=== PATIENT | male | born 1955 | race Caucasian/White ===

== ENCOUNTER → 2017-05-18 | Outpatient (CLI) | payer OTHER ==
[2017-05-18 13:33] LABS: ALT/SGPT 30 U/L (12-78); BLOOD UREA NITROGEN 16 mg/dl (7-18); BUN/CREATININE RATIO 16.3 (10-20); CALCIUM 8.5 mg/dl (8.5-10.1); CARBON DIOXIDE 26 mmol/L (21-32); CHLORIDE 110 mmol/L (98-107); CREATININE 0.99 mg/dl (0.60-1.40); GLUCOSE 100 mg/dl (70-99); POTASSIUM 3.7 mmol/L (3.5-5.1); SODIUM 142 mmol/L (136-145)
[2017-05-18 13:36] LABS: CHOLESTEROL 233 mg/dl (0-200); CHOLESTEROL/HDL RATIO 6.9; HDL CHOLESTEROL 34 mg/dl; LDL CHOLESTEROL CALCULATED 150 mg/dl; TRIGLYCERIDES 244 mg/dl (0-150); VERY LOW DENSITY LIPOPROT CALC 49 mg/dl
== END | disposition home or self-care (01) ==
LOC: C.LABMFLN 10:24
PROVIDERS: ATTEND Family Medicine
DX: I10 Essential (primary) hypertension (principal); E78.00 Pure hypercholesterolemia, unspecified

== ENCOUNTER 2017-11-20 05:23 | Inpatient (IN) | payer OTHER ==
[2017-11-14 09:50] VITALS: BMI 35.0
--- NOTE | 2017-11-14 10:15 | PAT Medication Instructions ---
Service Date Nov 14, 2017. Current Home Medication List Multivitamin (Multivitamin), 1 TAB PO QAM [Lisinopril Hctz], 1 TAB PO QAM Medication Instructions For Your Scheduled Surgery - Hold the following medications the morning of surgery: Multivitamin (Multivitamin), 1 TAB PO QAM [Lisinopril Hctz], 1 TAB PO QAM If you have any questions please call us at [phone] or [phone] or [phone]
[2017-11-14 11:22] LABS: BASO ABS # 0.15 K/uL (0-0.2); EOS % 3.8 %; EOS ABS # 0.28 K/uL (0-0.5); HEMATOCRIT 43.2 % (42-52); HEMOGLOBIN 15.4 g/dL (14.0-18.0); IG# 0.01 K/uL (0.00-0.02); LYMPH % 28.4 %; LYMPH ABS # 2.09 K/uL (1.2-3.4); MEAN CELL VOLUME 90.2 fL (80-100); MEAN CORPUSCULAR HEMOGLOBIN 32.2 pg (25-34); MEAN CORPUSCULAR HGB CONC 35.6 g/dl (32-36); MEAN PLATELET VOLUME 9.7 fL (7.4-10.4); MONO % 8.4 %; MONO ABS # 0.62 K/uL (0.11-0.59); NEUT % 57.3 %; NEUT ABS # 4.22 K/uL (1.4-6.5); PLATELET COUNT 238 K/uL (130-400); RED CELL DISTRIBUTION WIDTH CV 12.9 % (11.5-14.5); RED CELL DISTRIBUTION WIDTH SD 42.4 fL (36.4-46.3); WHITE BLOOD COUNT 7.37 K/uL (4.8-10.8)
[2017-11-14 11:37] LABS: CALCIUM 9.4 mg/dl (8.5-10.1); CREATININE 1.12 mg/dl (0.60-1.40); POTASSIUM 4.1 mmol/L (3.5-5.1)
[2017-11-20] VITALS (10 sets, daily range): BP systolic 120–173; BP diastolic 63–95; PULSE 54–74; TEMP 36.7–37.6; O2SAT 95–99; Ht 172.7 cm; Wt 105.6 kg
[~2017-11-20] VITALS: Ht 172.7 cm; Wt 105.6 kg
[~2017-11-20 05:23] MED LIST: LISINOPRIL HCTZ PO; MULT-506 PO
[2017-11-20] MEDS ORDERED: LACTATED RINGER'S 1000ML 1,000 ML IV SCH ×2 (06:00→08:12)
[2017-11-20] MEDS ORDERED: CEFAZOLIN 2000MG IV PUSH 15 ML IV SCH (06:00)
[2017-11-20] MEDS ORDERED: EpHEDrine SULFATE INJ 50 MG/ML AMP IV PRN (06:15)
[2017-11-20] MEDS ORDERED: HYDROmorphone INJ 1 MG/ML SYR IV PRN (06:15)
[2017-11-20] MEDS ORDERED: ONDANSETRON INJ 2 MG/ML 2 ML VIAL IV PRN ×2 (06:15→08:15)
[2017-11-20] MEDS ORDERED: PROMETHAZINE HCL INJ 12.5 MG in SODIUM CHLORIDE 0.9% 50ML 50 ML IV PRN ×2 (06:15→10:15)
[2017-11-20] MEDS ORDERED: ATROPINE SULFATE 0.1 MG/ML 5ML SYR IV PRN (06:15)
[2017-11-20] MEDS ORDERED: FENTANYL CITRATE INJ 50 MCG/1 ML 2 ML VIAL ONE ×2 (06:31→07:26)
[2017-11-20] MEDS ORDERED: MIDAZOLAM HCL 1 MG/ML 2ML VIAL ONE (06:31)
[2017-11-20] MEDS ORDERED: CEFAZOLIN SOD 1 GM VIAL ONE (06:40)
[2017-11-20] MEDS ORDERED: BUPIVACAINE 0.5 % 5 MG/1 ML MPF 30ML VIAL ONE (06:40)
[2017-11-20] MEDS ORDERED: LIDOCAINE HCL 1% 20 ML VIAL ONE (06:40)
--- NOTE | 2017-11-20 06:49 | History & Physical Bridge Note ---
H&P Re-Evaluation Bridge Note: I have examined the patient, reviewed the History & Physical and in the interval since the performance of the History & Physical I have noted the following changes of clinical significance: No changes noted
[2017-11-20] MEDS ORDERED: LIDOCAINE HCL 2% 2 ML VIAL (20MG/ML) ONE (07:38)
[2017-11-20] MEDS ORDERED: GLYCOPYRROLATE INJ 0.2 MG/ML VIAL ONE (07:38)
[2017-11-20] MEDS ORDERED: PROPOFOL IV EMULSION 10 MG/ML 20 ML VIAL IV ONE (07:38)
[2017-11-20] MEDS ORDERED: ROCURONIUM BROMIDE 10 MG/ML 5 ML VIAL IV ONE (07:38)
[2017-11-20] MEDS ORDERED: ONDANSETRON INJ 2 MG/ML 2 ML VIAL ONE (07:38)
[2017-11-20] MEDS ORDERED: DEXAMETHASONE SOD INJ 4 MG/ML VIAL ONE (07:38)
[2017-11-20] MEDS ORDERED: EpHEDrine SULFATE 50MG/5ML SYR ONE (07:38)
[2017-11-20] MEDS ORDERED: NEOSTIGMINE METHYLSULFATE 5 MG/5 ML SYR ONE (07:38)
--- NOTE | 2017-11-20 08:11 | [facility] Operative Report ---
Operative Report Operative Date Nov 20, 2017. Pre-Operative Diagnosis incisional hernia Post-Operative Diagnosis same Procedure(s) Performed incisional hernia repair Surgeon Rex Networking Engineer Surgeon(s) Tim Vo Estimated Blood Loss 10cc Findings 2 defects- umbilical and supraumbilical- approx 3 am Drains None Anesthesia Type General Complication(s) none Disposition Recovery Room / PACU I attest to the content of the Intraoperative Record and any orders documented therein. Any exceptions are noted below.
[2017-11-20] MEDS ORDERED: HYDROCODONE/ACETAMIN 5/325MG TAB PO PRN (08:15)
[2017-11-20] MEDS ORDERED: MoRPHine SULFATE 4 MG/ML 1 ML CARP\\VIAL IV PRN (08:15)
[2017-11-20] MEDS ORDERED: MoRPHine SULFATE 2 MG/ML CARP IV PRN (08:15)
[2017-11-20] MEDS ORDERED: PROMETHAZINE HCL INJ 25 MG in SODIUM CHLORIDE 0.9% 50ML 50 ML IV PRN (08:15)
--- NOTE | 2017-11-20 08:31 | OPERATIVE REPORT ---
DATE OF OPERATION: 11/20/2017 NAME OF OPERATION: Laparoscopic incisional hernia repair. PREOPERATIVE DIAGNOSIS: Incisional hernia. POSTOPERATIVE DIAGNOSIS: Same. STAFF SURGEON: Dr. Cleve Goodman. HEEL NAIL RASPER: Derian Vo PA-C ANESTHESIA: General. FINDINGS: The patient had 2 defects, one at the umbilicus and 1 just above in the supraumbilical area, equaling greater than 3 cm in diameter with omentum incarcerated within the sac. DESCRIPTION OF PROCEDURE: The patient was brought into the operating room and placed on the operating table in the supine position. Pneumatic stockings and orogastric tube were placed. 0.5% plain Marcaine was used to anesthetize all incisions. Incision was made in the left upper quadrant, carrying dissection down, identifying the peritoneum, placing a Veress needle and producing pneumoperitoneum. An 11-mm port was placed at this level and then under visualization on the left side, two 5-mm ports were placed. The omentum was then taken down both bluntly and sharply, reducing the 2 hernias. At this point, the fascia was exposed by mobilizing adipose tissue inferiorly and superiorly away from the fascia. A 12.5-cm piece of Surgimesh was obtained to get a 4-cm overlap. It was placed into the abdomen. The polypropylene was brought up against the fascia with the silicone toward the bowel using a small puncture and over the defect and using a suture passer. At this point, the mesh was secured to the abdominal wall using absorbable tacks in 2 layers, 1 outer and 1 inner row. At this point, the pneumoperitoneum was reduced. All ports were removed. The fascia in the left upper quadrant closed using interrupted 0 Vicryl suture. Subcutaneous tissue reapproximated using 0 Vicryl suture and then the skin reapproximated in the left upper quadrant using subcuticular 4-0 Monocryl with Steri-Strips. The other sites all closed using 5-0 Prolene suture. My business support assistant helped with entering the abdominal cavity, exposing the hernia sac, dissecting the tissue free and then closure of the abdomen as well as placement of the mesh. I attest to the content of the Intraoperative Record and any orders documented therein. Any exception s are noted below.
[2017-11-20] MEDS: FENTANYL CITRATE INJ 50 MCG/1 ML 2 ML VIAL IV PRN ×3 (08:37→08:48)
[2017-11-20] MEDS ORDERED: HYDR-5688 PO (08:39)
[2017-11-20] MEDS ORDERED: CEPH500C2 PO (08:39)
--- NOTE | 2017-11-20 08:42 | Discharge Instructions ---
Discharge Instructions Date of Service Nov 20, 2017. Admission Reason for Admission: Incisional Hernia Discharge Discharge Diagnosis / Problem: incisional hernia Discharge Goals Goal(s): Decrease discomfort, Improve function, Improve disease control Activity Recommendations Activity Limitations: as noted below Lifting Limitations: no more than 25 pounds Exercise/Sports Limitations: until after follow-up appointment May Resume Sexual Activity: when tolerated Shower/Bathe: tomorrow Driving or Machine Use: resume 3 days after discharge . Instructions / Follow-Up Instructions / Follow-Up SPECIAL CARE INSTRUCTIONS: * Cover incisions and change daily for comfort/drainage. * Leave steri strips in place Avoid constipation - may use Senokot S and Milk of magnesia twice daily as directed on the package * May use ibuprofen for pain as tolerated. * Expect some swelling and bruising. Call your doctor if: * Temperature above 101 degrees * Pain not relieved by pain medicine ordered * There is increased drainage or redness from any incision * You have any unanswered questions or concerns [phone]. FOLLOW UP VISIT: If not already scheduled, please call the office for a follow-up visit. for next week- wound check and some suture removal OFFICE PHONE NUMBER: Dr. Godoman Office Current Hospital Diet Patient's current hospital diet: Regular Diet Discharge Diet Recommended Diet: Regular Diet Procedures Procedures Performed: incisional hernia repair Pending Studies Studies pending at discharge: no Medical Emergencies . Who to Call and When: Medical Emergencies: If at any time you feel your situation is an emergency, please call 911 immediately. . Non-Emergent Contact Non-Emergency issues call your: Primary Care Provider, Surgeon . "Provider Documentation" section prepared by Cleve Goodman. .
--- NOTE | 2017-11-20 09:04 | Anesthesiology Progress Note ---
Anesthesia Post Op Note Date & Time Nov 20, 2017 at 09:03 Vital Signs Pain Intensity: 2 Vital Signs Past 12 Hours Date Time Temp Pulse Resp B/P (MAP) Pulse Ox O2 Delivery O2 Flow Rate FiO2 11/20/17 08:55 68 16 132/71 92 Nasal Cannula 3 11/20/17 08:45 66 20 132/72 98 Oxymask 10 11/20/17 08:35 69 20 150/81 99 Oxymask 10 11/20/17 08:29 36.5 83 10 161/84 94 Oxymask 10 11/20/17 06:02 37.3 66 18 173/95 (121) 96 Room Air Notes Mental Status: alert / awake / arousable, participated in evaluation Pt Amnestic to Procedure: Yes Nausea / Vomiting: adequately controlled Pain: adequately controlled Airway Patency, RR, SpO2: stable & adequate BP & HR: stable & adequate Hydration State: stable & adequate Anesthetic Complications: no major complications apparent Awake, doing well, no complaints. VSS.
--- NOTE | 2017-11-20 11:48 | Medical Consult ---
Consultation Date of Consultation: Nov 20, 2017. Attending Physician: Cleve Goodman M.D. History of Present Illness 62 years old man with past medical history of hypertension and dyslipidemia presented to the hospital for an elective repair of her ventral hernia. Procedure went uneventful and we were consulted for medical co management. Patient has no complaints at this time. Past Medical/Surgical History Hypertension Dyslipidemia Obesity Ventral hernia Social History Smoking Status: Never Smoker Allergies Coded Allergies: Statins (Verified Adverse Reaction, Mild, MUSCLE ACHES, 11/20/17) Current Inpatient Medications Current Inpatient Medications Medications (Trade) Dose Ordered Sig/Shae Route Start Time Stop Time Status Last Admin Dose Admin Lactated Ringer's 1,000 ml @ 15 mls/hr Q24H IV 11/20/17 06:00 11/21/17 05:59 11/20/17 06:30 15 MLS/HR Cefazolin Sodium 15 ml @ 3.75 mls/ min PREOP IV 11/20/17 06:00 11/20/17 18:00 11/20/17 07:12 3.75 MLS/MIN Miscellaneous Information (Order Awaiting Action) 1 ea QS N/A 11/20/17 10:15 12/20/17 10:14 Lactated Ringer's 1,000 ml @ 50 mls/hr Q20H IV 11/20/17 08:12 12/20/17 08:11 Cefazolin Sodium 1000 mg/Syringe 7.5 ml @ 2.5 mls/min Q8H IV 11/20/17 14:00 11/30/17 13:59 Heparin Sodium (Porcine) (Heparin Sq 5000 Unit/0.5ml) 5,000 unit Q12H SQ 11/21/17 08:00 12/21/17 07:59 UNV Acetaminophen/ Hydrocodone Bitart ([place] 5/325 Tab) 1 tab Q4 PRN PO 11/20/17 08:15 12/04/17 08:14 Acetaminophen/ Hydrocodone Bitart ([place] 5/325 Tab) 2 tab Q4 PRN PO 11/20/17 08:15 12/04/17 08:14 Morphine Sulfate (MoRPHine SULFATE INJ) 2 mg Q4H PRN IV 11/20/17 08:15 12/04/17 08:14 Morphine Sulfate (MoRPHine SULFATE INJ) 4 mg Q4H PRN IV 11/20/17 08:15 12/04/17 08:14 Promethazine HCl 25 mg/Sodium Chloride 51 ml @ 204 mls/hr Q6H PRN IV 11/20/17 08:15 12/20/17 08:14 Senna/Docusate Sodium (Senokot S Tab) 1 tab BID PO 11/20/17 11:00 12/20/17 10:59 Magnesium Hydroxide (Milk Of Magnesia Susp) 30 ml BID PO 11/20/17 11:00 12/20/17 10:59 Ondansetron HCl (Zofran Inj) 4 mg Q6H PRN IV 11/20/17 08:15 12/20/17 08:14 Promethazine HCl 12.5 mg/Sodium Chloride 50.5 ml @ 204 mls/hr Q6H PRN IV 11/20/17 10:15 12/20/17 10:14 Review of Systems Constitutional: No fever, No chills, No sweats, No weight loss, No weakness, No fatigue, No problem reported Eyes: No worsening of vision, No eye pain, No redness, No discharge, No diplopia, No problem reported ENT: No hearing loss, No unusual epistaxis, No nasal symptoms, No sore throat, No tinnitus, No dental problems, No trouble swallowing, No problem reported Respiratory: No cough, No sputum, No wheezing, No shortness of breath, No dyspnea on exertion, No dyspnea at rest, No hemoptysis, No problem reported Cardiovascular: No chest pain, No orthopnea, No PND, No edema, No claudication , No palpitations, No problem reported Abdomen: No pain, No nausea, No vomiting, No diarrhea, No constipation, No GI bleeding, No problem reported Musculoskeletal: No joint pain, No muscle pain, No swelling, No calf pain, No problem reported Genitourinary - Male: No hematuria, No dysuria, No urinary frequency, No urinary urgency, No urinary hesitancy, No urinary retention, No urinary incontinence, No penile discharge, No lesions, No impotence, No problem reported Neurologic: No memory loss, No paralysis, No weakness, No numbness/tingling, No vertigo, No balance problems, No problem reported Psychiatric: No depression symptoms, No anhedonism, No anxiety, No insomnia, No substance abuse, No problem reported Endocrine: No fatigue, No excessive thirst, No excessive urination, No problem reported Hematologic / Lymphatic: No abnormal bleeding/bruising, No clotting problems, No swollen lymph nodes, No night sweats, No problem reported Integumentary: No rash, No itch, No new/changing skin lesions, No color change , No bleeding, No problem reported Allergic / Immunologic: No environmental allergies, No seasonal allergies, No pet sensitivities, No food allergies, No hives, No frequent infections, No poor healing, No prolonged convalescence, No problem reported Physical Exam Date Time Temp Pulse Resp B/P (MAP) Pulse Ox O2 Delivery O2 Flow Rate FiO2 11/20/17 10:30 74 18 120/64 (82) 99 11/20/17 10:10 54 18 138/84 (102) 96 11/20/17 09:30 Nasal Cannula 3.0 11/20/17 09:30 36.7 59 16 122/72 (89) 95 Nasal Cannula 3.0 11/20/17 09:30 95 Nasal Cannula 3.0 11/20/17 09:15 56 22 126/79 93 Nasal Cannula 3 11/20/17 09:05 36.2 56 19 143/67 93 Nasal Cannula 3 11/20/17 08:55 68 16 132/71 92 Nasal Cannula 3 11/20/17 08:45 66 20 132/72 98 Oxymask 10 11/20/17 08:35 69 20 150/81 99 Oxymask 10 11/20/17 08:29 36.5 83 10 161/84 94 Oxymask 10 11/20/17 06:02 37.3 66 18 173/95 (121) 96 Room Air General Appearance: WD/WN, no apparent distress Head: normocephalic, atraumatic Eyes: normal inspection, EOMI ENT: normal ENT inspection, hearing grossly normal, pharynx normal Neck: supple Respiratory/Chest: chest non-tender, lungs clear, normal breath sounds, no respiratory distress, no accessory muscle use Cardiovascular: regular rate, rhythm, no edema, no gallop, no JVD, no murmur, normal peripheral pulses Abdomen/GI: normal bowel sounds, soft, + tenderness, + distended Back: normal inspection Extremities/Musculoskelatal: normal inspection, no calf tenderness, normal capillary refill, no pedal edema, normal range of motion Neurologic/Psych: qualitative researcher II-XII nml as tested, no motor/sensory deficits, alert, normal mood/affect, normal reflexes, oriented x 3 Skin: normal color, warm/dry, no rash Laboratory Results Recent labs showed white blood cell count of 7.3 hemoglobin of 15.4 platelet count of 238, BUN 17 creatinine 1.1 sodium is 139 potassium 4.1 Assessment & Plan 62 years old man with past medical history of hypertension and dyslipidemia presented to the hospital for an elective repair of her ventral hernia. Procedure went uneventful and we were consulted for medical co management. Patient has no complaints at this time. Assessment Hypertension Dyslipidemia Obesity Sinus bradycardia Ventral hernia status post repair Assessment: severe osteoarthritis that failed outpatient conservative measures. Patient presented to the hospital for an elective procedure Plan Status post laparoscopic ventral hernia repair, went uneventful full 3/12 postoperative day #0 Patient tolerated procedure well with minimal blood loss Appears to be stable Continue outpatient medications Follow-up labs Ensure adequate oral/parenteral intake Pain management DVT prophylaxis as per the choice of primary surgical team
[2017-11-20] MEDS: MAGNESIUM HYDROXIDE SUSP 30 ML UDC PO SCH ×2 (11:59→21:14)
[2017-11-20] MEDS: DOCUSATE SODIUM/SENNA 50/8.6MG TAB PO SCH ×2 (11:59→21:14)
[2017-11-20] MEDS: HYDROCODONE/ACETAMIN 5/325MG TAB PO PRN ×2 (12:00→16:24)
[2017-11-20] MEDS: CEFAZOLIN IV 1,000 MG in SYRINGE 0 ML IV SCH ×2 (13:58→21:14)
[2017-11-20] MEDS ORDERED: IV FLUIDS COMPLETED PRN (16:30)
[2017-11-21 03:24] VITALS: BP 145/75; PULSE 64; TEMP 36.7; O2SAT 95
[2017-11-21] MEDS: CEFAZOLIN IV 1,000 MG in SYRINGE 0 ML IV SCH ×3 (05:17→21:44)
[2017-11-21 05:47] LABS: BASO % 0.4 %; BASO ABS # 0.04 K/uL (0-0.2); EOS % 0.4 %; EOS ABS # 0.04 K/uL (0-0.5); HEMATOCRIT 37.4 % (42-52); HEMOGLOBIN 12.8 g/dL (14.0-18.0); IG# 0.03 K/uL (0.00-0.02); LYMPH % 15.6 %; LYMPH ABS # 1.65 K/uL (1.2-3.4); MEAN CELL VOLUME 90.6 fL (80-100); MEAN CORPUSCULAR HGB CONC 34.2 g/dl (32-36); MEAN PLATELET VOLUME 9.9 fL (7.4-10.4); MONO % 8.1 %; MONO ABS # 0.86 K/uL (0.11-0.59); NEUT % 75.2 %; NEUT ABS # 7.96 K/uL (1.4-6.5); PLATELET COUNT 208 K/uL (130-400); RED CELL DISTRIBUTION WIDTH CV 12.9 % (11.5-14.5); RED CELL DISTRIBUTION WIDTH SD 42.8 fL (36.4-46.3); WHITE BLOOD COUNT 10.58 K/uL (4.8-10.8)
[2017-11-21 05:58] LABS: INR 1.1 (0.9-1.1); PTT PATIENT 24.3 SECONDS (21.0-31.0)
[2017-11-21] MEDS ORDERED: IBUPROFEN 600 MG TAB PO PRN (06:00)
--- NOTE | 2017-11-21 06:07 | Surgery Progress Note ---
Surgery Progress Note Date of Service Nov 21, 2017. Subjective some mild pain- doesn't want pain med Objective Vital Signs: Date Time Temp Pulse Resp B/P (MAP) Pulse Ox O2 Delivery O2 Flow Rate FiO2 11/21/17 03:24 36.7 64 17 145/75 (98) 95 CPAP 11/21/17 00:15 Room Air 11/20/17 22:55 36.8 72 17 120/63 (82) 96 CPAP 11/20/17 19:01 37.6 72 18 125/75 (92) 96 Room Air 11/20/17 15:40 Room Air 11/20/17 14:52 37.1 65 20 143/82 (102) 96 Room Air 11/20/17 13:08 55 154/85 (108) 11/20/17 12:57 69 16 165/95 (118) 96 Nasal Cannula 3.0 11/20/17 11:36 54 18 120/70 (87) 99 11/20/17 10:30 74 18 120/64 (82) 99 11/20/17 10:10 54 18 138/84 (102) 96 11/20/17 09:30 Nasal Cannula 3.0 11/20/17 09:30 36.7 59 16 122/72 (89) 95 Nasal Cannula 3.0 11/20/17 09:30 95 Nasal Cannula 3.0 11/20/17 09:15 56 22 126/79 93 Nasal Cannula 3 11/20/17 09:05 36.2 56 19 143/67 93 Nasal Cannula 3 11/20/17 08:55 68 16 132/71 92 Nasal Cannula 3 11/20/17 08:45 66 20 132/72 98 Oxymask 10 11/20/17 08:35 69 20 150/81 99 Oxymask 10 11/20/17 08:29 36.5 83 10 161/84 94 Oxymask 10 General Appearance: no apparent distress Respiratory/Chest: no respiratory distress Abdomen: normal bowel sounds, + distended Incision(s): dry, intact Laboratory Results: Results Past 24 Hours Test 11/21/17 05:19 Range/Units White Blood Count 10.58 4.8-10.8 K/uL Red Blood Count 4.13 4.7-6.1 M/uL Hemoglobin 12.8 14.0-18.0 g/dL Hematocrit 37.4 42-52 % Mean Corpuscular Volume 90.6 80-100 fL Mean Corpuscular Hemoglobin 31.0 25-34 pg Mean Corpuscular Hemoglobin Concent 34.2 32-36 g/dl Platelet Count 208 130-400 K/uL Mean Platelet Volume 9.9 7.4-10.4 fL Neutrophils (%) (Auto) 75.2 % Lymphocytes (%) (Auto) 15.6 % Monocytes (%) (Auto) 8.1 % Eosinophils (%) (Auto) 0.4 % Basophils (%) (Auto) 0.4 % Neutrophils # (Auto) 7.96 1.4-6.5 K/uL Lymphocytes # (Auto) 1.65 1.2-3.4 K/uL Monocytes # (Auto) 0.86 0.11-0.59 K/uL Eosinophils # (Auto) 0.04 0-0.5 K/uL Basophils # (Auto) 0.04 0-0.2 K/uL RDW Standard Deviation 42.8 36.4-46.3 fL RDW Coefficient of Variation 12.9 11.5-14.5 % Immature Granulocyte % (Auto) 0.3 % Immature Granulocyte # (Auto) 0.03 0.00-0.02 K/uL Prothrombin Time 11.2 9.0-12.0 SECONDS Prothromb Time International Ratio 1.1 0.9-1.1 Activated Partial Thromboplast Time 24.3 21.0-31.0 SECONDS Partial Thromboplastin Ratio 0.9 Assessment & Plan 11/21/17- s/p laparoscopic repair of incisional hernia also had small umb hernia. Cont IV atbx, monitor GI function- ambulate. Plan d/c tomorrow
[2017-11-21 06:16] LABS: ALBUMIN 3.1 gm/dl (3.4-5.0); CALCIUM 8.2 mg/dl (8.5-10.1); CREATININE 1.2 mg/dl (0.60-1.40); POTASSIUM 3.8 mmol/L (3.5-5.1)
[2017-11-21 07:10] VITALS: BP 117/52; PULSE 64; TEMP 36.8; O2SAT 96
--- NOTE | 2017-11-21 08:10 | Anesthesiology Progress Note ---
Anesthesia Post Op Note Date & Time Nov 21, 2017 at 08:09 Vital Signs Pain Intensity: 3.0 Vital Signs Past 12 Hours Date Time Temp Pulse Resp B/P (MAP) Pulse Ox O2 Delivery O2 Flow Rate FiO2 11/21/17 07:10 36.8 64 18 117/52 (73) 96 Room Air 11/21/17 03:24 36.7 64 17 145/75 (98) 95 CPAP 11/21/17 00:15 CPAP 11/20/17 22:55 36.8 72 17 120/63 (82) 96 CPAP Notes Mental Status: alert / awake / arousable Pt Amnestic to Procedure: Yes Nausea / Vomiting: adequately controlled Pain: adequately controlled BP & HR: stable & adequate Hydration State: stable & adequate Anesthetic Complications: no major complications apparent
[2017-11-21] MEDS: DOCUSATE SODIUM/SENNA 50/8.6MG TAB PO SCH ×2 (09:05→21:40)
[2017-11-21] MEDS: MAGNESIUM HYDROXIDE SUSP 30 ML UDC PO SCH ×2 (09:09→21:44)
[2017-11-21] MEDS: HEPARIN SOD 5000 UNIT/0.5 ML CARP SQ SCH ×2 (09:09→19:54)
[2017-11-21 12:25] VITALS: BP 157/83; PULSE 61; TEMP 36.7; O2SAT 95
[2017-11-21] MEDS: HYDROCODONE/ACETAMIN 5/325MG TAB PO PRN (12:31)
[2017-11-21 15:26] VITALS: BP 164/76; PULSE 66; TEMP 37.1; O2SAT 93
[2017-11-21] MEDS ORDERED: BISACODYL 10 MG SUPP PR STA (16:08)
[2017-11-21] MEDS ORDERED: BISACODYL 10 MG SUPP ONE ×3 (19:49→21:41)
--- NOTE | 2017-11-21 22:03 | Progress Note ---
Subjective Date of Service: Nov 21, 2017. Subjective Pt evaluation today including: conversation w/ patient, physical exam Patient reports no new complaints today. Review of Systems Constitutional: No fever, No chills Eyes: No worsening of vision ENT: No hearing loss Respiratory: No cough Cardiac: No chest pain Abdomen: + pain Musculoskeletal: No joint pain Neurologic: No memory loss Psychiatric: No depression symptoms Heme: No abnormal bleeding/bruising Endo: No fatigue Skin: No rash All Other Systems: Reviewed and Negative Medications Current Inpatient Medications Medications (Trade) Dose Ordered Sig/Shae Route Start Time Stop Time Status Last Admin Dose Admin Miscellaneous Information (Order Awaiting Action) 1 ea QS N/A 11/20/17 10:15 12/20/17 10:14 Cefazolin Sodium 1000 mg/Syringe 7.5 ml @ 2.5 mls/min Q8H IV 11/20/17 14:00 11/30/17 13:59 11/21/17 21:44 2.5 MLS/MIN Heparin Sodium (Porcine) (Heparin Sq 5000 Unit/0.5ml) 5,000 unit Q12H SQ 11/21/17 08:00 12/21/17 07:59 11/21/17 19:54 5,000 UNIT Acetaminophen/ Hydrocodone Bitart ([place] 5/325 Tab) 1 tab Q4 PRN PO 11/20/17 08:15 12/04/17 08:14 Acetaminophen/ Hydrocodone Bitart ([place] 5/325 Tab) 2 tab Q4 PRN PO 11/20/17 08:15 12/04/17 08:14 11/21/17 12:31 2 TAB Morphine Sulfate (MoRPHine SULFATE INJ) 2 mg Q4H PRN IV 11/20/17 08:15 12/04/17 08:14 Morphine Sulfate (MoRPHine SULFATE INJ) 4 mg Q4H PRN IV 11/20/17 08:15 12/04/17 08:14 Promethazine HCl 25 mg/Sodium Chloride 51 ml @ 204 mls/hr Q6H PRN IV 11/20/17 08:15 12/20/17 08:14 Senna/Docusate Sodium (Senokot S Tab) 1 tab BID PO 11/20/17 11:00 12/20/17 10:59 11/21/17 21:40 1 TAB Magnesium Hydroxide (Milk Of Magnesia Susp) 30 ml BID PO 11/20/17 11:00 12/20/17 10:59 11/21/17 21:44 30 ML Ondansetron HCl (Zofran Inj) 4 mg Q6H PRN IV 11/20/17 08:15 12/20/17 08:14 Promethazine HCl 12.5 mg/Sodium Chloride 50.5 ml @ 204 mls/hr Q6H PRN IV 11/20/17 10:15 12/20/17 10:14 Miscellaneous (Iv Fluids Completed) 1 ea PRN PRN N/A 11/20/17 16:30 11/20/18 16:29 Ibuprofen (Motrin Tab) 600 mg Q6 PRN PO 11/21/17 06:00 12/21/17 05:59 Objective Vital Signs Date Time Temp Pulse Resp B/P (MAP) Pulse Ox O2 Delivery O2 Flow Rate FiO2 11/21/17 15:26 37.1 66 16 164/76 (105) 93 Room Air 11/21/17 12:25 36.7 61 16 157/83 (107) 95 Room Air 11/21/17 07:40 Room Air 11/21/17 07:10 36.8 64 18 117/52 (73) 96 Room Air 11/21/17 03:24 36.7 64 17 145/75 (98) 95 CPAP 11/21/17 00:15 CPAP 11/20/17 22:55 36.8 72 17 120/63 (82) 96 CPAP Physical Exam General Appearance: WD/WN, no apparent distress Eyes: normal inspection ENT: normal ENT inspection Neck: supple, no adenopathy Respiratory/Chest: chest non-tender, lungs clear, normal breath sounds, no accessory muscle use Cardiovascular: regular rate, rhythm, no edema Abdomen: normal bowel sounds, soft, no pulsatile mass, + tenderness (mild) Extremities: normal range of motion Neurologic/Psychiatric: alert, oriented x 3 Skin: normal color Lymphatic: no adenopathy Laboratory Results Last 24 Hours Test 11/21/17 05:19 White Blood Count 10.58 K/uL Red Blood Count 4.13 M/uL Hemoglobin 12.8 g/dL Hematocrit 37.4 % Mean Corpuscular Volume 90.6 fL Mean Corpuscular Hemoglobin 31.0 pg Mean Corpuscular Hemoglobin Concent 34.2 g/dl Platelet Count 208 K/uL Mean Platelet Volume 9.9 fL Neutrophils (%) (Auto) 75.2 % Lymphocytes (%) (Auto) 15.6 % Monocytes (%) (Auto) 8.1 % Eosinophils (%) (Auto) 0.4 % Basophils (%) (Auto) 0.4 % Neutrophils # (Auto) 7.96 K/uL Lymphocytes # (Auto) 1.65 K/uL Monocytes # (Auto) 0.86 K/uL Eosinophils # (Auto) 0.04 K/uL Basophils # (Auto) 0.04 K/uL RDW Standard Deviation 42.8 fL RDW Coefficient of Variation 12.9 % Immature Granulocyte % (Auto) 0.3 % Immature Granulocyte # (Auto) 0.03 K/uL Prothrombin Time 11.2 SECONDS Prothromb Time International Ratio 1.1 Activated Partial Thromboplast Time 24.3 SECONDS Partial Thromboplastin Ratio 0.9 Sodium Level 139 mmol/L Potassium Level 3.8 mmol/L Chloride Level 106 mmol/L Carbon Dioxide Level 26 mmol/L Anion Gap 7.0 mmol/L Blood Urea Nitrogen 21 mg/dl Creatinine 1.20 mg/dl Est Creatinine Clear Calc Drug Dose 77.1 ml/min Estimated GFR () 75.7 Estimated GFR (Non- 65.3 BUN/Creatinine Ratio 17.9 Random Glucose 131 mg/dl Calcium Level 8.2 mg/dl Magnesium Level 2.7 mg/dl Total Bilirubin 0.4 mg/dl Aspartate Amino Transf (AST/SGOT) 35 U/L Alanine Aminotransferase (ALT/SGPT) 63 U/L Alkaline Phosphatase 82 U/L Total Protein 6.0 gm/dl Albumin 3.1 gm/dl Globulin 2.9 gm/dl Albumin/Globulin Ratio 1.1 Hepatitis C Antibody Screen NEG Assessment and Plan 62 years old man with past medical history of hypertension and dyslipidemia presented to the hospital for an elective repair of her ventral hernia. Procedure went uneventful and we were consulted for medical co management. Patient has no complaints at this time. Assessment Hypertension Continue current meds BP appears to be at goal Dyslipidemia Cont home meds. stable Obesity Recommend home diet and exercise Sinus bradycardia stable Ventral hernia status post repair Status post laparoscopic ventral hernia repair, went uneventful full 3/12 postoperative day #1 Patient tolerated procedure well\ Continues to be stable Ensure adequate oral/parenteral intake Pain management DVT prophylaxis as per the choice of primary surgical team Will sign off case today. Please call us if any questions or concerns
[2017-11-21 22:54] VITALS: BP 148/69; PULSE 78; TEMP 37.9; O2SAT 93
[2017-11-22 05:30] VITALS: TEMP 37.3
[2017-11-22] MEDS ORDERED: SOD PHOSPHATE/SOD BIPHOSPHATE ENEMA 132 ML BTL PR STA (06:16)
--- NOTE | 2017-11-22 06:29 | Surgery Progress Note ---
Surgery Progress Note Date of Service Nov 22, 2017. Subjective crampy/gas pains- associated with vigorous bowel sounds no signif bowel movement yet, some dry heaves, no emesis Objective Vital Signs: Date Time Temp Pulse Resp B/P (MAP) Pulse Ox O2 Delivery O2 Flow Rate FiO2 11/22/17 05:30 37.3 11/22/17 01:57 CPAP 11/21/17 22:54 37.9 78 18 148/69 (95) 93 Room Air 11/21/17 15:26 37.1 66 16 164/76 (105) 93 Room Air 11/21/17 15:25 Room Air 11/21/17 12:25 36.7 61 16 157/83 (107) 95 Room Air 11/21/17 07:40 Room Air 11/21/17 07:10 36.8 64 18 117/52 (73) 96 Room Air General Appearance: + mild distress Respiratory/Chest: no respiratory distress Abdomen: + distended, + pertinent finding (has active bowel sounds, hyperactive at times) Incision(s): dry, intact Laboratory Results: Results Past 24 Hours Test 11/22/17 06:06 Range/Units Assessment & Plan 11/22/17- seems to have good bowel sounds- had some hard stool out- will check film, try enema and Reglan. also try some Miralax. May need NG if vomits but does not seem to have diffuse ileus,.. check labs addendum- low K+ and likely colonic ileus- see how he does with above plan- hold NG unless worsens. replace K+ 11/21/17- s/p laparoscopic repair of incisional hernia also had small umb hernia. Cont IV atbx, monitor GI function- ambulate. Plan d/c tomorrow 11/21/17- s/p laparoscopic repair of incisional hernia also had small umb hernia. Cont IV atbx, monitor GI function- ambulate. Plan d/c tomorrow
[2017-11-22] MEDS: CEFAZOLIN IV 1,000 MG in SYRINGE 0 ML IV SCH ×3 (06:31→21:19)
[2017-11-22 07:32] VITALS: BP 160/90; PULSE 72; TEMP 37.4; O2SAT 95
--- NOTE | 2017-11-22 07:38 | DIAGNOSTIC IMAGING REPORT ---
CHEST AND ABDOMEN 2 VIEWS HISTORY: Ileus. Generalized abdominal pain. COMPARISON: FINDINGS: Low lung volumes. The heart is enlarged. Interstitial and vascular thickening may represent mild congestive change. No focal lung consolidations to suggest pneumonia. Prior cholecystectomy. Old, healed right clavicle fracture. No renal or ureteral calculi. Multiple mildly dilated gas-filled loops of large small bowel seen throughout the abdomen. Findings favor an ileus. These contain small fluid levels. IMPRESSION: 1. Multiple mildly dilated gas filled loops of large and small bowel seen within the abdomen. This favors an ileus. No definite evidence for obstruction. 2. Cardiomegaly with mild congestive change. Electronically signed by: Truman Benitez M.D. 11/22/2017 7:37 AM Dictated Date/Time: 11/22/2017 7:35 AM
[2017-11-22 07:52] VITALS: O2SAT 95
[2017-11-22 07:56] LABS: CREATININE 1.01 mg/dl (0.60-1.40); PHOSPHORUS 2.1 mg/dl (2.5-4.9); POTASSIUM 3.1 mmol/L (3.5-5.1)
[2017-11-22] MEDS: METOCLOPRAMIDE HCL INJ 5 MG/ML 2 ML VIAL IV. SCH ×3 (08:40→19:38)
[2017-11-22] MEDS: HEPARIN SOD 5000 UNIT/0.5 ML CARP SQ SCH ×2 (08:47→19:41)
[2017-11-22] MEDS: DOCUSATE SODIUM/SENNA 50/8.6MG TAB PO SCH ×2 (08:48→21:18)
[2017-11-22] MEDS: MAGNESIUM HYDROXIDE SUSP 30 ML UDC PO SCH (08:49)
[2017-11-22] MEDS: POLYETHYLENE (MIRALAX) 17 GM PACK PO SCH ×2 (09:19→12:35)
[2017-11-22] MEDS: POTASSIUM CHLR 10MEQ / WTR IV SCH ×4 (09:19→12:35)
[2017-11-22 15:33] VITALS: BP 134/74; PULSE 71; TEMP 37.5; O2SAT 92
[2017-11-22 15:45] VITALS: O2SAT 92
[2017-11-22 22:52] VITALS: BP 151/70; PULSE 71; TEMP 36.8; O2SAT 94
[2017-11-23 05:33] LABS: CALCIUM 8.1 mg/dl (8.5-10.1); CREATININE 1.06 mg/dl (0.60-1.40); PHOSPHORUS 2.4 mg/dl (2.5-4.9); POTASSIUM 3.9 mmol/L (3.5-5.1)
[2017-11-23] MEDS: CEFAZOLIN IV 1,000 MG in SYRINGE 0 ML IV SCH (05:40)
[2017-11-23 07:37] VITALS: BP 139/95; PULSE 69; TEMP 37.3; O2SAT 99
[2017-11-23] MEDS: HEPARIN SOD 5000 UNIT/0.5 ML CARP SQ SCH (08:00)
--- NOTE | 2017-11-23 08:45 | DISCHARGE SUMMARY ---
DATE OF DISCHARGE: 11/23/2017 PRINCIPAL DIAGNOSES: Incisional hernia. Colonic ileus. PROCEDURES: The patient underwent laparoscopic incisional hernia repair. HISTORY OF PRESENT ILLNESS: The patient is a 62-year-old male who has a history of incisional hernia, who was brought in for elective laparoscopic repair. HOSPITAL COURSE: The patient was brought into the hospital on 11/20/2017 where he was taken to the operating room where he underwent laparoscopic incisional hernia repair. He did well from the operation. He did have some evidence of colonic ileus postoperatively causing distention and pain, but this did resolve with good bowel function. He was felt stable for discharge home on 11/23/2017 to be followed in the surgical clinic within 1 week.
[2017-11-23] MEDS: DOCUSATE SODIUM/SENNA 50/8.6MG TAB PO SCH (08:59)
[2017-11-23 09:28] VITALS: BP 139/95; PULSE 69; TEMP 37.3; O2SAT 99
== END 2017-11-23 11:30 | disposition home or self-care (01) | DRG 355 ==
LOC: C.ACU 05:23 → C.MSN 08:16 → ENRESERV 08:52 → OBSVTOIN 11-21 06:08
PROVIDERS: ADMIT Surgery; ATTEND Surgery
PROC: 0WUF4JZ Supplement Abdominal Wall with Synthetic Substitute, Percutaneous Endoscopic Approach (ICD-10-PCS; principal; 2017-11-20 07:00)
DX: K43.0 Incisional hernia with obstruction, without gangrene (principal); K42.9 Umbilical hernia without obstruction or gangrene; I10 Essential (primary) hypertension; E78.00 Pure hypercholesterolemia, unspecified; E78.5 Hyperlipidemia, unspecified; E66.9 Obesity, unspecified; Z79.899 Other long term (current) drug therapy; Z68.35 Body mass index [BMI] 35.0-35.9, adult; Z88.8 Allergy status to other drugs, medicaments and biological substances; Z80.3 Family history of malignant neoplasm of breast; Z83.3 Family history of diabetes mellitus

== ENCOUNTER 2020-01-18 15:04 | Inpatient (IN) ==
[2020-01-18] MEDS ORDERED: dilTIAZem HCl 5 MG/ML 5 ML VIAL IV STA (16:11)
[2020-01-18] MEDS ORDERED: STAT IV Infusion **Titration per Protocol STA (16:11)
--- NOTE | 2020-01-18 16:13 | XRay Report ---
XR chest 1V portable CLINICAL HISTORY: 65 years-old Male presenting with Dyspnea, fever. TECHNIQUE: Portable semiupright AP view of the chest was obtained. COMPARISON: 11/22/2017. FINDINGS: Cardiomediastinal silhouette normal. Mildly low lung volumes. No focal opacity. No large effusion or pneumothorax. Degenerative changes of the thoracic spine. Posttraumatic deformity of the right clavic le. Upper abdomen normal. IMPRESSION: 1. No acute cardiopulmonary disease. ACT 112: Negative or not required by law. Electronically signed by: Dean Valente M.D. 01/18/2020 4:12 PM
--- NOTE | 2020-01-18 16:14 | Emergency Department Note ---
History of Present Illness General Chief Complaint: Shortness of Breath/Dyspnea Stated Complaint: PINCHED NERVE - LUNGS HURT - SOB Time Seen by Provider: 01/18/20 15:31 Source: patient Mode of arrival: ambulatory Limitations: no limitations History of Present Illness Provider Complaint: shortness of breath Onset (ago): hour(s) (7) Severity: moderate Consistency/Duration: + intermittent Maximum Pain Intensity: 8 Current Pain Intensity: 5 Relieved By: + nothing Exacerbated By: + deep breaths Context: + recent illness (Flu 6-8 wks ago) Associated symptoms: + denies other symptoms Treatment prior to arrival: none HPI Narrative: This is a 65-year-old male who presents to the ED with a chief complaint of right-sided mid chest pain. The patient states that it hurts when he takes a deep breath. The symptoms started this morning. He denies any specific shortness of breath although did feel a little winded this morning. He also states that he recently has been having some joint pain. He states that his pains have been going on for about a month. He states that it was initially in his right hip and then the left hip and left knee and now just minimally in the left hip. He is unsure if this is related. He states that he had an x-ray a couple of weeks ago and is due for an EMG on Monday. The patient's breathing issues started this morning. He denies recent illness other than 6 to 8 weeks ago having the flu. He was diagnosed with influenza A. He has not had any respiratory illness symptoms in the past week. He does have a fever here of 38.3. Respiratory rate was documented at 52 with a heart rate of 92. He does seem somewhat tachypneic on exam. He is otherwise in no distress. Documented heart rate was 92 with a twelve-lead EKG shows that he is in A. fib with RVR with a heart rate of 143. Related Data Home oxygen amount: none Home Medications Home Medications Medication Instructions Recorded Confirmed Type multivitamin 1 tab PO DAILY 06/09/19 01/18/20 History hydrochlorothiazide 25 mg tablet 25 mg PO DAILY #90 tab 09/30/19 01/18/20 Rx losartan 100 mg tablet 100 mg PO DAILY #90 tab 09/30/19 01/18/20 Rx gabapentin 300 mg capsule 300 mg PO BID #60 cap 12/23/19 01/18/20 Rx hydrocodone 5 mg-acetaminophen 325 See Rx Instructions PO Q8H PRN #60 12/30/19 01/18/20 Rx mg tablet tab Allergies Allergy/AdvReac Type Severity Reaction Status Date / Time Eghxqtb-Mox-Axo Reductase AdvReac Mild MUSCLE Verified 01/18/20 16:58 Inhibitor ACHES Past Med/Surg History Medical History Benign essential hypertension BPH (benign prostatic hyperplasia) Obstructive sleep apnea Umbilical hernia Surgical History History of cholecystectomy History of incisional hernia repair (Inactive) Family History Mother Breast cancer Hypertension Father COPD (chronic obstructive pulmonary disease) Grandmother (Maternal) Cancer Grandfather Stroke Denies family history of Rheumatoid arthritis Sudden SIDS (sudden infant syndrome) Ovarian cancer Prostate cancer Diabetes Deep vein thrombosis Osteoporosis Coronary heart disease Dyslipidemia Cerebral aneurysm Alzheimer disease Bipolar disorder Clotting disorder Crohn's disease Dementia Depression Heart disease Kidney disease Myocardial infarction Osteoarthritis Schizophrenia Congenital kidney disease Gestational diabetes Lung cancer Colorectal cancer Pulmonary embolism Lung disease Ulcerative colitis Colonic polyp Asthma Cystic kidney disease Social History Preferred Language: Macedonian Communication Ability: Effective Visual Impairment: No Limitations Hearing Ability: Normal Medical Insurance Coding Specialist Required: No Beliefs That Will Affect Care: None marital status: Single Current Living Situation: Alone current occupational status: employed current occupation: [employer] Feels Safe at Home: Yes Smoking Status: Never smoker Second Hand Exposure: No ; Hx Alcohol Use: Yes Alcohol Intake Frequency: Holidays/Special Occasions Childhood Exposure to Second-Hand Smoke: Yes caffeine: Yes Dental Care, Regularly: Yes Physical Activity Frequency: Does not Exercise Seatbelt Use: sometimes Sunscreen Use: No Review of Systems A total of 10 systems reviewed and were otherwise negative Physical Exam Vital Signs: Vital Signs - 24 hr 01/18/20 15:18 01/18/20 16:13 01/18/20 16:15 Temperature 38.3 C H Temperature Source Oral Pulse Rate 92 H 139 H Pulse Rate [Apical ] 152 H Pulse Rate from Sp O2 Sensor 143 H Respiratory Rate 52 H 38 H 34 H Respiratory Effort / Characteristics Non-Labored Respiratory Depth Normal Blood Pressure 115/68 130/79 Blood Pressure [Ri ght Arm] 125/92 Blood Pressure Courtney n 83 88 Blood Pressure Courtney n [Right Arm] 103 Pulse Oximetry 94 94 93 Oxygen Delivery Me thod Room Air Room Air Sepsis Recent Feve r Within 48 Hours No Sepsis Action Take n by Nursing No Action Required 01/18/20 16:16 01/18/20 16:30 01/18/20 16:46 Temperature Temperature Source Pulse Rate 135 H 119 H Pulse Rate [Apical ] Pulse Rate from Sp O2 Sensor Respiratory Rate 42 H 42 H Respiratory Effort / Characteristics Respiratory Depth Blood Pressure 142/87 H 118/82 Blood Pressure [Ri ght Arm] Blood Pressure Courtney n 93 102 Blood Pressure Courtney n [Right Arm] Pulse Oximetry 93 94 94 Oxygen Delivery Me thod Room Air Sepsis Recent Feve r Within 48 Hours Sepsis Action Take n by Nursing 01/18/20 16:57 01/18/20 17:01 01/18/20 17:21 Temperature Temperature Source Pulse Rate 123 H 131 H Pulse Rate [Apical ] 124 H Pulse Rate from Sp O2 Sensor Respiratory Rate 29 H 34 H Respiratory Effort / Characteristics Labored Respiratory Depth Blood Pressure 129/69 143/81 H Blood Pressure [Ri ght Arm] 129/69 Blood Pressure Courtney n 96 99 Blood Pressure Courtney n [Right Arm] 89 Pulse Oximetry 94 94 Oxygen Delivery Me thod Room Air Room Air Sepsis Recent Feve r Within 48 Hours Sepsis Action Take n by Nursing 01/18/20 17:23 01/18/20 17:30 01/18/20 17:45 Temperature 38.8 C H Temperature Source Oral Pulse Rate 117 H Pulse Rate [Apical ] 127 H Pulse Rate from Sp O2 Sensor Respiratory Rate 40 H 28 H Respiratory Effort / Characteristics Respiratory Depth Blood Pressure 122/84 Blood Pressure [Ri ght Arm] 128/85 Blood Pressure Courtney n 98 Blood Pressure Courtney n [Right Arm] 99 Pulse Oximetry 95 93 Oxygen Delivery Me thod Room Air Sepsis Recent Feve r Within 48 Hours Sepsis Action Take n by Nursing Physical Exam: CONSTITUTIONAL/VITAL SIGNS: Reviewed / noted above. GENERAL: Non-toxic in appearance. INTEGUMENTARY: Warm, dry, and [place]. HEAD: Normocephalic. EYES: without scleral icterus or trauma. ENT/OROPHARYNX: clear and moist. LYMPHADENOPATHY/NECK: Is supple without lymphadenopathy or meningismus. RESPIRATORY: Lungs clear and equal. Tachypneic. CARDIOVASCULAR: Regular rate and rhythm. Tachycardic. GI/ABDOMEN: Soft and nontender. No organomegaly or pulsatile mass. No rebound or guarding. Normal bowel sounds. EXTREMITIES: Warm and well perfused. Right lower extremity edema. BACK: No CVA tenderness. NEUROLOGICAL: Intact without focal deficits. PSYCHIATRIC: normal affect. MUSCULOSKELETAL: Normally developed with good muscle tone. TRIAGE NURSING DOCUMENTATION REVIEWED. Course Administered Medications Diltiazem HCl 125 mg/ Dextrose 125 mls @ 5 mls/hr IV .Q24H ROLDAN; Protocol Stop: 02/17/20 16:14 Last Titration: 01/18/20 17:45 Dose: 7.5 mg/hr, 7.5 mls/hr Documented by: [id number] Cosigned by: [id number] Admin: 01/18/20 17:20 Dose: 5 mg/hr, 5 mls/hr Documented by: [id number] Cosigned by: [id number] Ioversol (Optiray 320 125ml) 120 ml IV ONCE PRN PRN Reason: Interaction Checking Stop: 01/22/20 17:18 Last Admin: 01/18/20 17:19 Dose: 120 ml Documented by: [id number] Discontinued Medications Acetaminophen (Tylenol) 500 mg PO NOW STA Stop: 01/18/20 17:39 Last Admin: 01/18/20 18:09 Dose: 500 mg Documented by: [id number] Diltiazem HCl (Cardizem) 20 mg IV NOW STA Stop: 01/18/20 16:12 Last Admin: 01/18/20 16:35 Dose: 20 mg Documented by: [id number] Cosigned by: [id number] Sodium Chloride (Nss 1000ml) 500 mls @ 999 mls/hr IV .Q31M ONE Stop: 01/18/20 18:08 Last Admin: 01/18/20 17:50 Dose: 999 mls/hr Documented by: [id number] Miscellaneous () 1 ea N/A NOW STA Stop: 01/18/20 16:12 Last Admin: 01/18/20 17:52 Dose: 1 ea Documented by: [id number] Medical Decision Making Differential Diagnosis The differential that was considered includes acute myocardial infarction, acute coronary syndrome, myocarditis, pericarditis, pericardial effusions /tamponade, esophageal perforation, thoracic aortic dissection, pulmonary embolism, pneumonia, pneumothorax, pancreatitis, shingles, acute cholecystitis, perforated abdominal viscus. Medical Records Attestation: I reviewed the patient's medical records. Home Medications Current Medication List: was personally reviewed by me Laboratory Data Attestation: I reviewed the patient's lab results. Result diagrams: 01/18/20 16:10 01/18/20 16:10 Lab Results 01/18/20 01/18/20 01/18/20 Range/Units 16:10 16:10 16:10 WBC 12.11 H (4.8-10.8) K/uL RBC 4.55 L (4.7-6.1) M/uL Hgb 14.8 (14.0-18.0) g/dL Hct 41.9 L (42-52) % MCV 92.1 (80-100) fL MCH 32.5 (25-34) pg MCHC 35.3 (32-36) g/dL RDW Std Deviation 44.3 (36.4-46.3) fL RDW Coeff of Maksim 13.1 (11.5-14.5) % Plt Count 268 (130-400) K/uL MPV 9.9 (7.4-10.4) fL Immature Gran % (Auto) 0.4 % Neut % (Auto) 78.9 % Lymph % (Auto) 9.4 % [place] % (Auto) 10.3 % Eos % (Auto) 0.4 % Baso % (Auto) 0.6 % Immature Gran # (Auto) 0.05 H (0.00-0.02) K/uL Neut # (Auto) 9.55 H (1.4-6.5) K/uL Lymph # (Auto) 1.14 L (1.2-3.4) K/uL [place] # (Auto) 1.25 H (0.11-0.59) K/uL Eos # (Auto) 0.05 (0-0.5) K/uL Baso # (Auto) 0.07 (0-0.2) K/uL PT 12.1 H (9.0-12.0) Seconds INR 1.2 H (0.9-1.1) APTT 25.9 (21.0-31.0) Seconds PTT Ratio 0.9 D-Dimer 61375 H* (0-500) ug/L FEU Sodium 138 (136-145) mmol/L Potassium 3.8 (3.5-5.1) mmol/L Chloride 104 (98-107) mmol/L Carbon Dioxide 27 (21-32) mmol/L Anion Gap 7.0 (3-11) BUN 18 (7-18) mg/dl Creatinine 1.27 (0.6-1.4) mg/dl Est Cr Clr Drug Dosing Not Reportable Est GFR ( Amer) 69.2 Est GFR (Non-Af Amer) 59.7 BUN/Creatinine Ratio 13.8 (10-20) Glucose 133 H (70-99) mg/dl Calcium 9.1 (8.5-10.1) mg/dl Total Bilirubin 1.3 H (0.2-1) mg/dl AST 29 (15-37) U/L ALT 58 (12-78) U/L Alkaline Phosphatase 123 H (45-117) U/L Troponin I < 0.015 (0-0.045) ng/ml NT-Pro-B Natriuret Pep 1160 H (0-900) pg/ml Total Protein 8.0 (6.4-8.2) gm/dl Albumin 3.5 (3.4-5.0) gm/dl Globulin 4.5 H (2.5-4.0) gm/dl Albumin/Globulin Ratio 0.8 L (0.9-2) Imaging Data Attestation: I personally reviewed and interpreted this imaging study as follows: My Impression: Possible small right pleural effusion. No acute disease. Radiologist's Impression: Chest x-ray: IMPRESSION: 1. No acute cardiopulmonary disease. IMPRESSION: 1. Segmental and subsegmental acute pulmonary emboli throughout the right lung with minimal involvement of the left upper lobe. 2. Groundglass infiltrate in the basal segments of the right lower lobe concerning for hemorrhage or developing infarct. 3. Trace right pleural effusion is likely reactive. 4. Cardiomegaly. 5. Prominent mediastinal lymph nodes. While these may be reactive, consider follow-up scan in 3-6 months to ensure resolution. If there is known underlying malignancy or lymphoproliferative disease, these are more concerning. ECG Data Attestation: I personally reviewed and interpreted this ECG as follows: (Per my interpretation reveals atrial fib with a rate of 143. No ST elevations. No PVCs.) Blood Pressure Blood Pressure Findings: Normal blood pressure MDM Narrative This is a 65-year-old male who presents to the ED with a chief complaint of right-sided mid chest pain. The patient states that it hurts when he takes a deep breath. The symptoms started this morning. He denies any specific shortness of breath although did feel a little winded this morning. He also states that he recently has been having some joint pain. He states that his pains have been going on for about a month. He states that it was initially in his right hip and then the left hip and left knee and now just minimally in the left hip. He is unsure if this is related. He states that he had an x-ray a couple of weeks ago and is due for an EMG on Monday. The patient's breathing issues started this morning. He denies recent illness other than 6 to 8 weeks ago having the flu. He was diagnosed with influenza A. He has not had any respiratory illness symptoms in the past week. He does have a fever here of 38.3. Respiratory rate was documented at 52 with a heart rate of 92. He does seem somewhat tachypneic on exam. He is otherwise in no distress. Documented heart rate was 92 with a twelve-lead EKG shows that he is in A. fib with RVR with a heart rate of 143. Chest x-ray did not show acute disease. A CT scan of the chest reveals multiple right-sided PEs as well as infarct and hemorrhage. Minimal left upper lung PEs. The patient's vital signs today revealed a tachycardia and a fever. He was found to be in A. fib with RVR. He was also tachypneic. His lungs are clear. He was given IV Cardizem bolus with IV Cardizem drip. That did slow his heart rate down some. The patient was given IV fluids and some p.o. Tylenol for his fever. I did speak with Dr. Hermosillo with regards to the results of the CT scan and in particular the right lower lobe hemorrhage/developing infarct. He states that anticoagulation is still recommended. The patient was given subcu Lovenox. He will be seen by the hospitalist for further inpatient evaluation and care. Impression & Plan Bilateral pulmonary embolism, Fever, Embolism, pulmonary with infarction, Atrial fibrillation with RVR Critical Care Time Critical Care Time: Yes Total Critical Care Time: 40 I have personally spent 40 minutes of critical care time in the direct management of this patient. This includes bedside care, interpretation of diag nostic studies, and testing, discussion with consultants, patient, and family members, and other required patient management activities. This 40 minutes is in excess of all separately billable procedures. Discharge Plan Visit Data Chief Complaint: Shortness of Breath/Dyspnea Stated Complaint: PINCHED NERVE - LUNGS HURT - SOB ED Provider: Julius Barrios Discharge Problem: Bilateral pulmonary embolism, Fever, Embolism, pulmonary with infarction, Atrial fibrillation with RVR Patient Disposition: Being Evaluated by Hospitalist Forms Stand Alone Forms: My [facility] Prescriptions Prescriptions: No Action losartan 100 mg tablet 100 mg PO DAILY Qty: 90 RF: 3 hydrochlorothiazide 25 mg tablet 25 mg PO DAILY Qty: 90 RF: 3 multivitamin [Daily Multi-Vitamin] tablet 1 tab PO DAILY RF: 0 hydrocodone-acetaminophen 5-325 mg tablet See Rx Instructions PO Q8H PRN (Reason: pain) Qty: 60 RF: 0 gabapentin [Neurontin] 300 mg capsule 300 mg PO BID Qty: 60 RF: 2 Referrals Referrals: Walter Herr MD [Primary Care Provider] -
[2020-01-18 16:31] LABS: Basophils # (auto) 0.07 K/uL (0-0.2); Basophils % (auto) 0.6 %; Eosinophils # (auto) 0.05 K/uL (0-0.5); Eosinophils % (auto) 0.4 %; Hematocrit (blood only) 41.9 % (42-52); Hemoglobin 14.8 g/dL (14.0-18.0); Immature Granulocytes # (auto) 0.05 K/uL (0.00-0.02); Immature Granulocytes % (auto) 0.4 %; Lymphocytes # (auto) 1.14 K/uL (1.2-3.4); Lymphocytes % (auto) 9.4 %; Mean Corpuscular Hemoglobin 32.5 pg (25-34); Mean Corpuscular Hgb Conc 35.3 g/dL (32-36); Mean Corpuscular Volume 92.1 fL (80-100); Mean Platelet Volume 9.9 fL (7.4-10.4); Monocytes # (auto) 1.25 K/uL (0.11-0.59); Monocytes % (auto) 10.3 %; Neutrophils # (auto) 9.55 K/uL (1.4-6.5); Neutrophils % (auto) 78.9 %; Platelet Count 268 K/uL (130-400); RDW Coefficient of Variation 13.1 % (11.5-14.5); RDW Standard Deviation 44.3 fL (36.4-46.3); Red Blood Count 4.55 M/uL (4.7-6.1); White Blood Count 12.11 K/uL (4.8-10.8)
[2020-01-18 16:49] LABS: Alanine Aminotransferase 58 U/L (12-78); Albumin Level 3.5 gm/dl (3.4-5.0); Aspartate Aminotransferase 29 U/L (15-37); BUN Creatinine Ratio 13.8 (10-20); Blood Urea Nitrogen 18 mg/dl (7-18); Calcium 9.1 mg/dl (8.5-10.1); Carbon Dioxide 27 mmol/L (21-32); Chloride 104 mmol/L (98-107); Est GFR (African American) 69.2; Est GFR (Non-African American) 59.7; Glucose 133 mg/dl (70-99); INR 1.2 (0.9-1.1); Partial Thromboplastin Ratio 0.9; Partial Thromboplastin Time 25.9 Seconds (21.0-31.0); Potassium 3.8 mmol/L (3.5-5.1); Prothrombin Time 12.1 Seconds (9.0-12.0); Sodium 138 mmol/L (136-145)
[2020-01-18 16:50] LABS: D Dimer 14880 ug/L FEU (0-500)
[2020-01-18 16:54] LABS: Albumin Globulin Ratio 0.8 (0.9-2); Alkaline Phosphatase 123 U/L (45-117); Bilirubin,Total 1.3 mg/dl (0.2-1); Globulin 4.5 gm/dl (2.5-4.0); NT Pro B Type Natriuretic Pept 1160 pg/ml (0-900); Troponin I < 0.015 ng/ml (0-0.045)
[2020-01-18] MEDS ORDERED: OPTIRAY 320 125ml IV PRN (17:19)
[2020-01-18] MEDS: dilTIAZem HCL 125 MG in DEXTROSE 5% 100 ML IV SCH (17:20)
--- NOTE | 2020-01-18 17:28 | CT Scan Report ---
CT angio chest PE protocol CLINICAL HISTORY: 65 years-old Male presenting with atypical chest pain, shortness of breath, fever, atrial fibrillation, elevated d-dimer. TECHNIQUE: Multidetector CT angiography of the chest was performed after administration of intravenou s contrast. 3-D volumetric and/or maximum intensity projection (MIP) images were subsequently reconst ructed for review. IV contrast: 120 mL of Optiray 320. One or more dose lowering techniques were used consistent with the principles of ALARA (as low as reasonably achievable), including automatic expos ure control, mA or kV adjustment to individual patient size, and/or use of iterative reconstruction. COMPARISON: Chest x-ray performed earlier today. CT DOSE (mGy.cm): The estimated cumulative dose is 459.27 mGycm. FINDINGS: Chocolate Temperer topogram: Cholecystectomy clips. Pulmonary vasculature: The study is suboptimal for the assessment of the pulmonary vascular tree secondary to respiratory mo tion artifact. Segmental and subsegmental acute pulmonary emboli in the right lung throughout all 3 l obes. Trace subsegmental emboli are also evident in the left upper lobe. Main pulmonary artery is not enlarged. No flattening of the interventricular septum. No intracardiac filling defect. No reflux of contrast into the hepatic veins. Remaining chest: Soft tissues: Normal thyroid and thoracic inlet. Prominent right paratracheal and subcarinal lymph no radha. Index node in the right paratracheal region measures 11 mm in short axis. Atherosclerosis of the aorta. Multichamber enlargement of the heart. Coronary artery calcification. Trace right pleural eff usion. Esophagus mildly distended with gas. Lungs and airways: No pneumothorax. Mild diffuse bronchial wall thickening. Pulmonary arteries are no t significantly enlarged relative to adjacent bronchi. No interlobular septal thickening. Respiratory motion artifact degrades evaluation of lung parenchyma. Peripheral groundglass opacity at the medial basal and posterior basal right lower lobe. This is in the greatest distribution of emboli. Musculoskeletal: Degenerative changes of the spine. IMPRESSION: 1. Segmental and subsegmental acute pulmonary emboli throughout the right lung with minimal involvem ent of the left upper lobe. 2. Groundglass infiltrate in the basal segments of the right lower lobe concerning for hemorrhage or developing infarct. 3. Trace right pleural effusion is likely reactive. 4. Cardiomegaly. 5. Prominent mediastinal lymph nodes. While these may be reactive, consider follow-up scan in 3-6 mo nths to ensure resolution. If there is known underlying malignancy or lymphoproliferative disease, th león are more concerning. The report will be called/faxed according to standard departmental protocol for a critical finding. ACT 112: Negative or not required by law. Electronically signed by: Dean Valente M.D. 01/18/2020 5:27 PM
[2020-01-18] MEDS ORDERED: ACETAMINOPHEN 500 MG TAB PO STA (17:38)
[2020-01-18] MEDS ORDERED: SODIUM CHLORIDE 0.9% 1000ML 500 ML IV ONE (17:38)
[2020-01-18] MEDS ORDERED: ENOXAPARIN 1 MG/KG SQ SCH (18:00)
--- NOTE | 2020-01-18 18:06 | History & Physical Report ---
Date of Service January 18, 2020 Assessment & Plan (1) Atrial fibrillation with RVR: - Admit to tele - Trend cardiac biomarkers, initial set was negative - EKG reviewed as above - Check 2 D echo - Started on cardizem gtt, continue for now, rate still in the 120-130 while at bedside. - PT/OT consulted (2) Acute pulmonary embolism: - CTPE showing 1. Segmental and subsegmental acute pulmonary emboli throughout the right lung with minimal involvement of the left upper lobe. 2. Groundglass infiltrate in the basal segments of the right lower lobe concerning for hemorrhage or developing infarct. 3. Trace right pleural effusion is likely reactive. 4. Cardiomegaly. 5. Prominent mediastinal lymph nodes. While these may be reactive, consider follow-up scan in 3-6 months to ensure resolution. If there is known underlying malignancy or lymphoproliferative disease, these are more concerning. - Started on lovenox 1mg/kg Q12H, continue, likely can transition over to a NOAC pending insurance coverage. - Checking US Ty LE (3) Benign essential hypertension: - Hold HCTZ and losartan for now while on cardizem gtt as above. (4) BPH (benign prostatic hyperplasia): - Stable (5) Fever: -T-max equals 38.8, with acute shortness of breath and visiting multiple members of the community, will test in-house for COVID-19 - Has been taking oxycodone-acetaminophen for lower extremity and back pain so likely has had tylenol in the past few days. - (6) Low back pain radiating down leg: - Has outpatient follow-up to have EMG conducted on Monday in the [facility] - We will continue gabapentin 300 mg BID, as well as hydrocodone for pain-IV Dilaudid q4H as needed pain (7) Hypercholesterolemia: - Checking fasting lipids with am labs (8) DVT prophylaxis: - jennifer on the left leg only CODE: Full code Dispo: From home, likely to remain in the hospital x 1-2 days History of Present Illness Primary Care Provider: Walter Herr MD This is a 65 yo M with PMHx of Benign essential hypertension, BPH, Obstructive sleep apnea, umbilical hernia who presents with acute shortness of breath which started this morning. He states that he had not been himself for a few days, but that today was significantly worse. He has been out getting his groceries, going to stores and was over to visit a friend last week where he wear a mask. He reports his largest pain is in his lower back and radiates down the left leg. He reports being very sedentary over the last few weeks, and has been using a walker and a crutch to help him get around his house. His right lower extremity is more swollen than the left. He has difficulty with deep inspirations, and developed a fever today. He denies any fever sweats or chills prior to today. He admits to loss of appetite over the last few days, and vomited once this morning. Patient denies any diarrhea, constipation. Patient was found to be in A. fib with RVR with HR in the 130s upon presentation, started on lovenox, and found with multiple PEs on CT PE conducted in the ER, T-max = 38.8, with O2 sats of 93% on room air. He denies any known exposure to COVID-19 positive people, recent travel, has been wearing a mask and practicing appropriate social distancing. He typically lives at home alone, but does have a sister who visits him frequently. He has been out getting his groceries, going to stores and was over to visit a friend last night where he wore a mask but his friends did not. Allergies Allergy/AdvReac Type Severity Reaction Status Date / Time Nyuhchy-Vsa-Edx Reductase AdvReac Mild MUSCLE Verified 01/18/20 16:58 Inhibitor ACHES Home Medications Home Medications Medication Instructions Recorded Confirmed Type multivitamin 1 tab PO DAILY 06/09/19 01/18/20 History hydrochlorothiazide 25 mg tablet 25 mg PO DAILY #90 tab 09/30/19 01/18/20 Rx losartan 100 mg tablet 100 mg PO DAILY #90 tab 09/30/19 01/18/20 Rx gabapentin 300 mg capsule 300 mg PO BID #60 cap 12/23/19 01/18/20 Rx hydrocodone 5 mg-acetaminophen 325 See Rx Instructions PO Q8H PRN #60 12/30/19 01/18/20 Rx mg tablet tab Past Med/Surg History Medical History Benign essential hypertension BPH (benign prostatic hyperplasia) Obstructive sleep apnea Umbilical hernia Surgical History History of cholecystectomy History of incisional hernia repair (Inactive) Family History Mother Breast cancer Hypertension Father COPD (chronic obstructive pulmonary disease) Grandmother (Maternal) Cancer Grandfather Stroke Denies family history of Rheumatoid arthritis Sudden SIDS (sudden infant syndrome) Ovarian cancer Prostate cancer Diabetes Deep vein thrombosis Osteoporosis Coronary heart disease Dyslipidemia Cerebral aneurysm Alzheimer disease Bipolar disorder Clotting disorder Crohn's disease Dementia Depression Heart disease Kidney disease Myocardial infarction Osteoarthritis Schizophrenia Congenital kidney disease Gestational diabetes Lung cancer Colorectal cancer Pulmonary embolism Lung disease Ulcerative colitis Colonic polyp Asthma Cystic kidney disease Social History Preferred Language: Libyan Communication Ability: Effective Visual Impairment: No Limitations 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: No Beliefs That Will Affect Care: None marital status: Single Current Living Situation: Alone current occupational status: employed current occupation: [employer] Other Information That Helps Us Care for You: No Feels Safe at Home: Yes Safety Concerns: Feels Safe At This Time Smoking Status: Never smoker Do You Dip or Chew Tobacco: No ; Second Hand Exposure: No ; Tobacco Cessation Education Requested by Patient: No Hx Alcohol Use: Yes Alcohol type: beer Alcohol Intake Frequency: Holidays/Special Occasions Hx Substance Use: No Childhood Exposure to Second-Hand Smoke: Yes caffeine: Yes Dental Care, Regularly: Yes Physical Activity Frequency: Does not Exercise Seatbelt Use: sometimes Sunscreen Use: No Review of Systems Review of Systems: Constitutional: No fever, sweats or chills Eyes: No diplopia, no worsening or blurred vision ENT: normal hearing, no trouble swallowing Respiratory: As per HPI. No cough, sputum, + FLORES Cardiovascular: No chest pain, tightness or palpitations Abdomen: No pain, + episode of nausea and vomiting today, no diarrhea or constipation Musculoskeletal: No joint pain, calf pain, swelling Neurologic: No weakness, numbness/tingling, or balance problems Psychiatric: No anxiety or depression Skin: No rash or itch Physical Exam Physical Exam: General: awake, alert, no apparent distress Head: Normocephalic, atraumatic ENT: PERRL, EOMI, no pharyngeal exudate, mucous membranes moist Chest: Clear to auscultation, on room air, no adventitious breath sounds Cardiac: Regular rate and rhythm, no murmur, no JVD, normal peripheral pulses, good capillary refill Abdominal: NABS x 4 quadrants, soft, nontender to palpation, no rebound, guarding or tenderness Extremities: Normal inspection, no peripheral edema or erythema, calfs nontender to palpation Psych: Normal mood and affect Neuro: AAO x 3, strength intact bilaterally and related 5/5, no motor deficits, speech is clear, no peripheral sensory deficits Results & Data Results & Data ([facility]) Vital Signs (Past 12 Hours) Vital Signs Temp Pulse Pulse Resp BP BP Pulse Ox 01/18/20 17:45 127 H 28 H 128/85 93 01/18/20 17:30 117 H 40 H 122/84 95 01/18/20 17:23 38.8 C H 01/18/20 17:21 131 H 34 H 143/81 H 94 01/18/20 17:01 123 H 124 H 29 H 129/69 129/69 94 01/18/20 16:46 119 H 42 H 118/82 94 01/18/20 16:30 135 H 42 H 142/87 H 94 01/18/20 16:16 93 01/18/20 16:15 152 H 34 H 125/92 93 01/18/20 16:13 139 H 38 H 130/79 94 01/18/20 15:18 38.3 C H 92 H 52 H 115/[address] angio chest PE protocol CLINICAL HISTORY: 65 years-old Male presenting with atypical chest pain, shortness of breath, fever, atrial fibrillation, elevated d-dimer. TECHNIQUE: Multidetector CT angiography of the chest was performed after administration of intravenous contrast. 3-D volumetric and/or maximum intensity projection (MIP) images were subsequently reconstructed for review. IV contrast: 120 mL of Optiray 320. One or more dose lowering techniques were used consistent with the principles of ALARA (as low as reasonably achievable), including automatic exposure control, mA or kV adjustment to individual patient size, and/or use of iterative reconstruction. COMPARISON: Chest x-ray performed earlier today. CT DOSE (mGy.cm): The estimated cumulative dose is 459.27 mGycm. FINDINGS: Emergency Medicine Medical Director topogram: Cholecystectomy clips. Pulmonary vasculature: The study is suboptimal for the assessment of the pulmonary vascular tree secondary to respiratory motion artifact. Segmental and subsegmental acute pulmonary emboli in the right lung throughout all 3 lobes. Trace subsegmental emboli are also evident in the left upper lobe. Main pulmonary artery is not enlarged. No flattening of the interventricular septum. No intracardiac filling defect. No reflux of contrast into the hepatic veins. Remaining chest: Soft tissues: Normal thyroid and thoracic inlet. Prominent right paratracheal and subcarinal lymph nodes. Index node in the right paratracheal region measures 11 mm in short axis. Atherosclerosis of the aorta. Multichamber enlargement of the heart. Coronary artery calcification. Trace right pleural effusion. Esophagus mildly distended with gas. Lungs and airways: No pneumothorax. Mild diffuse bronchial wall thickening. P ulmonary arteries are not significantly enlarged relative to adjacent bronchi. No interlobular septal thickening. Respiratory motion artifact degrades evaluation of lung parenchyma. Peripheral groundglass opacity at the medial basal and posterior basal right lower lobe. This is in the greatest distribution of emboli. Musculoskeletal: Degenerative changes of the spine. IMPRESSION: 1. Segmental and subsegmental acute pulmonary emboli throughout the right lung with minimal involvement of the left upper lobe. 2. Groundglass infiltrate in the basal segments of the right lower lobe concerning for hemorrhage or developing infarct. 3. Trace right pleural effusion is likely reactive. 4. Cardiomegaly. 5. Prominent mediastinal lymph nodes. While these may be reactive, consider follow-up scan in 3-6 months to ensure resolution. If there is known underlying malignancy or lymphoproliferative disease, these are more concerning. The report will be called/faxed according to standard departmental protocol for a critical finding. ECG Additional Comments: 18-JAN-2020 15:55:07 [facility]-EDSTAT ROUTINE RETRIEVAL Atrial fibrillation with rapid ventricular response Inferior infarct , age undetermined Abnormal ECG When compared with ECG of 14-NOV-2017 10:27, Atrial fibrillation has replaced Sinus rhythm Vent. rate has increased BY [address] now depressed in Anterior leads T wave inversion now evident in Anterior leads 25mm/s 10mm/mV 150Hz 9.0.9 12SL 241 LAW: 15 Referred by: REFERRED SELF Unconfirmed Vent. rate 143 BPM MI interval * ms QRS duration 74 ms QT/QTc 312/481 ms P-R-T axes * 4 -2 Supervising Physician Co-Signing Physician Notes Attending Attestation and Admission Note: Pt seen/examined, chart reviewed, admission care plan d/w NATE Tuttle. I agree w/ the dunham components of her admission documentation. 65yo male with h/o HTN and GT on CPAP who presents with feeling unwell for several days but awakening this am with pleuritic chest pain on the right side as well as significant shortness of breath. Upon arrival to [facility] he was febrile, tachycardic, and tachypneic. He denied fevers/chills/cough at home over the past week. He notes that since early December he has been battling what sounds like lumbar back pain with radicular symptoms in the left leg. This has caused him to miss work and become more sedentary. Denies recent travel. CTA chest in the ER shows extensive right-sided PEs and KAY PEs along with question of early pulmonary infarction in the RLL. Given 100mg of SC Lovenox in the ER. Tele in the ER c/w rapid a.fib. 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 extensive b/l PEs 2. suspected RLE DVT - awaiting doppler 3. new-onset a.fib - suspect 2nd to #1 4. fever - r/o COVID-19, but suspect 2nd to #1, #2 5. possible RLL pulmonary infarct 6. HTN 7. lumbar back pain with radicular symptoms LLE agree w/ lovenox 1mg/kg BID agree w/ cardizem infusion for a.fib rate control COVID-19 testing CPAP for GT if COVID PCR negative echo in light of PEs and a.fib telemetry dopplers legs suspect VTE is 2nd to significant immobility x 4-6 weeks, but should undergo routine cancer screenings as outpatient post-d/c will need PT/OT while here Abiodun Hough MD PG Care Time/CCT Total # of Minutes Spent Total Time Spent with Patient: Total time spent is greater than 50% in coordination of care (as documented) at patient's floor/unit and/or counseling patient: Coding Level of Care Code 50977 Initial Inpt Care Lvl 3 Diagnoses Atrial fibrillation with RVR I48.91 Acute pulmonary embolism I26.99 Benign essential hypertension I10 BPH (benign prostatic hyperplasia) N40.0 Fever R50.9 Low back pain radiating down leg M54.5 Hypercholesterolemia E78.00 DVT prophylaxis Z29.9
[2020-01-18] MEDS ORDERED: ONDANSETRON INJ 2 MG/ML 2 ML VIAL IV PRN (18:07)
[2020-01-18] MEDS ORDERED: ACETAMINOPHEN 325 MG TAB PO PRN (18:07)
[2020-01-18] MEDS ORDERED: ENOXAPARIN 100 MG/1ML SYR SQ ONE (18:15)
[2020-01-18 18:19] LABS: Appearance Urine Clear (Clear); Bacteria Urine Automated Negative (Negative); Bilirubin Urine Negative (Negative); Blood Urine Trace (Negative); Color Urine Dark Yellow; Glucose Urine UA Negative (Negative); Ketones Urine Negative (Negative); Leukocyte Esterase Urine Negative (Negative); Nitrite Urine Negative (Negative); Protein Urine Trace (Negative); RBC Urine Automated 0-4 /hpf (0-4); Specific Gravity Urine > 1.045 (1.000-1.030); Urobilinogen Urine Negative (Negative)
[2020-01-18] MEDS ORDERED: HYDROmorphone INJ 0.5 MG/0.5 ML SYR IV PRN (19:35)
--- NOTE | 2020-01-18 20:39 | Ultrasound Report ---
US venous doppler LE CLINICAL HISTORY: 65 years-old Male presenting with pulmonary emboli, leg pain, evaluate for DVT. TECHNIQUE: Real-time grayscale and color and spectral Doppler ultrasound imaging of the veins of the bilateral lower extremities was performed. Compression and augmentation were also utilized. COMPARISON: None. FINDINGS: RIGHT: Common femoral vein: Patent. Greater saphenous vein (superficial): Patent. Deep femoral vein: Patent. Femoral vein: Nearly occlusive filling defect consistent with thrombus in the distal portion. The pro ximal to mid portions are patent. Popliteal vein: Nearly occlusive filling defect consistent with thrombus. Calf veins: Thrombus evident in all 3 calf veins. LEFT: Common femoral vein: Patent. Greater saphenous vein (superficial): Patent. Deep femoral vein: Patent. Femoral vein: Patent. Popliteal vein: Patent. Calf veins: Patent. Other: None. IMPRESSION: 1. Extensive deep venous thrombosis in the right lower extremity extending superiorly to the distal superficial femoral vein. This is largely nearly occlusive and acute appearing. 2. No evidence of deep venous thrombosis in the left lower extremity. The report will be called/faxed according to standard departmental protocol for a critical finding. ACT 112: Negative or not required by law. Electronically signed by: Dean Valente M.D. 01/18/2020 8:37 PM
[2020-01-18] MEDS: GABAPENTIN 300 MG CAP PO SCH (22:37)
[2020-01-18] MEDS: HYDROCODONE/ACETAMOPHEN 5/325MG TAB PO PRN (23:03)
[2020-01-19] MEDS: dilTIAZem HCL 125 MG in DEXTROSE 5% 100 ML IV SCH ×4 (03:53→16:10)
[2020-01-19] MEDS: HYDROCODONE/ACETAMOPHEN 5/325MG TAB PO PRN (04:15)
[2020-01-19 06:02] LABS: Hematocrit (blood only) 38.2 % (42-52); Hemoglobin 13.1 g/dL (14.0-18.0); Mean Corpuscular Hemoglobin 32.1 pg (25-34); Mean Corpuscular Hgb Conc 34.3 g/dL (32-36); Mean Corpuscular Volume 93.6 fL (80-100); Mean Platelet Volume 9.7 fL (7.4-10.4); Platelet Count 252 K/uL (130-400); RDW Coefficient of Variation 13.2 % (11.5-14.5); RDW Standard Deviation 45.3 fL (36.4-46.3); Red Blood Count 4.08 M/uL (4.7-6.1); White Blood Count 13.46 K/uL (4.8-10.8)
[2020-01-19 06:35] LABS: Alanine Aminotransferase 46 U/L (12-78); Albumin Level 2.9 gm/dl (3.4-5.0); Aspartate Aminotransferase 20 U/L (15-37); BUN Creatinine Ratio 20.3 (10-20); Blood Urea Nitrogen 21 mg/dl (7-18); Calcium 8.7 mg/dl (8.5-10.1); Carbon Dioxide 23 mmol/L (21-32); Chloride 103 mmol/L (98-107); Cholesterol 199 mg/dl (0-200); Creatinine Clr Calc Pharmacy 86.6 ml/min; Est GFR (African American) 90.2; Est GFR (Non-African American) 77.9; Glucose 118 mg/dl (70-99); Potassium 3.6 mmol/L (3.5-5.1); Sodium 134 mmol/L (136-145); Triglycerides 142 mg/dl (0-150); VLDL Cholesterol 28 mg/dl
[2020-01-19 06:40] LABS: Albumin Globulin Ratio 0.7 (0.9-2); Alkaline Phosphatase 108 U/L (45-117); Bilirubin,Total 1.4 mg/dl (0.2-1); Chol HDL Ratio 5; Globulin 3.9 gm/dl (2.5-4.0); HDL Cholesterol 40 mg/dl; LDL Cholesterol Calculated 131 mg/dl; Total Protein 6.8 gm/dl (6.4-8.2); Troponin I < 0.015 ng/ml (0-0.045)
[2020-01-19] MEDS: LOSARTAN POTASSIUM 50 MG TAB PO SCH (08:10)
[2020-01-19] MEDS: GABAPENTIN 300 MG CAP PO SCH (08:10)
[2020-01-19] MEDS: ENOXAPARIN 100 MG/1ML SYR SQ SCH ×2 (08:21→20:11)
[2020-01-19] MEDS ORDERED: hydroCHLOROthiazide 25 MG TAB PO SCH (09:00)
[2020-01-19] MEDS ORDERED: HYDROCODONE/ACETAMOPHEN 5/325MG TAB PO PRN (16:10)
--- NOTE | 2020-01-19 16:50 | XCELERA ---
[id number]
--- NOTE | 2020-01-19 17:47 | Hospitalist Progress Note ---
Date of Service January 19, 2020 Assessment & Plan (1) Acute respiratory failure with hypoxia: 2nd to b/l PEs and likely RLL pulmonary infarction. o2 support. Systemic anticoagulation. Pain control for pleurisy from pulmonary infarct. Incentive spirometry. (2) Acute pulmonary embolism: b/l PEs with extensive RLE DVT. No prior h/o VTE. Risk factor - significant immobility dating back to early December. Lumbar back pain with LLE radiculopathy led to severe immobility and sedentary lifestyle. Patient stopped working full-time. Would still recommend routine cancer screenings after his hospitalization. No family h/o VTE - defer on genetic testing. echo with intact RV function. trops negative. BPs wnl. cont lovenox 1mg/kg BID. can likely transition to eliquis BID tomorrow. social work did pharmacy check - will cost $10/month. plan - at least 6 months of Rx but may need longer given extent of RLE DVT. (3) Pulmonary infarction: RLL. This is cause of his pain. Treat pain symptoms. Treat PEs w/ anticoagulation. Incentive spirometry. O2 support. (4) DVT (deep venous thrombosis): Extensive, RLE. see doppler report. LLE is negative. Lovenox 1mg/kg BID, then transition to eliquis BID perhaps tomorrow. see discussion above. (5) Atrial fibrillation with RVR: Uncertain when he converted to this but very well this may be due to acute PEs. Cont cardizem infusion and if rates tomorrow are controlled transition to PO cardizem CD. TSH wnl. K/mag wnl. Echo with mildly dilated LA. LV function and valves wnl. Will need anticoagulation (eliquis). (6) Benign essential hypertension: Hold ARB and HCTZ to allow more room with BP for titration of cardizem. (7) BPH (benign prostatic hyperplasia): no issues not on meds (8) Obstructive sleep apnea: cont CPAP at HS (9) Fever: COVID-19 negative. Likely that fevers are due to DVT with PEs. Doubt that RLL infiltrates on chest CT are pneumonia; this is more likely pulmonary infarction. No cough, eating ok, etc. Blood cx's thus far negative. (10) Left lumbar radiculopathy: Increase gabapentin to 400mg BID. Needs outpatient MRI to characterize extent of DJD, herniated discs, etc. Lumbar spine x-rays from 12/2019 showed mild DJD. [place] prn. (11) Pulmonary HTN: suspect due to GT cont CPAP needs PT/OT jarod Admission and Anticipated Discharge Date Admission Date: January 18, 2020 Subjective patient states he is "a bit better today". breathing is more comfortable. no cough. but ongoing pleuritic chest pain on the right side. wore his CPAP all night after COVID testing was negative. HRs (a.fib) remain >100 on 10mg/hr of cardizem. appetite is ok. no abdominal pain. back pain and left leg pain remain similar to prior. patient states following his back injury in December he was spending most days on the cough, in the chair, or in bed with very little activity. no recent surgery, no recent prolonged travel, no family h/o VTE. Review of Systems Constitutional: + fever; no chills Respiratory: no cough and no hemoptysis Cardiovascular: as per Subjective / HPI and + chest pain; no palpitations Gastrointestinal: no abdominal pain, no nausea and no vomiting Physical Exam Constitutional: + obese; no acute distress breathing looks much more comfortable today than yesterday ENMT: external ear and nose normal, oropharynx normal Respiratory: no respiratory distress, no retractions and not tachypneic Auscultation: + crackles (dense, right base; o/w CTA b/l); no wheezes Cardiovascular: Rate/Rhythm: + tachycardic and + irregularly irregular Heart Sounds: normal S1 and normal S2; no murmur Vessels: posterior tibial pulses present and dorsalis pedis pulses present; no JVD Extremities: + edema (right thigh and right lower leg - no change from 01/17; no edema LLE) Gastrointestinal (Abdomen): normal bowel sounds, soft, nontender, no hepatosplenomegaly Musculoskeletal: right leg mildly warm to touch; varicosities right thigh Psychiatric: Orientation: alert and oriented x 3 Results & Data Results & Data ([facility]) Vital Signs (Past 12 Hours) Vital Signs Temp Pulse Resp BP Pulse Ox Pulse Ox 01/19/20 15:44 37.6 C H 89 20 126/72 87 L 01/19/20 10:49 37.4 C 91 H 22 109/65 95 01/19/20 08:00 95 01/19/20 07:00 37.0 C 105 H 18 142/89 H 91 Laboratory Results Laboratory Results - last 24 hr 01/18/20 01/18/20 01/18/20 18:00 19:38 22:05 WBC RBC Hgb Hct MCV MCH MCHC RDW Std Deviation RDW Coeff of Maksim Plt Count MPV Sodium Potassium Chloride Carbon Dioxide Anion Gap BUN Creatinine Est Cr Clr Drug Dosing Est GFR ( Amer) Est GFR (Non-Af Amer) BUN/Creatinine Ratio Glucose Estimat Average Glucose Hemoglobin A1c Calcium Total Bilirubin AST ALT Alkaline Phosphatase Troponin I < 0.015 Total Protein Albumin Globulin Albumin/Globulin Ratio Triglycerides Cholesterol LDL Cholesterol, Calc VLDL Cholesterol, Calc HDL Cholesterol Cholesterol/HDL Ratio TSH Urine Color Dark Yellow Urine Appearance Clear Urine pH 6.0 Ur Specific [place] > 1.045 H Urine Protein Trace H Urine Glucose (UA) Negative Urine Ketones Negative Urine Blood Trace H Urine Nitrite Negative Urine Bilirubin Negative Urine Urobilinogen Negative Ur Leukocyte Esterase Negative Urine WBC (Auto) 1-5 Urine RBC (Auto) 0-4 U Hyaline Cast (Auto) 5-10 H U Epithel Cells (Auto) 10-20 H Urine Bacteria (Auto) Negative COVID-19 PCR NEGATIVE 01/19/20 01/19/20 01/19/20 05:41 05:41 05:41 WBC 13.46 H RBC 4.08 L Hgb 13.1 L Hct 38.2 L MCV 93.6 MCH 32.1 MCHC 34.3 RDW Std Deviation 45.3 RDW Coeff of Maksim 13.2 Plt Count 252 MPV 9.7 Sodium 134 L Potassium 3.6 Chloride 103 Carbon Dioxide 23 Anion Gap 9.0 BUN 21 H Creatinine 1.02 Est Cr Clr Drug Dosing 86.6 Est GFR ( Amer) 90.2 Est GFR (Non-Af Amer) 77.9 BUN/Creatinine Ratio 20.3 H Glucose 118 H Estimat Average Glucose Pending Hemoglobin A1c Pending Calcium 8.7 Total Bilirubin 1.4 H AST 20 ALT 46 Alkaline Phosphatase 108 Troponin I < 0.015 Total Protein 6.8 Albumin 2.9 L Globulin 3.9 Albumin/Globulin Ratio 0.7 L Triglycerides 142 Cholesterol 199 LDL Cholesterol, Calc 131 VLDL Cholesterol, Calc 28 HDL Cholesterol 40 Cholesterol/HDL Ratio 5 TSH Urine Color Urine Appearance Urine pH Ur Specific [place] Urine Protein Urine Glucose (UA) Urine Ketones Urine Blood Urine Nitrite Urine Bilirubin Urine Urobilinogen Ur Leukocyte Esterase Urine WBC (Auto) Urine RBC (Auto) U Hyaline Cast (Auto) U Epithel Cells (Auto) Urine Bacteria (Auto) COVID-19 PCR 01/19/20 05:41 WBC RBC Hgb Hct MCV MCH MCHC RDW Std Deviation RDW Coeff of Maksim Plt Count MPV Sodium Potassium Chloride Carbon Dioxide Anion Gap BUN Creatinine Est Cr Clr Drug Dosing Est GFR ( Amer) Est GFR (Non-Af Amer) BUN/Creatinine Ratio Glucose Estimat Average Glucose Hemoglobin A1c Calcium Total Bilirubin AST ALT Alkaline Phosphatase Troponin I Total Protein Albumin Globulin Albumin/Globulin Ratio Triglycerides Cholesterol LDL Cholesterol, Calc VLDL Cholesterol, Calc HDL Cholesterol Cholesterol/HDL Ratio TSH 2.370 Urine Color Urine Appearance Urine pH Ur Specific [place] Urine Protein Urine Glucose (UA) Urine Ketones Urine Blood Urine Nitrite Urine Bilirubin Urine Urobilinogen Ur Leukocyte Esterase Urine WBC (Auto) Urine RBC (Auto) U Hyaline Cast (Auto) U Epithel Cells (Auto) Urine Bacteria (Auto) COVID-19 PCR Diagnostic Findings echo - normal RV and LV function; mild pulm HTN dopplers b/l LEs - extensive DVT right leg PG Care Time/CCT Total # of Minutes Spent Total Time Spent with Patient: Total time spent is greater than 50% in coordination of care (as documented) at patient's floor/unit and/or counseling patient: Coding Level of Care Code 48986 Subseq Hosp Care Lvl 3 Diagnoses Acute respiratory failure with hypoxia J96.01 Acute pulmonary embolism I26.99 Pulmonary embolism type: unspecified Acute cor pulmonale presence: without acute cor pulmonale Pulmonary infarction I26.99 DVT (deep venous thrombosis) I82.401 DVT location: lower extremity Affected thrombotic vein of extremity: unspecified vein of extremity Chronicity: acute Laterality: right Atrial fibrillation with RVR I48.91 Benign essential hypertension I10 BPH (benign prostatic hyperplasia) N40.0 Lower urinary tract symptom presence: symptoms absent Obstructive sleep apnea G47.33 Fever R50.9 Fever type: unspecified Left lumbar radiculopathy M54.16 Pulmonary HTN I27.20 (1) Acute pulmonary embolism Pulmonary embolism type: unspecified Acute cor pulmonale presence: without acute cor pulmonale Qualified Code(s): I26.99 - Other pulmonary embolism without acute cor pulmonale (2) BPH (benign prostatic hyperplasia) Lower urinary tract symptom presence: symptoms absent Qualified Code(s): N40.0 - Benign prostatic hyperplasia without lower urinary tract symptoms (3) Fever Fever type: unspecified Qualified Code(s): R50.9 - Fever, unspecified (4) DVT (deep venous thrombosis) DVT location: lower extremity Affected thrombotic vein of extremity: unspecified vein of extremity Chronicity: acute Laterality: right Qualified Code(s): I82.401 - Acute embolism and thrombosis of unspecified deep veins of right lower extremity
[2020-01-19] MEDS: GABAPENTIN 400 MG CAP PO SCH (20:10)
--- NOTE | 2020-01-19 22:49 | Electrocardiogram Report ---
Test Reason : Blood Pressure : / mmHG Vent. Rate : 143 BPM Atrial Rate : 150 BPM P-R Int : 000 ms QRS Dur : 074 ms QT Int : 312 ms P-R-T Axes : 000 004 -02 degrees QTc Int : 481 ms Atrial fibrillation with rapid ventricular response Inferior infarct , age undetermined Nonspecific ST and T wave abnormality Abnormal ECG When compared with ECG of 14-NOV-2017 10:27, Atrial fibrillation has replaced Sinus rhythm Vent. rate has increased BY [address] now depressed in Anterior leads Confirmed by Davy Zamora ([id number]) on 01/19/2020 10:49:18 PM Referred By: REFERRED SELF Confirmed By:Davy Zamora
[2020-01-20] MEDS: dilTIAZem HCL 125 MG in DEXTROSE 5% 100 ML IV SCH (03:28)
[2020-01-20 05:51] LABS: Estimated Average Glucose 123 mg/dl; Hemoglobin A1C 5.9 % (4.5-5.6)
[2020-01-20 06:09] LABS: Hematocrit (blood only) 36.8 % (42-52); Hemoglobin 12.4 g/dL (14.0-18.0); Mean Corpuscular Hemoglobin 31.5 pg (25-34); Mean Corpuscular Hgb Conc 33.7 g/dL (32-36); Mean Corpuscular Volume 93.4 fL (80-100); Mean Platelet Volume 9.6 fL (7.4-10.4); Platelet Count 289 K/uL (130-400); RDW Standard Deviation 44.7 fL (36.4-46.3); Red Blood Count 3.94 M/uL (4.7-6.1); White Blood Count 12.09 K/uL (4.8-10.8)
[2020-01-20 06:38] LABS: Albumin Level 2.7 gm/dl (3.4-5.0); BUN Creatinine Ratio 21.8 (10-20); Creatinine Clr Calc Pharmacy 80.3 ml/min; Est GFR (African American) 82.4; Est GFR (Non-African American) 71.1
[2020-01-20 06:47] LABS: Albumin Globulin Ratio 0.7 (0.9-2); Bilirubin,Total 0.9 mg/dl (0.2-1); Total Protein 6.7 gm/dl (6.4-8.2)
[2020-01-20] MEDS: GABAPENTIN 400 MG CAP PO SCH ×2 (07:51→20:46)
[2020-01-20] MEDS: LOSARTAN POTASSIUM 50 MG TAB PO SCH (07:51)
[2020-01-20] MEDS: ENOXAPARIN 100 MG/1ML SYR SQ SCH (07:52)
[2020-01-20] MEDS: dilTIAZem HCL 240 MG CAPCR PO SCH (10:22)
--- NOTE | 2020-01-20 17:00 | Hospitalist Progress Note ---
Date of Service January 20, 2020 Assessment & Plan (1) Acute respiratory failure with hypoxia: 2nd to b/l PEs and likely RLL pulmonary infarction. o2 support. Systemic anticoagulation. Pain control for pleurisy from pulmonary infarct. Incentive spirometry. saturations 99% on room air encourage patient to be OOB as much as possible, ambulate when he can (2) Acute pulmonary embolism: b/l PEs with extensive RLE DVT. No prior h/o VTE. Risk factor - significant immobility dating back to early December. Lumbar back pain with LLE radiculopathy led to severe immobility and sedentary lifestyle. Patient stopped working full-time. Would still recommend routine cancer screenings after his hospitalization. No family h/o VTE - defer on genetic testing. echo with intact RV function. trops negative. BPs wnl. treated with lovenox 1mg/kg BID. start Eliquis 10mg BID this evening, will be on 10mg BID x 7 days then 5mg BID social work did pharmacy check - will cost $10/month. plan - at least 6 months of Rx but may need longer given extent of RLE DVT. (3) Pulmonary infarction: RLL. This is cause of his pain. Treat pain symptoms. Treat PEs w/ anticoagulation. Incentive spirometry. O2 support. pain well controlled today (4) DVT (deep venous thrombosis): Extensive, RLE. see doppler report. LLE is negative. Lovenox 1mg/kg BID, then transition to eliquis BID tonight see discussion above. (5) Atrial fibrillation with RVR: Uncertain when he converted to this but very well this may be due to acute PEs. treated with cardizem infusion change to Cardizem CD 240mg qAM this morning, rates are controlled TSH wnl. K/mag wnl. Echo with mildly dilated LA. LV function and valves wnl. Will need anticoagulation (eliquis). (6) Benign essential hypertension: Hold ARB and HCTZ to allow more room with BP for titration of cardizem. likely will not resume the above if he continues on Cardizem (7) BPH (benign prostatic hyperplasia): no issues not on meds (8) Obstructive sleep apnea: cont CPAP at HS (9) Fever: COVID-19 negative. Likely that fevers are due to DVT with PEs. Doubt that RLL infiltrates on chest CT are pneumonia; this is more likely pulmonary infarction. No cough, eating ok, etc. Blood cx's thus far negative. (10) Left lumbar radiculopathy: Increase gabapentin to 400mg BID. Needs outpatient MRI to characterize extent of DJD, herniated discs, etc. Lumbar spine x-rays from 12/2019 showed mild DJD. [place] prn. (11) Pulmonary HTN: suspect due to GT cont CPAP needs PT/OT evals Admission and Anticipated Discharge Date Admission Date: January 18, 2020 Anticipated date of discharge: 01/22/20 Subjective patient doing okay, experiencing some chest pain on right side intermittently he admits that he has been laying in bed a lot encouraged him to be OOB in chair for lunch and rest of the afternoon encouraged him to walk with assistance, want his lungs to stay expanded discussed changed to Diltiazem PO, 240mg this morning changing to oral anticoagulation this evening patient eating well, urinating well, it has been a few days since last BM but not distended Review of Systems Review of Systems: All systems reviewed & are unremarkable except as noted in HPI & below Respiratory: no cough Cardiovascular: + chest pain (right sided), + chest pain with activity and + dyspnea on exertion; no palpitations and no edema Physical Exam Constitutional: WD/WN, vitals as above + overweight Eyes: PERRL, conjunctivae normal, anicteric sclerae ENMT: external ear and nose normal, oropharynx normal Neck: trachea midline, no thyromegaly Respiratory: normal respiratory effort, lungs clear to auscultation Cardiovascular: Rate/Rhythm: + tachycardic and + irregularly irregular Heart Sounds: normal S1 and normal S2; no murmur Vessels: no JVD Extremities: normal capillary refill; no edema Gastrointestinal (Abdomen): normal bowel sounds, soft, nontender, no hepatosplenomegaly Musculoskeletal: no cyanosis or clubbing, extremities motor strength 5/5 Skin: no rashes, warm and dry Neurologic: patellar DTR's 2+ bilat, sensation intact and PERRL, EOMI, accommodation nl, no face palsy, no dysarthria Psychiatric: A+Ox3, euthymic affect Lymphatic: no cervical or axillary lymphadenopathy Results & Data Results & Data ([facility]) Vital Signs (Past 12 Hours) Vital Signs Temp Pulse Pulse Resp BP BP Pulse Ox 01/20/20 16:00 01/20/20 15:12 36.7 C 58 L 20 132/64 92 01/20/20 11:17 37.3 C 93 H 22 101/66 91 01/20/20 08:53 102 H 01/20/20 08:04 36.7 C 109 H 22 108/69 96 01/20/20 08:00 Pulse Ox 01/20/20 16:00 99 01/20/20 15:12 01/20/20 11:17 01/20/20 08:53 01/20/20 08:04 01/20/20 08:00 96 Laboratory Results Laboratory Results - last 24 hr 01/19/20 01/19/20 01/20/20 05:41 05:41 05:44 WBC 12.09 H RBC 3.94 L Hgb 12.4 L Hct 36.8 L MCV 93.4 MCH 31.5 MCHC 33.7 RDW Std Deviation 44.7 RDW Coeff of Maksim 13.0 Plt Count 289 MPV 9.6 Sodium 134 L Potassium 3.6 Chloride 103 Carbon Dioxide 23 Anion Gap 9.0 BUN 21 H Creatinine 1.02 Est Cr Clr Drug Dosing 86.6 Est GFR ( Amer) 90.2 Est GFR (Non-Af Amer) 77.9 BUN/Creatinine Ratio 20.3 H Glucose 118 H Estimat Average Glucose 123 Hemoglobin A1c 5.9 H Calcium 8.7 Total Bilirubin 1.4 H AST 20 ALT 46 Alkaline Phosphatase 108 Troponin I < 0.015 Total Protein 6.8 Albumin 2.9 L Globulin 3.9 Albumin/Globulin Ratio 0.7 L Triglycerides 142 Cholesterol 199 LDL Cholesterol, Calc 131 VLDL Cholesterol, Calc 28 HDL Cholesterol 40 Cholesterol/HDL Ratio 5 01/20/20 05:44 WBC RBC Hgb Hct MCV MCH MCHC RDW Std Deviation RDW Coeff of Maksim Plt Count MPV Sodium 136 Potassium 4.0 Chloride 102 Carbon Dioxide 26 Anion Gap 7.0 BUN 24 H Creatinine 1.10 Est Cr Clr Drug Dosing 80.3 Est GFR ( Amer) 82.4 Est GFR (Non-Af Amer) 71.1 BUN/Creatinine Ratio 21.8 H Glucose 98 Estimat Average Glucose Hemoglobin A1c Calcium 9.0 Total Bilirubin 0.9 D AST 13 L ALT 34 Alkaline Phosphatase 109 Troponin I Total Protein 6.7 Albumin 2.7 L Globulin 4.0 Albumin/Globulin Ratio 0.7 L Triglycerides Cholesterol LDL Cholesterol, Calc VLDL Cholesterol, Calc HDL Cholesterol Cholesterol/HDL Ratio Medications Administered Current Inpatient Medications Acetaminophen (Tylenol) 650 mg PO Q4H PRN PRN Reason: Moderate Pain Stop: 02/17/20 18:06 Last Admin: 01/19/20 19:04 Dose: 650 mg Documented by: Hydrocodone Bitart/Acetaminophen ([place] 5/325) 1 tab PO Q4H PRN PRN Reason: Pain Stop: 02/01/20 21:45 Apixaban (Eliquis) 10 mg PO BID ROLDAN Stop: 02/19/20 20:59 Diltiazem HCl (Cardizem Cd) 240 mg PO QAM ROLDAN Stop: 02/19/20 08:59 Last Admin: 01/20/20 10:22 Dose: 240 mg Documented by: Gabapentin (Neurontin) 400 mg PO BID [facility] Stop: 02/18/20 20:59 Last Admin: 01/20/20 07:51 Dose: 400 mg Documented by: Hydrochlorothiazide (Hctz) 25 mg PO DAILY [facility] Stop: 02/18/20 08:59 Hydromorphone HCl (Dilaudid) 0.5 mg IV Q4H PRN PRN Reason: Pain Stop: 02/01/20 19:34 Last Admin: 01/19/20 08:15 Dose: 0.5 mg Documented by: Losartan Potassium (Cozaar) 100 mg PO DAILY [facility] Stop: 02/18/20 08:59 Last Admin: 01/20/20 07:51 Dose: 100 mg Documented by: Ondansetron HCl (Zofran) 4 mg IV Q4H PRN PRN Reason: Nausea And Vomiting Stop: 02/17/20 18:06 PG Care Time/CCT Total # of Minutes Spent Total Time Spent with Patient: Total time spent is greater than 50% in coordination of care (as documented) at patient's floor/unit and/or counseling patient: Coding Level of Care Code 92055 Subseq Hosp Care Lvl 3 Diagnoses Acute respiratory failure with hypoxia J96.01 Acute pulmonary embolism I26.99 Pulmonary embolism type: unspecified Acute cor pulmonale presence: without acute cor pulmonale Pulmonary infarction I26.99 DVT (deep venous thrombosis) I82.401 DVT location: lower extremity Affected thrombotic vein of extremity: unspecified vein of extremity Chronicity: acute Laterality: right Atrial fibrillation with RVR I48.91 Benign essential hypertension I10 BPH (benign prostatic hyperplasia) N40.0 Lower urinary tract symptom presence: symptoms absent Obstructive sleep apnea G47.33 Fever R50.9 Fever type: unspecified Left lumbar radiculopathy M54.16 Pulmonary HTN I27.20 (1) Acute pulmonary embolism Pulmonary embolism type: unspecified Acute cor pulmonale presence: without acute cor pulmonale Qualified Code(s): I26.99 - Other pulmonary embolism without acute cor pulmonale (2) DVT (deep venous thrombosis) DVT location: lower extremity Affected thrombotic vein of extremity: unspecified vein of extremity Chronicity: acute Laterality: right Qualified Code(s): I82.401 - Acute embolism and thrombosis of unspecified deep veins of right lower extremity (3) BPH (benign prostatic hyperplasia) Lower urinary tract symptom presence: symptoms absent Qualified Code(s): N40.0 - Benign prostatic hyperplasia without lower urinary tract symptoms (4) Fever Fever type: unspecified Qualified Code(s): R50.9 - Fever, unspecified
[2020-01-20] MEDS: APIXABAN 5 MG TABLET PO SCH (20:45)
[2020-01-21 07:15] LABS: Hematocrit (blood only) 37.9 % (42-52); Hemoglobin 13.2 g/dL (14.0-18.0); Mean Corpuscular Hemoglobin 32.3 pg (25-34); Mean Corpuscular Hgb Conc 34.8 g/dL (32-36); Mean Corpuscular Volume 92.7 fL (80-100); Mean Platelet Volume 9.7 fL (7.4-10.4); Platelet Count 334 K/uL (130-400); RDW Coefficient of Variation 13.1 % (11.5-14.5); RDW Standard Deviation 44.6 fL (36.4-46.3); Red Blood Count 4.09 M/uL (4.7-6.1); White Blood Count 9.85 K/uL (4.8-10.8)
[2020-01-21] MEDS: LOSARTAN POTASSIUM 50 MG TAB PO SCH (07:49)
[2020-01-21] MEDS: GABAPENTIN 400 MG CAP PO SCH (07:49)
[2020-01-21] MEDS: APIXABAN 5 MG TABLET PO SCH (07:49)
[2020-01-21 07:50] LABS: Albumin Level 2.7 gm/dl (3.4-5.0); BUN Creatinine Ratio 19.7 (10-20); Calcium 9.5 mg/dl (8.5-10.1); Est GFR (African American) 77.2; Est GFR (Non-African American) 66.7
[2020-01-21] MEDS: dilTIAZem HCL 240 MG CAPCR PO SCH (07:50)
[2020-01-21 07:52] LABS: Albumin Globulin Ratio 0.6 (0.9-2); Bilirubin,Total 0.7 mg/dl (0.2-1); Globulin 4.3 gm/dl (2.5-4.0)
--- NOTE | 2020-01-21 16:16 | Discharge Summary ---
Date of Service January 21, 2020 Admission HPI Per Admitting Provider This is a 65 yo M with PMHx of Benign essential hypertension, BPH, Obstructive sleep apnea, umbilical hernia who presents with acute shortness of breath which started this morning. He states that he had not been himself for a few days, but that today was significantly worse. He has been out getting his groceries, going to stores and was over to visit a friend last week where he wear a mask. He reports his largest pain is in his lower back and radiates down the left leg. He reports being very sedentary over the last few weeks, and has been using a walker and a crutch to help him get around his house. His right lower extremity is more swollen than the left. He has difficulty with deep inspirations, and developed a fever today. He denies any fever sweats or chills prior to today. He admits to loss of appetite over the last few days, and vomited once this morning. Patient denies any diarrhea, constipation. Patient was found to be in A. fib with RVR with HR in the 130s upon presentation, started on lovenox, and found with multiple PEs on CT PE conducted in the ER, T-max = 38.8, with O2 sats of 93% on room air. He denies any known exposure to COVID-19 positive people, recent travel, has been wearing a mask and practicing appropriate social distancing. He typically lives at home alone, but does have a sister who visits him frequently. He has been out getting his groceries, going to stores and was over to visit a friend last night where he wore a mask but his friends did not. Principal Diagnosis Pulmonary emboli Discharge Exam Constitutional WD/WN, vitals as above + overweight Eyes PERRL, conjunctivae normal, anicteric sclerae ENMT external ear and nose normal, oropharynx normal Neck trachea midline, no thyromegaly Respiratory normal respiratory effort, lungs clear to auscultation Cardiovascular Rate/Rhythm: regular rate and + irregularly irregular Heart Sounds: normal S1 and normal S2; no murmur Vessels: no JVD Extremities: normal capillary refill; no edema Gastrointestinal (Abdomen) normal bowel sounds, soft, nontender, no hepatosplenomegaly Musculoskeletal no cyanosis or clubbing, extremities motor strength 5/5 Skin no rashes, warm and dry Neurologic patellar DTR's 2+ bilat, sensation intact and PERRL, EOMI, accommodation nl, no face palsy, no dysarthria Psychiatric A+Ox3, euthymic affect Lymphatic no cervical or axillary lymphadenopathy Discharge Data Allergies Allergy/AdvReac Type Severity Reaction Status Date / Time Eehopqg-Lru-Jpu Reductase AdvReac Mild MUSCLE Verified 01/18/20 16:58 Inhibitor ACHES Consultations 01/18/20 18:08 Consult Case Management - Discharge Planning Routine 01/18/20 18:20 ED Decision to Admit Stat Ordered Studies 01/18/20 16:53 CT angio chest PE protocol Stat 01/18/20 18:07 US venous doppler LE Stat Hospital Course (1) Acute respiratory failure with hypoxia: 2nd to b/l PEs and likely RLL pulmonary infarction. o2 support. Systemic anticoagulation. Pain control for pleurisy from pulmonary infarct. Incentive spirometry. saturations 99% on room air encourage patient to be OOB as much as possible, ambulate when he can much more active today, did well with therapy, safe to return home (2) Acute pulmonary embolism: b/l PEs with extensive RLE DVT. No prior h/o VTE. Risk factor - significant immobility dating back to early December. Lumbar back pain with LLE radiculopathy led to severe immobility and sedentary lifestyle. Patient stopped working full-time. Would still recommend routine cancer screenings after his hospitalization. No family h/o VTE - defer on genetic testing. echo with intact RV function. trops negative. BPs wnl. treated with lovenox 1mg/kg BID. started Eliquis 10mg BID on 01/19, will be on 10mg BID x 7 days then 5mg BID social work did pharmacy check - will cost $10/month. plan - at least 6 months of Rx but may need longer given extent of RLE DVT and will need it for atrial fibrillation (3) Pulmonary infarction: RLL. This is cause of his pain. Treat pain symptoms. Treat PEs w/ anticoagulation. Incentive spirometry. O2 support. pain well controlled at time of discharge (4) DVT (deep venous thrombosis): Extensive, RLE. see doppler report. LLE is negative. Lovenox 1mg/kg BID, then transition to eliquis BID see discussion above. (5) Atrial fibrillation with RVR: Uncertain when he converted to this but very well this may be due to acute PEs. treated with cardizem infusion changed to Cardizem CD 240mg qAM on 01/19, HR well controlled TSH wnl. K/mag wnl. Echo with mildly dilated LA. LV function and valves wnl. Will need anticoagulation (eliquis). (6) Benign essential hypertension: Hold HCTZ to allow more room with BP for titration of cardizem. d/c on Cardizem and Losartan (7) BPH (benign prostatic hyperplasia): no issues not on meds (8) Obstructive sleep apnea: cont CPAP at HS (9) Left lumbar radiculopathy: Increase gabapentin to 400mg BID. Needs outpatient MRI to characterize extent of DJD, herniated discs, etc. Lumbar spine x-rays from 12/2019 showed mild DJD. [place] prn. (10) Pulmonary HTN: suspect due to GT cont CPAP needs PT/OT evals Total Time Total Time Spent Total Time Spent (In Minutes): 35 minutes Total Time Includes: Examination of the Patient, Discharge Planning and Medication Reconciliation Discharge Plan Discharge Items Patient Disposition: Home - Self-Care Reason For Visit: AFIB WITH RVR, PE Discharge Diagnosis: Bilateral pulmonary emboli Right lower lobe pulmonary infarct Atrial fibrillation with rapid ventricular response Condition on Discharge: Good Goals: continue Eliquis for treatment of pulmonary emboli continue Diltiazem to control heart rate, afib Activity: Per Instructions section Lifting: Gradually increase as tolerated Bathing: No limitations Exercise/Sports: Gradually increase as tolerated Driving/Machine Use: Resume 1 day after discharge Weightbearing: Full weightbearing Non-emergency contact: Primary Care Provider Call non-emergency contact if: you have any medication questions and your symptoms worsen Follow-up/Referrals: Walter Herr MD [Primary Care Provider] - (one week) Diet: Heart Healthy Addtl Attending Provider Instructions: Medications: - DILTIAZEM: 240mg every morning for heart rate control with atrial fibrillation - ELIQUIS: take 10mg twice a day for 6 more days, then reduced to 5mg twice a day, take indefinitely - GABAPENTIN: dose increased to 400mg twice a day - HYDROCHLOROTHIAZIDE: stop taking this medication as you are now on Diltiazem Pulmonary emboli, DVT, likely caused by decreased activity, being immobile with your back pain treated with Lovenox injections initially, transitioned to Eliquis twice a day gradually increase your activity as tolerated try to stay upright as much as possible to promote adequate expansion of your lungs Atrial fibrillation with rapid response likely caused by pulmonary emboli, placed more strain on your heart rates controlled by Diltiazem echocardiogram showed some elevated right sided pressures, likely due to clots, overall heart function preserved will be on Eliquis for stroke prophylaxis please follow up closely with Dr. Herr Pending Studies at Discharge: No Stand-Alone Forms: My [facility], Smoking Cessation Medications and DC Order Prescriptions: New diltiazem HCl 240 mg Capsule,Extended Release 24hr 240 mg PO QAM 30 Days Qty: 30 RF: 3 gabapentin 400 mg Capsule 400 mg PO BID 30 Days Qty: 60 RF: 1 Eliquis 5 mg Tablet 10 mg PO BID 6 Days Qty: 24 RF: 0 Eliquis 5 mg tablet 5 mg PO BID Qty: 30 RF: 3 Continued losartan 100 mg tablet 100 mg PO DAILY Qty: 90 RF: 3 multivitamin [Daily Multi-Vitamin] tablet 1 tab PO DAILY RF: 0 hydrocodone-acetaminophen 5-325 mg tablet See Rx Instructions PO Q8H PRN (Reason: pain) Qty: 60 RF: 0 Discontinued hydrochlorothiazide 25 mg tablet 25 mg PO DAILY Qty: 90 RF: 3 gabapentin [Neurontin] 300 mg capsule 300 mg PO BID Qty: 60 RF: 2 Discharge Orders: Discharge Order (Routine); Ordered 01/21/20 Ordered By: Luis Manuel Babb/Other Patient Handouts: DVT Dc, Embolism Pulmonary Dc, ED AFIB, Gabapentin capsules or tablets, Apixaban oral tablets, Diltiazem extended- release capsules or tablets Admission Data Admit Date/Time: 01/18/20 18:07 Attending Provider: Luis Manuel Fernando Admit Provider: Abiodun Hough Primary Care Provider: Walter Herr Other Providers: Abiodun Hough Other Interventions: Discharge Summary Assessment (RN) Last Done: 01/21/20 09:57 DC Date/Time DO NOT enter until pt leaves facility: 01/21/20 12:25 Coding Level of Care Code D/C Day Management >30 mins Diagnoses Acute respiratory failure with hypoxia J96.01 Acute pulmonary embolism I26.99 Acute cor pulmonale presence: without acute cor pulmonale Pulmonary embolism type: unspecified Pulmonary infarction I26.99 DVT (deep venous thrombosis) I82.401 Affected thrombotic vein of extremity: unspecified vein of extremity Chronicity: acute DVT location: lower extremity Laterality: right Atrial fibrillation with RVR I48.91 Benign essential hypertension I10 BPH (benign prostatic hyperplasia) N40.0 Lower urinary tract symptom presence: symptoms absent Obstructive sleep apnea G47.33 Left lumbar radiculopathy M54.16 Pulmonary HTN I27.20
== END 2020-01-21 12:25 | disposition home or self-care (01) | DRG 175 ==
LOC: ED 15:04 → SUATTDRO 18:07 → 2S 18:07

== ENCOUNTER 2022-03-02 07:03 | Observation (INO) ==
[2022-03-02] MEDS ORDERED: ACETAMINOPHEN 500 MG TAB PO STA (07:31)
--- NOTE | 2022-03-02 07:32 | Emergency Department Note ---
Impression & Plan COVID-19, Acute hypotension, Headache, Acute dehydration ED Provider Note Name: HARRIET HENDRICKSON Age: 67 Sex: M Arrives Via: Walk-In Informant: Patient, ED Provider: Eber Rodriguez MD Chief Complaint: Headache Impression: As per impressions above Medical Decision Making: Jena 67-year-old gentleman with a known history of A. fib/PEs, BPH, hypertension, dyslipidemia arrives for evaluation of what he reports 2 weeks of headache, fatigue, lack of appetite and now near syncope with standing. He is continue taking his blood thinner thus PE seems unlikely. He has a significant headache thus CT of the head with CTA of the head and neck were obtained which is remarkable for a significant narrowing of the carotids. His COVID testing is positive. He is quite hypotensive with standing to the blood pressures in the 70s. He was given IV fluids which improved blood pressure somewhat but he still orthostatic thus further IV fluids were given. Blood pressure is a bit on the tenuous side though not quite as severe as originally. Patient has improvement in headache he has no current neurologic deficits and he is breathing comfortably. I not see any clear evidence of a bacterial infection at this time and symptoms are consistent with COVID and acute dehydration, however with the hypotension and this reported weakness in the last few weeks and I do think that further evaluation and management is necessary as an inpatient and hospitalist was consulted for further management. Given his troponin unremarkable as EKG looks all right I do not feel this is consistent with acute myopericarditis. I think her blood pressure is more likely related to dehydration rather than septic shock at this time and thus we will hold off on any IV antibiotics especially given the known positive COVID-19 testing. He is not hypoxic thus Decadron not indicated. Prior Medical Record and Triage/Nursing Notes reviewed by Me Additional history obtained from chart Differentials:Migraine headache, meningitis, sinusitis, CO exposure, ICH, SAH, infection, tumor, headache, sinus thrombosis, arterial dissection, as well as ot her pathologies. Vital Signs: reviewed and remarkable for hypotension Interventions: Normal saline bolus 2 L IV, Tylenol p.o. Labs:Reviewed and remarkable for positive COVID-19, elevated CRP Imaging:CT of the head and neck with angio negative acute findings other than he has evidence of significant carotid stenosis as per radiologist Consults:[place] hospitalist Plan: Disposition:Hospitalization. Condition: Good History of Present Illness:Pleasant 67-year-old gentleman arrives for evaluation of headache. Patient notes he has been feeling ill with a gradually worsening headache for the last 2 weeks. Associated with fatigue, malaise and sometimes body aches. He notes that he has been getting increasingly weak and anytime he stands he gets quite lightheaded and feels like he may pass out. He has no chest pain or shortness of breath. He denies any fevers, chills, nausea, vomiting, abdominal pain, urinary/bowel symptoms, leg swelling, calf pain, rashes, bleeding/bruising or other concerning signs or symptoms. He does note that a few weeks ago he had an episode where his right leg did not seem to be working but this resolved after few hours. He takes Eliquis for previous PE as well as A. fib management. He is not on aspirin or Plavix. Patient denies any falls, trauma, injuries. He had no medications prior to arrival. No known sick contacts. ROS: See above HPI for pertinent positives & negatives. A total of 10 systems reviewed and were otherwise negative. Past Medical History:See Below Past Surgical History:See Below Family History:See Below Social History:See Below Home Medications:See Below Allergies: Statins, ropinirole Vitals:Blood Pressure: 86/40, Pulse 77, RR 16, T 37.2 C, O2 97% on RA Physical Exam: GENERAL: Patient is tired appearing and in mild distress. EYES: No scleral icterus, unremarkable pupils. ENT: Mucous membranes dry, no nasal congestion. NECK: No masses appreciated, nomeningismus, trachea is midline. RESPIRATORY: No dyspnea. Clear to auscultation and equal bilaterally. No wheeze, no rhonchi. CARDIOVASCULAR: Irregular.No murmurs, rubs, gallops appreciated. GASTROINTESTINAL: Abdomen soft, non-tender, no peritonitis.Bowel sounds p ositive.No masses appreciated. BACK: No midline tenderness, no CVA tenderness EXTREMITIES: Normal motion all extremities, no cyanosis, no edema. NEUROLOGIC: Alert and oriented, no acute motor or sensory deficits, no focal weakness, cranial nerves grossly intact. SKIN: No rash, no jaundice, no diaphoresis. PSYCH: Appropriate GCS: 15 ED Course: Times/Reassessments: Patient's blood pressure improved with IV fluids however with getting up to go to the bathroom his blood pressure drops again. Further fluids ordered. Patient is feeling much better after fluids and Tylenol. Patient is comfortable with plan for hospitalization Eber Rodriguez MD Past Med/Surg History Medical History (Updated 03/04/22 @ 08:11 by Eber Rodriguez MD) Atrial fibrillation with RVR Benign essential hypertension BPH (benign prostatic hyperplasia) FLORES (dyspnea on exertion) DVT (deep venous thrombosis) Dyspnea Hydrocephalus Obstructive sleep apnea PAF (paroxysmal atrial fibrillation) Pulmonary embolism Right lumbar radiculopathy Umbilical hernia Surgical History History of cholecystectomy History of incisional hernia repair Family History Mother Breast cancer Hypertension Father COPD (chronic obstructive pulmonary disease) Grandmother (Maternal) Cancer Grandfather Stroke Denies family history of Rheumatoid arthritis Sudden SIDS (sudden syndrome) Ovarian cancer Prostate cancer Diabetes Deep vein thrombosis Osteoporosis Coronary heart disease Dyslipidemia Cerebral aneurysm Alzheimer disease Bipolar disorder Clotting disorder Crohn's disease Dementia Depression Heart disease Kidney disease Myocardial infarction Osteoarthritis Schizophrenia Congenital kidney disease Gestational diabetes Lung cancer Colorectal cancer Pulmonary embolism Lung disease Ulcerative colitis Colonic polyp Asthma Cystic kidney disease Social History Smoking Status: Never smoker Second Hand Exposure: No; Do You Dip or Chew Tobacco: No; Tobacco Cessation Education Requested by Patient: No Hx Alcohol Use: Yes Alcohol type: beer Hx Substance Use: No Preferred Language: Wolof Communication Ability: Effective Visual Impairment: No Limitations Hearing Ability: Normal Veterinary Dentist Required: No Beliefs That Will Affect Care: None marital status: Single Current Living Situation: Alone current occupational status: employed current occupation: [employer] Other Information That Helps Us Care for You: No Feels Safe at Home: Yes Safety Concerns: Feels Safe At This Time Childhood Exposure to Second-Hand Smoke: Yes caffeine: Yes Dental Care, Regularly: Yes Physical Activity Frequency: Does not Exercise Seatbelt Use: sometimes Sunscreen Use: No Assistive Devices: Glasses Allergies Allergies Allergy/AdvReac Type Severity Reaction Status Date / Time [id number]-OXQ-[id number] Reductase AdvReac Mild MUSCLE Verified 03/02/22 07:41 Inhibitor ACHES [Dyzpwwz-Mco-Npc Reductase Inhibitor] ropinirole AdvReac excessive Verified 03/02/22 07:41 sedation Home Meds Home Medications Medication Instructions Recorded Confirmed multivitamin (Daily Multi-Vitamin) 1 tab PO QAM 06/09/19 03/02/22 acetaminophen 650 mg 650 mg PO Q12H PRN 03/02/22 03/02/22 tablet,extended release diltiazem HCl 300 mg capsule,24 300 mg PO DAILY@1600 03/02/22 03/02/22 hr,extended release duloxetine 60 mg capsule,delayed 60 mg PO DAILY 03/02/22 03/02/22 release losartan 100 1 tab PO QAM 03/02/22 03/02/22 mg-hydrochlorothiazide 12.5 mg tablet Previous Rx's Medication Instructions Recorded apixaban 5 mg tablet (Eliquis) 5 mg PO BID #180 tab 11/26/21 Results & Data (ED) Vital Signs Vital Signs - 24 hr 03/02/22 07:11 Temperature 36.8 C Temperature Source Temporal Artery Scan Pulse Rate 114 H Respiratory Rate 18 Respiratory Effort / Characteristics Non-Labored Respiratory Depth Normal Blood Pressure 104/71 Blood Pressure Mean 82 Pulse Oximetry 95 Oxygen Delivery Method Room Air Sepsis Recent Fever Within 48 Hours No Sepsis New/Unexplained Change in Mental Status No Sepsis Action Taken by Nursing No Action Required Laboratory Data Result diagrams: 03/03/22 10:31 03/03/22 10:31 Lab Results 03/02/22 03/02/22 03/02/22 Range/Units 07:25 07:25 07:25 WBC 7.48 (4.8-10.8) K/uL RBC 4.68 L (4.7-6.1) M/uL Hgb 15.2 (14.0-18.0) g/dL Hct 43.3 (42-52) % MCV 92.5 (80-100) fL MCH 32.5 (25-34) pg MCHC 35.1 (32-36) g/dL RDW Std Deviation 45.1 (36.4-46.3) fL RDW Coeff of Maksim 13.3 (11.5-14.5) % Plt Count 239 (130-400) K/uL MPV 10.2 (7.4-10.4) fL Immature Gran % (Auto) 0.4 % Neut % (Auto) 73.8 % Lymph % (Auto) 12.4 % [place] % (Auto) 10.6 % Eos % (Auto) 1.6 % Baso % (Auto) 1.2 % Neut # (Auto) 5.52 (1.4-6.5) K/uL Lymph # (Auto) 0.93 L (1.2-3.4) K/uL [place] # (Auto) 0.79 H (0.11-0.59) K/uL Eos # (Auto) 0.12 (0-0.5) K/uL Baso # (Auto) 0.09 (0-0.2) K/uL Immature Gran # (Auto) 0.03 H (0.00-0.02) K/uL PT 12.2 H (9.0-12.0) Seconds INR 1.2 H (0.9-1.1) APTT 29.6 (21.0-31.0) Seconds PTT Ratio 1.1 D-Dimer (0-500) ug/L FEU Sodium 136 (136-145) mmol/L Potassium 3.8 (3.5-5.1) mmol/L Chloride 106 (98-107) mmol/L Carbon Dioxide 21 (21-32) mmol/L Anion Gap 9 (3-11) BUN 18 (6-23) mg/dl Creatinine 1.39 (0.6-1.4) mg/dl Est Cr Clr Drug Dosing 63.9 ml/min Est GFR ( Amer) 61.2 ml/min Est GFR (Non-Af Amer) 52.8 ml/min BUN/Creatinine Ratio 12.9 (10-20) Glucose 153 H (70-99(Fasting)) mg/dl Lactate (0.4-2.0) mmol/L Calcium 9.6 (8.5-10.1) mg/dl Magnesium 1.7 (1.7-2.4) mg/dl Total Bilirubin 0.6 (0.2-1.0) mg/dl Direct Bilirubin 0.0 (0-0.2) mg/dl AST 14 (13-39) U/L ALT 15 (7-52) U/L Alkaline Phosphatase 79 (34-104) U/L Troponin I High Sens 8.5 (0-20) pg/ml C-Reactive Protein (0-0.5) mg/dl Total Protein 6.9 (6.0-8.3) gm/dl Albumin 4.2 (3.4-5.0) gm/dl Procalcitonin (0-0.5) ng/ml Urine Color Urine Appearance (Clear) Urine pH (4.5-7.5) Ur Specific [place] (1.000-1.030) Urine Protein (Negative) Urine Glucose (UA) (Negative) Urine Ketones (Negative) Urine Blood (Negative) Urine Nitrite (Negative) Urine Bilirubin (Negative) Urine Urobilinogen (Negative) Ur Leukocyte Esterase (Negative) SARS-CoV-2, RNA, NAAT (NEGATIVE) 03/02/22 03/02/22 03/02/22 Range/Units 07:40 09:25 11:44 WBC (4.8-10.8) K/uL RBC (4.7-6.1) M/uL Hgb (14.0-18.0) g/dL Hct (42-52) % MCV (80-100) fL MCH (25-34) pg MCHC (32-36) g/dL RDW Std Deviation (36.4-46.3) fL RDW Coeff of Maksim (11.5-14.5) % Plt Count (130-400) K/uL MPV (7.4-10.4) fL Immature Gran % (Auto) % Neut % (Auto) % Lymph % (Auto) % [place] % (Auto) % Eos % (Auto) % Baso % (Auto) % Neut # (Auto) (1.4-6.5) K/uL Lymph # (Auto) (1.2-3.4) K/uL [place] # (Auto) (0.11-0.59) K/uL Eos # (Auto) (0-0.5) K/uL Baso # (Auto) (0-0.2) K/uL Immature Gran # (Auto) (0.00-0.02) K/uL PT (9.0-12.0) Seconds INR (0.9-1.1) APTT (21.0-31.0) Seconds PTT Ratio D-Dimer 330 (0-500) ug/L FEU Sodium (136-145) mmol/L Potassium (3.5-5.1) mmol/L Chloride (98-107) mmol/L Carbon Dioxide (21-32) mmol/L Anion Gap (3-11) BUN (6-23) mg/dl Creatinine (0.6-1.4) mg/dl Est Cr Clr Drug Dosing ml/min Est GFR ( Amer) ml/min Est GFR (Non-Af Amer) ml/min BUN/Creatinine Ratio (10-20) Glucose (70-99(Fasting)) mg/dl Lactate (0.4-2.0) mmol/L Calcium (8.5-10.1) mg/dl Magnesium (1.7-2.4) mg/dl Total Bilirubin (0.2-1.0) mg/dl Direct Bilirubin (0-0.2) mg/dl AST (13-39) U/L ALT (7-52) U/L Alkaline Phosphatase (34-104) U/L Troponin I High Sens (0-20) pg/ml C-Reactive Protein (0-0.5) mg/dl Total Protein (6.0-8.3) gm/dl Albumin (3.4-5.0) gm/dl Procalcitonin (0-0.5) ng/ml Urine Color Yellow Urine Appearance Clear (Clear) Urine pH 6.0 (4.5-7.5) Ur Specific [place] > 1.045 H (1.000-1.030) Urine Protein Negative (Negative) Urine Glucose (UA) Negative (Negative) Urine Ketones Negative (Negative) Urine Blood Negative (Negative) Urine Nitrite Negative (Negative) Urine Bilirubin Negative (Negative) Urine Urobilinogen Negative (Negative) Ur Leukocyte Esterase Negative (Negative) SARS-CoV-2, RNA, NAAT POSITIVE A* (NEGATIVE) 03/02/22 03/02/22 03/02/22 Range/Units 11:44 11:44 11:47 WBC (4.8-10.8) K/uL RBC (4.7-6.1) M/uL Hgb (14.0-18.0) g/dL Hct (42-52) % MCV (80-100) fL MCH (25-34) pg MCHC (32-36) g/dL RDW Std Deviation (36.4-46.3) fL RDW Coeff of Maksim (11.5-14.5) % Plt Count (130-400) K/uL MPV (7.4-10.4) fL Immature Gran % (Auto) % Neut % (Auto) % Lymph % (Auto) % [place] % (Auto) % Eos % (Auto) % Baso % (Auto) % Neut # (Auto) (1.4-6.5) K/uL Lymph # (Auto) (1.2-3.4) K/uL [place] # (Auto) (0.11-0.59) K/uL Eos # (Auto) (0-0.5) K/uL Baso # (Auto) (0-0.2) K/uL Immature Gran # (Auto) (0.00-0.02) K/uL PT (9.0-12.0) Seconds INR (0.9-1.1) APTT (21.0-31.0) Seconds PTT Ratio D-Dimer (0-500) ug/L FEU Sodium (136-145) mmol/L Potassium (3.5-5.1) mmol/L Chloride (98-107) mmol/L Carbon Dioxide (21-32) mmol/L Anion Gap (3-11) BUN (6-23) mg/dl Creatinine (0.6-1.4) mg/dl Est Cr Clr Drug Dosing ml/min Est GFR ( Amer) ml/min Est GFR (Non-Af Amer) ml/min BUN/Creatinine Ratio (10-20) Glucose (70-99(Fasting)) mg/dl Lactate 0.9 (0.4-2.0) mmol/L Calcium (8.5-10.1) mg/dl Magnesium (1.7-2.4) mg/dl Total Bilirubin (0.2-1.0) mg/dl Direct Bilirubin (0-0.2) mg/dl AST (13-39) U/L ALT (7-52) U/L Alkaline Phosphatase (34-104) U/L Troponin I High Sens (0-20) pg/ml C-Reactive Protein 1.86 H (0-0.5) mg/dl Total Protein (6.0-8.3) gm/dl Albumin (3.4-5.0) gm/dl Procalcitonin 0.13 (0-0.5) ng/ml Urine Color Urine Appearance (Clear) Urine pH (4.5-7.5) Ur Specific [place] (1.000-1.030) Urine Protein (Negative) Urine Glucose (UA) (Negative) Urine Ketones (Negative) Urine Blood (Negative) Urine Nitrite (Negative) Urine Bilirubin (Negative) Urine Urobilinogen (Negative) Ur Leukocyte Esterase (Negative) SARS-CoV-2, RNA, NAAT (NEGATIVE) Administered Medications Acetaminophen (Acetaminophen 325 Mg Tab) 650 mg PO Q4H PRN PRN Reason: Pain or Fever Stop: 04/01/22 13:40 Last Admin: 03/03/22 17:22 Dose: 650 mg Documented by: [id number] Admin: 03/02/22 21:27 Dose: 650 mg Documented by: [id number] Apixaban (Apixaban 5 Mg Tablet) 5 mg PO BID RODLAN Stop: 04/01/22 20:59 Last Admin: 03/03/22 21:40 Dose: 5 mg Documented by: [id number] Admin: 03/03/22 07:55 Dose: 5 mg Documented by: [id number] Admin: 03/02/22 21:27 Dose: 5 mg Documented by: [id number] Aspirin (Aspirin 81 Mg Ectab) 81 mg PO DAILY ROLDAN Stop: 04/02/22 08:59 Last Admin: 03/03/22 07:55 Dose: 81 mg Documented by: [id number] Benzonatate (Benzonatate 100 Mg Capsule) 100 mg PO TID PRN PRN Reason: cough Stop: 04/01/22 13:40 Last Admin: 03/03/22 02:08 Dose: 100 mg Documented by: [id number] Doxycycline Hyclate 100 mg/ (Dextrose) 110 mls @ 50 mls/hr IV Q12H ROLDAN Stop: 03/05/22 12:59 Last Infusion: 03/04/22 04:42 Dose: 0 mls/hr Documented by: [id number] Admin: 03/04/22 02:30 Dose: 50 mls/hr Documented by: [id number] Infusion: 03/03/22 17:20 Dose: 0 mls/hr Documented by: [id number] Admin: 03/03/22 14:47 Dose: 50 mls/hr Documented by: [id number] Melatonin (Melatonin 3 Mg Tab) 3 mg PO HS PRN PRN Reason: Sleep Stop: 04/02/22 01:33 Last Admin: 03/03/22 21:40 Dose: 3 mg Documented by: [id number] Admin: 03/03/22 02:08 Dose: 3 mg Documented by: [id number] Menthol (Cough Drop (Sugar Free) Stephen 24 Stephen/1 Box) 1 stephen BUCCAL Q2H PRN PRN Reason: Sore Throat Stop: 04/01/22 13:40 Last Admin: 03/03/22 21:40 Dose: 1 stephen Documented by: [id number] Discontinued Medications Acetaminophen (Acetaminophen 500 Mg Tab) 1,000 mg PO NOW STA Stop: 03/02/22 07:32 Last Admin: 03/02/22 07:39 Dose: 1,000 mg Documented by: [id number] Sodium Chloride (Nss 1000ml) 1,000 mls @ 999 mls/hr IV .Q1H1M ONE Stop: 03/02/22 09:37 Last Infusion: 03/02/22 09:35 Dose: 0 mls/hr Documented by: [id number] Admin: 03/02/22 08:43 Dose: 999 mls/hr Documented by: [id number] Sodium Chloride (Nss 1000ml) 1,000 mls @ 999 mls/hr IV .Q1H1M ONE Stop: 03/02/22 11:04 Last Infusion: 03/02/22 12:05 Dose: 0 mls/hr Documented by: [id number] Admin: 03/02/22 11:05 Dose: 999 mls/hr Documented by: [id number] Lactated Ringer's (Lr) 1,000 mls @ 80 mls/hr IV .[id number] ROLDAN Stop: 03/03/22 14:40 Last Infusion: 03/03/22 10:48 Dose: 0 mls/hr Documented by: [id number] Admin: 03/03/22 02:12 Dose: 80 mls/hr Documented by: [id number] Infusion: 03/03/22 02:12 Dose: 0 mls/hr Documented by: [id number] Infusion: 03/02/22 23:00 Dose: 0 mls/hr Documented by: [id number] Admin: 03/02/22 13:56 Dose: 80 mls/hr Documented by: [id number] Lactated Ringer's (Lr) 500 mls @ 999 mls/hr IV .Q31M ONE Stop: 03/02/22 23:22 Last Infusion: 03/03/22 01:36 Dose: 0 mls/hr Documented by: [id number] Admin: 03/03/22 01:01 Dose: 999 mls/hr Documented by: [id number] Ioversol (Optiray 320 125ml) 120 ml IV ONCE ONE Stop: 03/02/22 08:34 Last Admin: 03/02/22 08:25 Dose: 120 ml Documented by: [id number] Discharge Plan Visit Data Chief Complaint: Headache Stated Complaint: HEADACHE,CAN'T KEEP BALANCE ED Provider: Eber Rodriguez Discharge Problem: COVID-19, Acute hypotension, Headache, Acute dehydration Patient Disposition: Admitted As Inpatient Discharge Instructions Interventions: ED Discharge Assessment Last Done: 03/02/22 13:30 Discharge Problem: Headache Qualifiers: Headache type: unspecified Headache chronicity pattern: acute headache Intractability: not intractable Qualified Code(s): R51.9 - Headache, unspecified
[2022-03-02 07:44] LABS: Basophils # (auto) 0.09 K/uL (0-0.2); Basophils % (auto) 1.2 %; Eosinophils # (auto) 0.12 K/uL (0-0.5); Eosinophils % (auto) 1.6 %; Hematocrit (blood only) 43.3 % (42-52); Hemoglobin 15.2 g/dL (14.0-18.0); Immature Granulocytes # (auto) 0.03 K/uL (0.00-0.02); Immature Granulocytes % (auto) 0.4 %; Lymphocytes # (auto) 0.93 K/uL (1.2-3.4); Lymphocytes % (auto) 12.4 %; Mean Corpuscular Hemoglobin 32.5 pg (25-34); Mean Corpuscular Hgb Conc 35.1 g/dL (32-36); Mean Corpuscular Volume 92.5 fL (80-100); Mean Platelet Volume 10.2 fL (7.4-10.4); Monocytes # (auto) 0.79 K/uL (0.11-0.59); Monocytes % (auto) 10.6 %; Neutrophils # (auto) 5.52 K/uL (1.4-6.5); Neutrophils % (auto) 73.8 %; Platelet Count 239 K/uL (130-400); RDW Coefficient of Variation 13.3 % (11.5-14.5); RDW Standard Deviation 45.1 fL (36.4-46.3); Red Blood Count 4.68 M/uL (4.7-6.1); White Blood Count 7.48 K/uL (4.8-10.8)
[2022-03-02 08:03] LABS: Albumin Level 4.2 gm/dl (3.4-5.0); BUN Creatinine Ratio 12.9 (10-20); Bilirubin,Total 0.6 mg/dl (0.2-1.0); Calcium 9.6 mg/dl (8.5-10.1); Creatinine Clr Calc Pharmacy 63.9 ml/min; Est GFR (African American) 61.2 ml/min; Est GFR (Non-African American) 52.8 ml/min; Magnesium 1.7 mg/dl (1.7-2.4); Potassium 3.8 mmol/L (3.5-5.1); Total Protein 6.9 gm/dl (6.0-8.3)
[2022-03-02 08:05] LABS: INR 1.2 (0.9-1.1); Partial Thromboplastin Ratio 1.1; Partial Thromboplastin Time 29.6 Seconds (21.0-31.0); Prothrombin Time 12.2 Seconds (9.0-12.0)
[2022-03-02 08:09] LABS: Troponin I High Sensitivity 8.5 pg/ml (0-20)
[2022-03-02] MEDS ORDERED: OPTIRAY 320 125ml IV ONE (08:33)
[2022-03-02] MEDS ORDERED: SODIUM CHLORIDE 0.9% 1000ML 1,000 ML IV ONE ×2 (08:37→10:04)
--- NOTE | 2022-03-02 08:47 | CT Scan Report ---
CT angio head wo/w CLINICAL HISTORY: sudden onset headache, ataxia COMPARISON STUDY: Head CT February 15, 2020. MRI of the brain March 09, 2020. TECHNIQUE: Unenhanced and arterial phase imaging of the head was performed. Intravenous injection of 120 cc Optiray 320 IV was uneventful. Sagittal and coronal reconstructions were viewed as well as max imal intensity projections on an independent 3-D workstation. Automated exposure control was utilized for the study. A dose lowering technique was utilized adhering to the principles of ALARA. FINDINGS: No acute intracranial hemorrhage, midline shift or mass effect is present. Moderate dilatat ion of the lateral and third ventricles is unchanged since head CT of February 15, 2020 and MRI of February. Forefoot was normal in caliber. White matter hypodensities are unchanged. Basal cisterns are patent. There are no extra-axial collections. The appearance of the brain is unchanged. No findings t o suggest acute dural sinus thrombosis or acute territorial infarct. The bilateral M1, M2, A1 and A2 segments are patent. There is no central vessel occlusion. There is m ild atherosclerotic plaque within the bilateral cavernous carotids without stenosis. The posterior ci rculation is also intact. There may be mild stenosis of the bilateral P1 segments. There is no intrac ranial aneurysm. There is no dissection within the intracranial vessels. Major dural sinuses are garcia nt. IMPRESSION: 1. No acute intracranial hemorrhage or mass effect. 2. No central vessel occlusion or intracranial aneurysm. 3. Moderate dilatation of the lateral and third ventricles suggestive of hydrocephalus. However, this is unchanged since prior head CT of February 15, 2020 and MRI of March 09, 2020. Therefore, the clinical s ignificance of this finding is uncertain. ACT 112: Negative or not required by law. Electronically signed by: Herbert Bhatti M.D. 03/02/2022 8:46 AM
--- NOTE | 2022-03-02 08:55 | CT Scan Report ---
CT angio neck with con CLINICAL HISTORY: sudden onset headache, ataxia TECHNIQUE: CT angiography of the head and neck was performed following intravenous administration of iodinated contrast. Coronal and sagittal MIPS were obtained from the axial data set and were submitt ed for review. Automated dose lowering techniques and/or adjustment according to patient size were u tilized for this examination. All measurements were calculated based on NASCET criteria. Comparison: None available at the time of this dictation. FINDINGS: CTA Neck: The aortic arch and the origins of the innominate, left subclavian, and left common caroti d artery are not imaged There is no significant atherosclerotic plaque in the aortic arch or the orig ins of the innominate, left common carotid, and left subclavian arteries. Extensive atherosclerotic disease is seen in the bilateral carotid arteries. There is hemodynamically significant stenosis in the left internal carotid artery with greater than 70% stenosis. The right internal carotid artery de monstrates less than 70% stenosis. The vertebral arteries are codominant. IMPRESSION: Hemodynamically significant stenosis in the left internal carotid artery. Significant atherosclerotic disease without hemodynamically significant stenosis in the right. Findings can be further evaluated by carotid ultrasound. Assessment of stenosis of the internal carotid arteries is based on NASCET criteria. ACT 112: Negative or not required by law. Electronically signed by: Luis Manuel Harris M.D. 03/02/2022 8:54 AM
[2022-03-02 10:37] LABS: Appearance Urine Clear (Clear); Bilirubin Urine Negative (Negative); Blood Urine Negative (Negative); Color Urine Yellow; Glucose Urine UA Negative (Negative); Ketones Urine Negative (Negative); Leukocyte Esterase Urine Negative (Negative); Nitrite Urine Negative (Negative); Protein Urine Negative (Negative); Specific Gravity Urine > 1.045 (1.000-1.030); Urobilinogen Urine Negative (Negative)
--- NOTE | 2022-03-02 11:17 | History & Physical Report ---
Date of Service March 02, 2022 Assessment & Plan (1) COVID-19: Plan: - Symptoms include headache, cough, runny nose over the past 14 days. No known positive COVID contacts. He has had his J&J vaccine, and omitted a booster >3 months ago. - No difficulty breathing, given he is on day #14 of symptoms, will treat with supportive care: Tessalon perles, Tylenol, oral lozenges as needed. (2) Hypotension: Plan: - No other evidence to indicate sepsis, may be in setting of viral illness/decreased PO intake, while on antihypertensives. - Received 1L NS bolus in ED x2, will continue with maintenance IVF, hold losartan/HCTZ, diltiazem, as well as Cymbalta. - Obtain orthostatics. (3) Carotid stenosis: Plan: - Noted on neck CTA, > 70% stenosis of left ICA. With a reported episode 1 year ago where he was unable to lift his right leg, resolved completely after 30 minutes. Had not told anyone or pursued a workup at that time. Suspicious for TIA. No recurrence or other episodes, denies ever experiencing visual changes/loss, numbness, tingling, speech difficulties. - Will consult vascular surgery to see pt while he is here. - Also order brain MRI to look for evidence of stroke, carotid U/S for further evaluation of stenosis. - Patient reports intolerance to multiple statins, told he cannot be on ASA due to taking Eliquis. - Patient will need to be started on ASA 81 daily, as outpatient should be trialed on other cholesterol medications. (4) Atrial fibrillation: Plan: - Hold diltiazem for today given hypotension. - Continue Eliquis 5 mg BID. Reports he has not missed any doses. - Given history of PEs, and with COVID-19 infection, obtain D-dimer--> 330. No need for further imaging. (5) Benign essential hypertension: Plan: - Hypotensive today, will hold losartan/HCTZ as well as Diltiazem and Cymbalta. (6) Right lumbar radiculopathy: Plan: - Received epidural spine injection on 02/09. - Prescribed Cymbalta, per pt takes this on prn basis. - Holding for now as it is known to cause hypotension in a number of patients. (7) Hydrocephalus: Plan: - Seen on head CTA today, unchanged from imaging in 2020. - No clinical symptoms at this time. Plan: - Obs on med/tele. - SCDs, Eliquis for VTE ppx. - Full code. History of Present Illness Chief Complaint: Headache x14 days Primary Care Provider: Walter Herr MD Cleve Diez is a 67-year-old male with PMH PE A. fib in 2020 now on Eliquis, hypertension, and lumbar back pain who presents today with complaints of headache. He has had a lingering headache for the past 14 days, general throughout his head just feels like a "normal headache for him ". Is been ta abdirashid Tylenol intermittently with resolution of this temporarily. He is also developed a runny nose and occasional dry cough with this. He was set to see his PCP yesterday for this, however the appointment was canceled for reasons unknown to patient. No other associated symptoms, he does have episodes of lightheadedness and dizziness which have been ongoing for but seems like years now. There have not been any worse since development of of symptoms. He does have both his COVID vaccination and booster, however booster was >3 months ago. No known sick contacts. Has no difficulty breathing, no chest pain, or episodes of shortness of breath. In ED, hypotensive with SBP 80-90s, otherwise VS within normal limits. COVID-19 positive. D-dimer 330. Labs largely unremarkable. Pro-Darrel, CRP, lactate pending. Head CTA with no acute intracranial hemorrhage or mass effect, no central vein occlusion, or aneurysms. Moderate dilatation of the lateral and third ventricles suggestive of hydrocephalus is unchanged since prior imaging in February 2020. Neck CTA with > 70% stenosis of the left ICA, < 70% stenosis in right ICA. Allergies Allergy/AdvReac Type Severity Reaction Status Date / Time Zugbdft-ZZF-FqT Reductase AdvReac Mild MUSCLE Verified 03/02/22 07:41 Inhibitor ACHES [Ntbhbrc-Arc-Fmw Reductase Inhibitor] ropinirole AdvReac excessive Verified 03/02/22 07:41 sedation Home Medications Medication Instructions Recorded Confirmed Type multivitamin (Daily Multi-Vitamin) 1 tab PO QAM 06/09/19 03/02/22 History apixaban 5 mg tablet (Eliquis) 5 mg PO BID #180 tab 11/26/21 03/02/22 Rx acetaminophen 650 mg 650 mg PO Q12H PRN 03/02/22 03/02/22 History tablet,extended release diltiazem HCl 300 mg capsule,24 300 mg PO DAILY@1600 03/02/22 03/02/22 History hr,extended release duloxetine 60 mg capsule,delayed 60 mg PO DAILY 03/02/22 03/02/22 History release losartan 100 1 tab PO QAM 03/02/22 03/02/22 History mg-hydrochlorothiazide 12.5 mg tablet Past Med/Surg History Medical History (Updated 03/02/22 @ 11:36 by Floresita Graham PA-C) Atrial fibrillation with RVR Benign essential hypertension BPH (benign prostatic hyperplasia) FLORES (dyspnea on exertion) DVT (deep venous thrombosis) Dyspnea Hydrocephalus Obstructive sleep apnea PAF (paroxysmal atrial fibrillation) Pulmonary embolism Right lumbar radiculopathy Umbilical hernia Surgical History History of cholecystectomy History of incisional hernia repair Family History Mother Breast cancer Hypertension Father COPD (chronic obstructive pulmonary disease) Grandmother (Maternal) Cancer Grandfather Stroke Denies family history of Rheumatoid arthritis Sudden SIDS (sudden syndrome) Ovarian cancer Prostate cancer Diabetes Deep vein thrombosis Osteoporosis Coronary heart disease Dyslipidemia Cerebral aneurysm Alzheimer disease Bipolar disorder Clotting disorder Crohn's disease Dementia Depression Heart disease Kidney disease Myocardial infarction Osteoarthritis Schizophrenia Congenital kidney disease Gestational diabetes Lung cancer Colorectal cancer Pulmonary embolism Lung disease Ulcerative colitis Colonic polyp Asthma Cystic kidney disease Social History Smoking Status: Never smoker Second Hand Exposure: No; Do You Dip or Chew Tobacco: No; Tobacco Cessation Education Requested by Patient: No Hx Alcohol Use: Yes Alcohol type: beer Hx Substance Use: No Preferred Language: Macanese Communication Ability: Effective Visual Impairment: No Limitations Hearing Ability: Normal Senior Enlisted Advisor Required: No Beliefs That Will Affect Care: None marital status: Single Current Living Situation: Alone current occupational status: employed current occupation: [employer] Other Information That Helps Us Care for You: No Feels Safe at Home: Yes Safety Concerns: Feels Safe At This Time Childhood Exposure to Second-Hand Smoke: Yes caffeine: Yes Dental Care, Regularly: Yes Physical Activity Frequency: Does not Exercise Seatbelt Use: sometimes Sunscreen Use: No Assistive Devices: Glasses Review of Systems Review of Systems: Constitutional: Ongoing dizziness, lightheadedness without any falls, unchanged from baseline; no fever/chills, weakness, fatigue, myalgias, anorexia, night sweats Eyes: No diplopia, no worsening or blurred vision ENT: normal hearing, no trouble swallowing Respiratory: Dry cough cough; no sputum, dyspnea at rest or on exertion Cardiovascular: No chest pain, tightness or palpitations Abdomen: No pain, nausea, vomiting, diarrhea or constipation : Denies dysuria, hematuria, increased urgency/frequency, urinary retention Musculoskeletal: No joint pain, calf pain, swelling Neurologic: No weakness, numbness/tingling, or balance problems Psychiatric: No anxiety or depression Skin: No rash or itch Physical Exam Physical Exam: General: awake, alert, no apparent distress Head: Normocephalic, atraumatic ENT: PERRL, EOMI, no pharyngeal exudate, mucous membranes moist Chest: Clear to auscultation, on room air, no adventitious breath sounds Cardiac: Regular rate and rhythm, no murmur, no JVD, normal peripheral pulses, good capillary refill Abdominal: NABS x 4 quadrants, soft, nontender to palpation, no rebound, guarding or tenderness Extremities: Normal inspection, no peripheral edema or erythema, calfs nontender to palpation Psych: Normal mood and affect Neuro: AAO x 3, strength intact bilaterally and rated 5/5, no motor deficits, speech is clear, no peripheral sensory deficits Skin: no rash or erythema Results & Data Results & Data ([facility]) Vital Signs (Past 12 Hours) Vital Signs Temp Pulse Pulse Resp BP BP Pulse Ox 03/02/22 10:54 83 18 90/49 L 97 03/02/22 10:15 73 20 137/80 94 03/02/22 09:33 78 22 108/73 99 03/02/22 08:39 98/59 L 03/02/22 08:38 79 16 87/58 L 97 03/02/22 07:11 36.8 C 114 H 18 104/71 95 Laboratory Results Abnormal lab results 03/02/22 03/02/22 03/02/22 Range/Units 07:25 07:25 07:25 RBC 4.68 L (4.7-6.1) M/uL Lymph # (Auto) 0.93 L (1.2-3.4) K/uL [place] # (Auto) 0.79 H (0.11-0.59) K/uL Immature Gran # (Auto) 0.03 H (0.00-0.02) K/uL PT 12.2 H (9.0-12.0) Seconds INR 1.2 H (0.9-1.1) Glucose 153 H (70-99(Fasting)) mg/dl Ur Specific [place] (1.000-1.030) SARS-CoV-2, RNA, NAAT (NEGATIVE) 03/02/22 03/02/22 Range/Units 07:40 09:25 RBC (4.7-6.1) M/uL Lymph # (Auto) (1.2-3.4) K/uL [place] # (Auto) (0.11-0.59) K/uL Immature Gran # (Auto) (0.00-0.02) K/uL PT (9.0-12.0) Seconds INR (0.9-1.1) Glucose (70-99(Fasting)) mg/dl Ur Specific [place] > 1.045 H (1.000-1.030) SARS-CoV-2, RNA, NAAT POSITIVE A* (NEGATIVE) Diagnostic Findings Head CTA 03/02/22 07:31 CT angio head wo/w CLINICAL HISTORY: sudden onset headache, ataxia COMPARISON STUDY: Head CT February 15, 2020. MRI of the brain March 09, 2020. TECHNIQUE: Unenhanced and arterial phase imaging of the head was performed. Intravenous injection of 120 cc Optiray 320 IV was uneventful. Sagittal and coronal reconstructions were viewed as well as maximal intensity projections on an independent 3-D workstation. Automated exposure control was utilized for the study. A dose lowering technique was utilized adhering to the principles of ALARA. FINDINGS: No acute intracranial hemorrhage, midline shift or mass effect is present. Moderate dilatation of the lateral and third ventricles is unchanged since head CT of February 15, 2020 and MRI of March 09, 2020. Forefoot was normal in caliber. White matter hypodensities are unchanged. Basal cisterns are patent. There are no extra-axial collections. The appearance of the brain is unchanged. No findings to suggest acute dural sinus thrombosis or acute territorial infarct. The bilateral M1, M2, A1 and A2 segments are patent. There is no central vessel occlusion. There is mild atherosclerotic plaque within the bilateral cavernous carotids without stenosis. The posterior circulation is also intact. There may be mild stenosis of the bilateral P1 segments. There is no intracranial aneurysm. There is no dissection within the intracranial vessels. Major dural sinuses are patent. IMPRESSION: 1. No acute intracranial hemorrhage or mass effect. 2. No central vessel occlusion or intracranial aneurysm. 3. Moderate dilatation of the lateral and third ventricles suggestive of hydrocephalus. However, this is unchanged since prior head CT of February 15, 2020 and MRI of March 09, 2020. Therefore, the clinical significance of this finding is uncertain. ACT 112: Negative or not required by law. Electronically signed by: Herbert Bhatti M.D. 03/02/2022 8:46 AM Neck CTA 03/02/22 07:31 CT angio neck with con CLINICAL HISTORY: sudden onset headache, ataxia TECHNIQUE: CT angiography of the head and neck was performed following intravenous administration of iodinated contrast. Coronal and sagittal MIPS were obtained from the axial data set and were submitted for review. Automated dose lowering techniques and/or adjustment according to patient size were utilized for this examination. All measurements were calculated based on NASCET criteria. Comparison: None available at the time of this dictation. FINDINGS: CTA Neck: The aortic arch and the origins of the innominate, left subclavian, and left common carotid artery are not imaged There is no significant atherosclerotic plaque in the aortic arch or the origins of the innominate, left common carotid, and left subclavian arteries. Extensive atherosclerotic disease is seen in the bilateral carotid arteries. There is hemodynamically significant stenosis in the left internal carotid artery with greater than 70% stenosis. The right internal carotid artery demonstrates less than 70% stenosis. The vertebral arteries are codominant. IMPRESSION: Hemodynamically significant stenosis in the left internal carotid artery. Significant atherosclerotic disease without hemodynamically significant stenosis in the right. Findings can be further evaluated by carotid ultrasound. Assessment of stenosis of the internal carotid arteries is based on NASCET criteria. ACT 112: Negative or not required by law. Electronically signed by: Luis Manuel Harris M.D. 03/02/2022 8:54 AM Chest X-Ray 03/02/22 11:05 XR chest 1V portable CLINICAL HISTORY: Shortness of breath. COMPARISON STUDY: Chest CT November 16, 2020. FINDINGS: Old, healed right clavicular fracture is incidentally noted. Lung volumes are mildly diminished. There is no pneumothorax or pleural effusion. Cardiomegaly is unchanged. There is mild interstitial thickening. Mild right basilar opacity is present. IMPRESSION: 1. Low lung volumes with mild right basilar opacity that likely reflects atelectasis. 2. Cardiomegaly. Pulmonary vascular congestion without overt pulmonary edema. ACT 112: Negative or not required by law. Electronically signed by: Herbert Bhatti M.D. 03/02/2022 11:56 AM ECG Additional Comments: Atrial fibrillation Possible Inferior infarct (cited on or before 18-JAN-2020) Abnormal ECG When compared with ECG of 16-NOV-2020 22:04, No significant change was found. Upon my review, leads V1 and V2 have the appearance of atrial flutter. No ST segment or T wave changes. Code Status & VTE Plan Code Status Full code. Supervising Physician Co-Signing Physician Notes Patient seen, case reviewed including labs and images and discussed with Floresita Graham PA-C. Agree with management except as otherwise noted. At bedside patient is in no acute distress, upper and lower extremity strength 5/5 without deficit, lungs are grossly clear, skin is warm and dry. Orthostatic hypotension - In setting of COVID - Hold cymbalta - Losartan/hctz/dilt held on admit Hx PE - On Apixaban 5mg BID - by report no missed doses COVID positive - Vaccinated No leukocytosis, hemoglobin 15.2 INR 1.2 D-dimerpending CRP pending Sodium normal, potassium normal, creatinine 1.39 with clearance greater than 60 BSG 153 Magnesium 1.7 No transaminitis HS troponin normal on admit UA bland Carotid stenosis - CTA Neck: The aortic arch and the origins of the innominate, left subclavian, and left common carotid artery are not imaged There is no significant atherosclerotic plaque in the aortic arch or the origins of the innominate, left common carotid, and left subclavian arteries. Extensive atherosclerotic disease is seen in the bilateral carotid arteries. There is hemodynamically significant stenosis in the left internal carotid artery with greater than 70% stenosis. The right internal carotid artery demonstrates less than 70% stenosis. The vertebral arteries are codominant. CT-H: 1. No acute intracranial hemorrhage or mass effect. 2. No central vessel occlusion or intracranial aneurysm. 3. Moderate dilatation of the lateral and third ventricles suggestive of hydrocephalus. However, this is unchanged since prior head CT of February 15, 2020 and MRI of March 09, 2020. Therefore, the clinical significance of this finding is uncertain. -Patient does endorse an episode of complete right lower extremity strength loss without any left-sided including left leg weakness or associated lightheadedness and dizziness. Reports he had not told prior providers about this, symptoms lasted for approximately half hour and then improved. No associated numbness/tingling or sensation of the leg falling asleep, just felt like he had no strength in it and "like it was nailed to the floor ". Potentially concerning for TIA sx. Extensive atherosclerotic disease in bilateral carotid arteries. Hemod ynamically significant stenosis in left ICA with greater than 70% stenosis, right ICA with <70% stenosis Intensive medical management is indicated. Pt reports statin intolerant 2/2 myalgias. ?PCSK9 as outpatient. ASA 81mg daily, Dm control, smoking cessation Carotid ultrasound pending to better characterize degree of stenosis. Discussed w/ vascular as potentially symptomatic stenosis, recommened for outpt f/u and MM at this time PG Care Time/CCT Total # of Minutes Spent Total Time Spent with Patient: Total time spent is greater than 50% in coordination of care (as documented) at patient's floor/unit and/or counseling patient: Coding Level of Care Code INT OBSERVATION CARE 50M LVL 2 Diagnoses COVID-19 U07.1 Atrial fibrillation I48.91 Atrial fibrillation type: unspecified Benign essential hypertension I10 Carotid stenosis I65.29 Hypotension I95.9 Hydrocephalus G91.9 Right lumbar radiculopathy M54.16 (1) Atrial fibrillation Atrial fibrillation type: unspecified Qualified Code(s): I48.91 - Unspecified atrial fibrillation
--- NOTE | 2022-03-02 11:58 | XRay Report ---
XR chest 1V portable CLINICAL HISTORY: Shortness of breath. COMPARISON STUDY: Chest CT November 16, 2020. FINDINGS: Old, healed right clavicular fracture is incidentally noted. Lung volumes are mildly dimini shed. There is no pneumothorax or pleural effusion. Cardiomegaly is unchanged. There is mild intersti tial thickening. Mild right basilar opacity is present. IMPRESSION: 1. Low lung volumes with mild right basilar opacity that likely reflects atelectasis. 2. Cardiomegaly. Pulmonary vascular congestion without overt pulmonary edema. ACT 112: Negative or not required by law. Electronically signed by: Herbert Bhatti M.D. 03/02/2022 11:56 AM
[2022-03-02 12:12] LABS: D Dimer 330 ug/L FEU (0-500)
--- NOTE | 2022-03-02 12:37 | Electrocardiogram Report ---
Test Reason : Blood Pressure : / mmHG Vent. Rate : 077 BPM Atrial Rate : 416 BPM P-R Int : 000 ms QRS Dur : 078 ms QT Int : 380 ms P-R-T Axes : 000 019 065 degrees QTc Int : 430 ms Atrial fibrillation Possible Inferior infarct (cited on or before 18-JAN-2020) Abnormal ECG When compared with ECG of 16-NOV-2020 22:04, No significant change was found Confirmed by Davey Grimes ([id number]) on 03/02/2022 12:36:49 PM Referred By: REFERRED SELF Confirmed By:Davey Grimes
[2022-03-02] MEDS ORDERED: BENZONATATE 100 MG CAPSULE PO PRN (13:41)
[2022-03-02] MEDS ORDERED: ONDANSETRON INJ 2 MG/ML 2 ML VIAL IV PRN (13:41)
[2022-03-02] MEDS ORDERED: COUGH DROP (SUGAR FREE) LOZ 24 LOZ/1 BOX BUCCAL PRN (13:41)
[2022-03-02] MEDS ORDERED: POLYETHYLENE (MIRALAX) 17 GM PACK PO PRN (13:41)
[2022-03-02] MEDS: LACTATED RINGER'S 1,000 ML IV SCH (13:56)
[2022-03-02] MEDS: ACETAMINOPHEN 325 MG TAB PO PRN (21:27)
[2022-03-02] MEDS: APIXABAN 5 MG TABLET PO SCH (21:27)
[2022-03-02] MEDS ORDERED: LACTATED RINGER'S 500 ML IV ONE (22:52)
[2022-03-03] MEDS: MELATONIN 3 MG TAB PO PRN ×2 (02:08→21:40)
[2022-03-03] MEDS: LACTATED RINGER'S 1,000 ML IV SCH (02:12)
--- NOTE | 2022-03-03 07:35 | Magnetic Resonance Report ---
MRI OF THE BRAIN WITHOUT CONTRAST CLINICAL HISTORY: Headache. Altered mental status. r/o CVA COMPARISON STUDY: Head CT and CTA of the head March 02, 2022. MRI of the brain March 09, 2020. TECHNIQUE: Utilizing a 1.5 Sandy magnet and dedicated coil, multiplanar, multiecho imaging of the bra in was performed without IV contrast. FINDINGS: There are no foci of restricted diffusion to suggest acute infarct. No acute intracranial h emorrhage, midline shift or mass effect is present. Moderate dilatation of the lateral and third vent ricles is unchanged since MRI of March 09, 2020. Size of the fourth ventricle is normal. No intracrani al masses identified on this unenhanced examination. Extensive white matter T2 hyperintense foci are unchanged. The appearance of the brain is unchanged. Calvarial signal is within normal limits. Small air-fluid level within left maxillary sinus is noted. There is moderate ethmoid sinus mucosal thicken ing. Small mucous retention cysts within the right maxillary sinus is noted. IMPRESSION: 1. No acute intracranial findings. 2. Moderate dilatation of the lateral and third ventricles suggestive of hydrocephalus. However, this is unchanged since prior MRI March 09, 2020 and therefore the clinical significance of this finding i s uncertain. 3. No change in appearance of the brain. 4. Small air-fluid level within the left maxillary sinus. Moderate ethmoid sinus mucosal thickening. ACT 112: Negative or not required by law. Electronically signed by: Herbert Bhatti M.D. 03/03/2022 7:34 AM
[2022-03-03] MEDS: APIXABAN 5 MG TABLET PO SCH ×2 (07:55→21:40)
[2022-03-03] MEDS: ASPIRIN 81 MG ECTAB PO SCH (07:55)
[2022-03-03 11:09] LABS: Basophils # (auto) 0.06 K/uL (0-0.2); Eosinophils # (auto) 0.03 K/uL (0-0.5); Eosinophils % (auto) 0.5 %; Hematocrit (blood only) 42.9 % (42-52); Hemoglobin 14.8 g/dL (14.0-18.0); Immature Granulocytes # (auto) 0.01 K/uL (0.00-0.02); Immature Granulocytes % (auto) 0.2 %; Lymphocytes # (auto) 1.45 K/uL (1.2-3.4); Lymphocytes % (auto) 23.2 %; Mean Corpuscular Hgb Conc 34.5 g/dL (32-36); Mean Corpuscular Volume 92.9 fL (80-100); Mean Platelet Volume 10.4 fL (7.4-10.4); Monocytes # (auto) 0.93 K/uL (0.11-0.59); Monocytes % (auto) 14.9 %; Neutrophils # (auto) 3.78 K/uL (1.4-6.5); Neutrophils % (auto) 60.2 %; Platelet Count 208 K/uL (130-400); RDW Coefficient of Variation 13.4 % (11.5-14.5); RDW Standard Deviation 45.6 fL (36.4-46.3); Red Blood Count 4.62 M/uL (4.7-6.1); White Blood Count 6.26 K/uL (4.8-10.8)
[2022-03-03 11:28] LABS: Est GFR (African American) 82.1 ml/min; Potassium 3.7 mmol/L (3.5-5.1)
[2022-03-03 11:29] LABS: BUN Creatinine Ratio 15.6 (10-20); Calcium 9.5 mg/dl (8.5-10.1); Creatinine Clr Calc Pharmacy 78.6 ml/min; Est GFR (Non-African American) 70.9 ml/min
[2022-03-03 12:10] LABS: Lyme Ab IgG w/WB Rflx Negative (Negative); Lyme Ab IgM w/WB Rflx Negative (Negative)
--- NOTE | 2022-03-03 12:50 | Hospitalist Progress Note ---
Date of Service March 03, 2022 Assessment & Plan (1) COVID-19: Plan: Fever, COVID-19 positive Patient reports runny nose began 14 days ago, but after discussion thinks his headache and cough present 4 days ago No known positive COVID contacts Vaccinated Initially thought to be on day 14 of symptoms, although it sounds like his cough/headache has been acutely worse for about 4 days.? Initial allergies and subsequent worsening with COVID Febrile overnight into 03/03 Lyme negative Anaplasma negative CRP 1.86 Procalcitonin normal No transaminitis Creatinine normal No hypoxia Given fevers and marked start of COVID symptoms additional work-up obtained including blood cultures and Lyme/Anaplasma which were negative as noted. UA bland on admission. If persistent fevers and not clinically improving, surveillance CT Noncon 03/04 DDx includes superimposed bacterial sinusitis, patient does persist with rhinosinusitis and congestion which has not improved in 10 days, new fever, no clear double sickening. Will cover empirically with doxycycline 100 mg twice daily. (2) Hypotension: Plan: - Suspect 2/2 acute illness with decreased p.o. intake. No signs of bacterial infection as above, is COVID-positive Improved following NSS bolus and maintenance fluids Losartan hypertension/diltiazem held Normotensive 03/03 (3) Carotid stenosis: Plan: - Noted on neck CTA, > 70% stenosis of left ICA. With a reported episode 1 year ago where he was unable to lift his right leg, resolved completely after 30 minutes. Had not told anyone or pursued a workup at that time. Suspicious for TIA. No recurrence or other episodes, denies ever experiencing visual changes/loss, numbness, tingling, speech difficulties. -Discussed with vascular on admission, may have outpatient follow-up no acute intervention recommended at this time Brain MRI with no acute intracranial findings. Chronic stable moderate di lation of lateral and third ventricles similar to February 2020. Small air-fluid level in left maxillary sinus. - Patient reports intolerance to multiple statins - Patient will need to be started on ASA 81 daily, as outpatient should be trialed on other cholesterol medications. (4) Atrial fibrillation: Plan: - Hold diltiazem for today given hypotension. - Continue Eliquis 5 mg BID. Reports he has not missed any doses. - Given history of PEs, and with COVID-19 infection, obtain D-dimer--> 330. No need for further imaging. (5) Benign essential hypertension: Plan: - Held losartan/HCTZ as well as Diltiazem and Cymbalta. (6) Right lumbar radiculopathy: Plan: - Received epidural spine injection on 02/09. - Prescribed Cymbalta, per pt takes this on prn basis. - Holding for now as it can contribute to orthostatic hypotension (7) Hydrocephalus: Plan: - Seen on head CTA today, unchanged from imaging in 2019. - No clinical symptoms at this time. Plan: - Obs on med/tele. - SCDs, Eliquis for VTE ppx. - Full code. Admission and Anticipated Discharge Date Admission Date: March 02, 2022 Subjective Has felt cold overnight and notes that the cold air is chilly, and is aware he had a fever but did not have shaking chills. Intermittent cough, no shortness of breath at rest. Denies chest pain. No nausea/vomiting/diarrhea/stomach upset. Endorses a slight rash where he had some poison shad improving, otherwise denies skin changes. Review of Systems Review of Systems: All systems reviewed & are unremarkable except as noted in Subjective Physical Exam Physical Exam: General: A&Ox3. NAD. Cooperative. HEENT: Atraumatic, normocephalic. Pulm: CTAB A&P. -wheezes, -rales, -rhonchi. Symmetrical chest rise. No increase in work of breathing. No respiratory distress. Cardiac: Intermittently tachycardic, -mrg. Radial pulses intact and symmetrical. Abdominal: Nontender, nondistended, soft. BS present. Extremities: Right antecubital fossa with raised slightly erythematous rash with a linear streak consistent with contact dermatitis, improving per patient. No surrounding or spreading erythema. Results & Data Results & Data ([facility]) Vital Signs (Past 12 Hours) Vital Signs Temp Pulse Pulse Resp BP Pulse Ox 03/03/22 04:00 37.7 C H 114 H 20 126/77 98 03/03/22 01:30 110 H 03/03/22 01:02 37.4 C PG Care Time/CCT Total # of Minutes Spent Total Time Spent with Patient: Total time spent is greater than 50% in coordination of care (as documented) at patient's floor/unit and/or counseling patient: Coding Level of Care Code 09642 Subseq Obs Care Lvl 2 Diagnoses COVID-19 U07.1 Hypotension I95.9 Carotid stenosis I65.29 Atrial fibrillation I48.91 Atrial fibrillation type: unspecified Benign essential hypertension I10 Right lumbar radiculopathy M54.16 Hydrocephalus G91.9 (1) Atrial fibrillation Atrial fibrillation type: unspecified Qualified Code(s): I48.91 - Unspecified atrial fibrillation
[2022-03-03] MEDS: DOXYCYCLINE HYCLATE 100 MG in DEXTROSE 5% 100 ML IV SCH (14:47)
[2022-03-03] MEDS: ACETAMINOPHEN 325 MG TAB PO PRN (17:22)
--- NOTE | 2022-03-03 21:30 | CT Scan Report ---
CT chest diagnostic wo con CT DOSE: 590.98 mGycm CLINICAL HISTORY: 67 years-old Male with cough, fever, COVID. Acute cough with fever. COVID Positive . TECHNIQUE: Multiaxial CT images of the chest were performed without contrast. A dose lowering techni que was utilized adhering to the principles of ALARA. COMPARISON: CTA chest 11/16/2020 FINDINGS: Unremarkable thyroid. Generally stable appearance of the mediastinal, hilar and axillary ly mphadenopathy. Moderate cardiomegaly with extensive coronary artery calcifications. Atherosclerosis o f the thoracic aorta without aneurysm. Trace right pleural effusion. No pneumothorax, overt pulmonary edema or lobar airspace consolidation typical for pneumonia. Unchanged mild central bronchial wall thickening. Cholecystectomy. No acute process of the imaged upper abdomen. Unremarkable soft tissues. There is no acute fracture. IMPRESSION: 1. Trace right pleural effusion. No airspace consolidation typical for pneumonia. 2. Stable mediastinal, hilar and axillary adenopathy. 3. Cardiomegaly. 4. Cholecystectomy. ACT 112: Negative or not required by law. Electronically signed by: Tai Santillan M.D. 03/03/2022 9:28 PM
[2022-03-04] MEDS: DOXYCYCLINE HYCLATE 100 MG in DEXTROSE 5% 100 ML IV SCH ×2 (02:30→13:16)
[2022-03-04 08:44] LABS: BUN Creatinine Ratio 15.9 (10-20); Calcium 9.5 mg/dl (8.5-10.1); Creatinine Clr Calc Pharmacy 75.4 ml/min; Est GFR (African American) 78.6 ml/min; Est GFR (Non-African American) 67.8 ml/min; Potassium 3.7 mmol/L (3.5-5.1)
[2022-03-04 08:55] LABS: Basophils # (auto) 0.04 K/uL (0-0.2); Basophils % (auto) 0.7 %; Eosinophils # (auto) 0.17 K/uL (0-0.5); Hematocrit (blood only) 44.5 % (42-52); Hemoglobin 15.5 g/dL (14.0-18.0); Immature Granulocytes # (auto) 0.02 K/uL (0.00-0.02); Immature Granulocytes % (auto) 0.3 %; Lymphocytes # (auto) 1.48 K/uL (1.2-3.4); Lymphocytes % (auto) 25.8 %; Mean Corpuscular Hgb Conc 34.8 g/dL (32-36); Mean Corpuscular Volume 91.8 fL (80-100); Mean Platelet Volume 10.6 fL (7.4-10.4); Monocytes # (auto) 0.93 K/uL (0.11-0.59); Monocytes % (auto) 16.2 %; Neutrophils # (auto) 3.09 K/uL (1.4-6.5); Platelet Count 196 K/uL (130-400); RDW Coefficient of Variation 13.1 % (11.5-14.5); RDW Standard Deviation 43.9 fL (36.4-46.3); Red Blood Count 4.85 M/uL (4.7-6.1); White Blood Count 5.73 K/uL (4.8-10.8)
[2022-03-04] MEDS: APIXABAN 5 MG TABLET PO SCH ×2 (09:09→21:07)
[2022-03-04] MEDS: ASPIRIN 81 MG ECTAB PO SCH (09:10)
[2022-03-04] MEDS: ACETAMINOPHEN 325 MG TAB PO PRN (09:10)
[2022-03-04] MEDS: dexAMETHasone 6 MG in SYRINGE 0 ML IV SCH (12:00)
--- NOTE | 2022-03-04 13:43 | Hospitalist Progress Note ---
Date of Service March 04, 2022 Assessment & Plan (1) COVID-19: Plan: Fever, COVID-19 positive Patient reports runny nose began 14 days ago, but after discussion thinks his headache and cough present 4 days ago No known positive COVID contacts Vaccinated Initially thought to be on day 14 of symptoms, although it sounds like his cough/headache has been acutely worse for about 4 days, did not have a home test prior to presentation at initial symptom development. Given inflammatory markers, COVID positivity, and prolonged illness will trial Dex course Febrile overnight into 03/03 Lyme negative Anaplasma negative CRP 1.86 up trended to 4.8. Procalcitonin normal No transaminitis Creatinine normal No hypoxia Given fevers and marked start of COVID symptoms additional work-up obtained including blood cultures and Lyme/Anaplasma which were negative as noted. UA bland on admission. CT chest Noncon did not show superimposed pneumonia or acute abnormality Initial MRI imaging with air/fluid levels of the sinuses, and patient did have preceding nasal symptoms which worsened and then developed a headache.? Superimposed bacterial sinusitis, covered empirically with Doxy (2) Hypotension: Plan: - Suspect 2/2 acute illness with decreased p.o. intake. No signs of bacterial infection as above, is COVID-positive Improved following NSS bolus and maintenance fluids Losartan hypertension/diltiazem held, patient blood pressure slightly high 03/04 and diltiazem resumed Normotensive 03/03 (3) Carotid stenosis: Plan: - Noted on neck CTA, > 70% stenosis of left ICA. With a reported episode 1 year ago where he was unable to lift his right leg, resolved completely after 30 minutes. Had not told anyone or pursued a workup at that time. Suspicious for TIA. No recurrence or other episodes, denies ever experiencing visual changes/loss, numbness, tingling, speech difficulties. -Discussed with vascular on admission, may have outpatient follow-up no acute intervention recommended at this time Brain MRI with no acute intracranial findings. Chronic stable moderate dilation of lateral and third ventricles similar to February 2020. Small air-fluid level in left maxillary sinus. - Patient reports intolerance to multiple statins - Patient will need to be started on ASA 81 daily, as outpatient should be trialed on other cholesterol medications. (4) Atrial fibrillation: Plan: - Diltiazem resumed - Continue Eliquis 5 mg BID. Reports he has not missed any doses. - Given history of PEs, and with COVID-19 infection, obtain D-dimer--> 330. No need for further imaging. (5) Benign essential hypertension: Plan: - Held losartan/HCTZ, diltiazem resumed (6) Right lumbar radiculopathy: Plan: - Received epidural spine injection on 02/09. - Prescribed Cymbalta, per pt takes this on prn basis. - Holding for now as it can contribute to orthostatic hypotension (7) Hydrocephalus: Plan: - Seen on head CTA today, unchanged from imaging in 2019. -Patient does have headache with his acute illness, being worked up as above. p atient notes that he did have extensive discussions with providers regarding his shunt which he had not wanted and was not felt to have been needed on his follow-up. Continue infectious treatment as above, if headache persists would have neurologic reevaluation for this, although it has been stable and unchanged in the last 2 years on imaging. Plan: - Obs on med/tele. - SCDs, Eliquis for VTE ppx. - Full code. Admission and Anticipated Discharge Date Admission Date: March 02, 2022 Subjective Fever curve downtrending. Patient continues to feel chilly. Continues to have sinus drainage, does think this has improved somewhat yesterday into today. Does continue to have intermittent headache which has been persistent, but does go away at times. Generally does not awaken him from sleep, although notes he had a headache when he woke up this morning. Tired and prefers to sleep with the lights off, denies photosensitivity at bedside. No nausea/vomiting/diarrhea. Reports he is peeing normally without pain. Review of Systems Review of Systems: All systems reviewed & are unremarkable except as noted in Subjective Physical Exam Physical Exam: General: A&Ox3. NAD. Cooperative. HEENT: Atraumatic, normocephalic. Pupils equal and reactive to light. No nuchal rigidity. EOM intact without nystagmus. Pulm: CTAB A&P. -wheezes, -rales, -rhonchi. Symmetrical chest rise. No increase in work of breathing. No respiratory distress. Cardiac: Intermittently tachycardic, -mrg. Radial pulses intact and symmetrical. Abdominal: Nontender, nondistended, soft. BS present. Extremities: Right antecubital fossa with raised slightly erythematous rash with a linear streak consistent with contact dermatitis, similar to prior. No surrounding or spreading erythema. Results & Data Results & Data ([facility]) Vital Signs (Past 12 Hours) Vital Signs Temp Pulse Resp BP BP Pulse Ox 03/04/22 12:16 37.2 C 104 H 18 144/85 H 98 03/04/22 08:31 37.5 C 114 H 18 117/77 97 03/04/22 03:34 37.2 C 104 H 20 132/82 97 PG Care Time/CCT Total # of Minutes Spent Total Time Spent with Patient: Total time spent is greater than 50% in coordination of care (as documented) at patient's floor/unit and/or counseling patient: Coding Level of Care Code 13363 Subseq Obs Care Lvl 2 Diagnoses COVID-19 U07.1 Hypotension I95.9 Carotid stenosis I65.29 Atrial fibrillation I48.91 Atrial fibrillation type: unspecified Benign essential hypertension I10 Right lumbar radiculopathy M54.16 Hydrocephalus G91.9 (1) Atrial fibrillation Atrial fibrillation type: unspecified Qualified Code(s): I48.91 - Unspecified atrial fibrillation
[2022-03-04] MEDS ORDERED: dilTIAZem HCL 300 MG CAPCR PO SCH (14:00)
[2022-03-04] MEDS: MELATONIN 3 MG TAB PO PRN (23:05)
[2022-03-05] MEDS: DOXYCYCLINE HYCLATE 100 MG in DEXTROSE 5% 100 ML IV SCH (02:29)
[2022-03-05 07:51] LABS: Basophils # (auto) 0.01 K/uL (0-0.2); Basophils % (auto) 0.1 %; Hematocrit (blood only) 43.2 % (42-52); Hemoglobin 15.3 g/dL (14.0-18.0); Immature Granulocytes # (auto) 0.01 K/uL (0.00-0.02); Immature Granulocytes % (auto) 0.1 %; Lymphocytes % (auto) 12.8 %; Mean Corpuscular Hgb Conc 35.4 g/dL (32-36); Mean Corpuscular Volume 90.4 fL (80-100); Mean Platelet Volume 10.4 fL (7.4-10.4); Monocytes # (auto) 0.87 K/uL (0.11-0.59); Monocytes % (auto) 9.3 %; Neutrophils # (auto) 7.26 K/uL (1.4-6.5); Neutrophils % (auto) 77.7 %; Platelet Count 233 K/uL (130-400); RDW Coefficient of Variation 12.8 % (11.5-14.5); RDW Standard Deviation 42.5 fL (36.4-46.3); Red Blood Count 4.78 M/uL (4.7-6.1); White Blood Count 9.35 K/uL (4.8-10.8)
[2022-03-05 08:15] LABS: Albumin Globulin Ratio 1.5 (0.9-2); BUN Creatinine Ratio 22.5 (10-20); Bilirubin,Total 0.5 mg/dl (0.2-1.0); C Reactive Protein 2.86 mg/dl (0-0.5); Calcium 10.2 mg/dl (8.5-10.1); Est GFR (Non-African American) 76.8 ml/min; Globulin 2.7 gm/dl (2.5-4.0); Potassium 4.3 mmol/L (3.5-5.1); Total Protein 6.7 gm/dl (6.0-8.3)
[2022-03-05] MEDS: dexAMETHasone 6 MG in SYRINGE 0 ML IV SCH (08:56)
[2022-03-05] MEDS: APIXABAN 5 MG TABLET PO SCH (08:56)
[2022-03-05] MEDS: ASPIRIN 81 MG ECTAB PO SCH (08:56)
--- NOTE | 2022-03-05 11:16 | Discharge Summary ---
Date of Service March 05, 2022 Admission HPI Per Admitting Provider Cleve Diez is a 67-year-old male with PMH PE A. fib in 2020 now on Eliquis, hypertension, and lumbar back pain who presents today with complaints of headache. He has had a lingering headache for the past 14 days, general throughout his head just feels like a "normal headache for him ". Is been taking Tylenol intermittently with resolution of this temporarily. He is also developed a runny nose and occasional dry cough with this. He was set to see his PCP yesterday for this, however the appointment was canceled for reasons unknown to patient. No other associated symptoms, he does have episodes of lightheaded ness and dizziness which have been ongoing for but seems like years now. There have not been any worse since development of of symptoms. He does have both his COVID vaccination and booster, however booster was >3 months ago. No known sick contacts. Has no difficulty breathing, no chest pain, or episodes of shortness of breath. In ED, hypotensive with SBP 80-90s, otherwise VS within normal limits. COVID-19 positive. D-dimer 330. Labs largely unremarkable. Pro-Darrel, CRP, lactate pending. Head CTA with no acute intracranial hemorrhage or mass effect, no central vein occlusion, or aneurysms. Moderate dilatation of the lateral and third ventricles suggestive of hydrocephalus is unchanged since prior imaging in February 2020. Neck CTA with > 70% stenosis of the left ICA, < 70% stenosis in right ICA. Principal Diagnosis COVID Suspected superimposed bacterial sinusitis Carotid stenosis Discharge Exam General: A&Ox3. NAD. Cooperative. HEENT: Atraumatic, normocephalic. Pupils equal and reactive to light. No nuchal rigidity. EOM intact without nystagmus. Pulm: CTAB A&P. -wheezes, -rales, -rhonchi. Symmetrical chest rise. No increase in work of breathing. No respiratory distress. Cardiac: Intermittently tachycardic, -mrg. Radial pulses intact and symmetrical. Abdominal: Nontender, nondistended, soft. BS present. Extremities: Warm, dry. Ambulates independently in the room Discharge Data Allergies Allergy/AdvReac Type Severity Reaction Status Date / Time Mcjluou-BZT-YsY Reductase AdvReac Mild MUSCLE Verified 03/02/22 07:41 Inhibitor ACHES [Rrvutmn-Uik-Kdz Reductase Inhibitor] ropinirole AdvReac excessive Verified 03/02/22 07:41 sedation Consultations 03/02/22 11:05 ED Decision to Admit Stat Ordered Studies 03/02/22 07:31 CT angio head wo/w Stat CT angio neck with con Stat 03/02/22 13:41 MR brain wo con Routine 03/03/22 17:27 CT chest diagnostic wo con Routine Hospital Course (1) COVID-19: Moderate dilation of the lateral and third ventricles suggestive of hydrocephalus was present. This was unchanged in the same as compared to his MRI on March 09, 2020. CTA of the neck showed hemodynamically significant stenosis in the left internal carotid artery greater than 70%, and stenosis less than 70% in the right internal carotid artery. Case was discussed with vascular on admission who did not recommend acute surgical intervention, but who would s ee the patient as an outpatient in approximately 2 weeks. Aspirin was added for stroke prophylaxis. Imaging did show air-fluid level in the sinuses, and patient did endorse worsening of his sinus symptoms 4 days ago after initial symptom onset 14 days ago with some pressure and discomfort potentially concerning for superimposed sinusitis. He was treated with doxycycline for sinusitis, and given a uptrending CRP and COVID-positive result with general unwellness was treated with dexamethasone 6 mg daily. He rapidly clinically improved following Dex/Doxy treatment and was discharged to outpatient follow- up. To do as outpatient: 1. Complete 8 more days of dexamethasone 6 mg daily 2. Complete 3 additional days of doxycycline 100 mg p.o. twice daily for suspected superimposed sinusitis 3. With vascular surgery as outpatient for CEA eval/carotid stenosis; continue aspirin 81 mg daily for stroke prophylaxis 4. Continue outpatient surveillance of moderate ventricular dilation, stable from prior imaging 5. Patient reports intolerance to multiple statins in the past, given CVA and ?PCSK9 as outpatient Cleve is a 67-year-old male who presented with headache, low blood pressure, an d feelings of general unwellness for 14 days which acutely worsened 4 days prior to admission and he was COVID-positive on admission. CT and MRI of the head/brain did not show any strokelike pathology, however Fever, COVID-19 positive Patient reports runny nose began 14 days ago, but after discussion thinks his headache and cough present 4 days ago No known positive COVID contacts Vaccinated Initially thought to be on day 14 of symptoms, although it sounds like his cough/headache has been acutely worse for about 4 days, did not have a home test prior to presentation at initial symptom development. Given inflammatory markers, COVID positivity, and prolonged illness will trial Dex course Febrile overnight into 03/03 Lyme negative Anaplasma negative CRP 1.86 up trended to 4.8. Procalcitonin normal No transaminitis Creatinine normal No hypoxia Given fevers and marked start of COVID symptoms additional work-up obtained including blood cultures and Lyme/Anaplasma which were negative as noted. UA bland on admission. CT chest Noncon did not show superimposed pneumonia or acute abnormality Initial MRI imaging with air/fluid levels of the sinuses, and patient did have preceding nasal symptoms which worsened and then developed a headache.? Superimposed bacterial sinusitis, covered empirically with Doxy Improved and near baseline at time of discharge (2) Hypotension: - Suspect 2/2 acute illness with decreased p.o. intake. No signs of bacterial infection as above, is COVID-positive Improved following NSS bolus and maintenance fluids Losartan hypertension/diltiazem held, patient blood pressure slightly high 03/04 and diltiazem resumed Normotensive 03/03 since resumed and patient remained normotensive (3) Carotid stenosis: - Noted on neck CTA, > 70% stenosis of left ICA. With a reported episode 1 year ago where he was unable to lift his right leg, resolved completely after 30 minutes. Had not told anyone or pursued a workup at that time. Suspicious for TIA. No recurrence or other episodes, denies ever experiencing visual changes/loss, numbness, tingling, speech difficulties. -Discussed with vascular on admission, may have outpatient follow-up no acute intervention recommended at this time Brain MRI with no acute intracranial findings. Chronic stable moderate dilation of lateral and third ventricles similar to February 2020. Small air-fluid level in left maxillary sinus. - Patient reports intolerance to multiple statins - Patient will need to be started on ASA 81 daily, as outpatient should be trialed on other cholesterol medications. (4) Atrial fibrillation: - Diltiazem resumed - Continue Eliquis 5 mg BID. Reports he has not missed any doses. - Given history of PEs, and with COVID-19 infection, obtain D-dimer--> 330. No need for further imaging. (5) Benign essential hypertension: - Held losartan/HCTZ, diltiazem resumed (6) Right lumbar radiculopathy: - Received epidural spine injection on 02/09. - Prescribed Cymbalta, per pt takes this on prn basis. - Holding for now as it can contribute to orthostatic hypotension (7) Hydrocephalus: - Seen on head CTA today, unchanged from imaging in 2020. -Patient does have headache with his acute illness, improved with treatment above - Obs on med/tele. - SCDs, Eliquis for VTE ppx. - Full code. Total Time Total Time Spent Total Time Spent (In Minutes): Time spend day of discharge 45 minutes including direct patient care, documentation, review of labs and images, and coordination of care. Discharge Plan Discharge Items Patient Disposition: Home - Self-Care Reason For Visit: COVID, HYPOTENSIVE Discharge Diagnosis: COVID Bacterial Sinusitis Activity: Resume your previous activity Non-emergency contact: Primary Care Provider Call non-emergency contact if: you have any medication questions, your symptoms worsen and your pain is not controlled Follow-up/Referrals: Walter Herr MD [Primary Care Provider] - David Garvin MD [Physician] - 03/28/22 2:45 pm Diet: Heart Healthy Addtl Attending Provider Instructions: You were seen in the hospital for headache cough low blood pressure, and general feelings of unwellness. You are found to be COVID-positive. Your symptoms began around 14 days prior to presentation, although they had worsened in the 4 days preceding admission including worsened headache.An MRI of your brain and CT scan with contrast of your head and neck did not show any evidence of stroke. You have moderate dilation of your lateral and third ventricles which is unchanged since your prior CAT scan and MRI in 2019. You report that you have had follow-up for this, and have deferred shunting in the past. Is recommended to continue outpatient follow-up for surveillance of this. Air-fluid levels of the maxillary sinuses were noted with symptoms potentially concerning for a superimposed sinusitis/sinus infection. The CT scan of your neck with contrast did show stenosis (narrowing) of your internal carotid artery on the left. This was discussed with vascular surgery, and a follow-up appointment has been scheduled with them as an outpatient as noted above. In the meantime you have been started on a baby aspirin to help protect against strokes. Please take aspirin 81 mg by mouth daily. You had elevated inflammatory markers, called CRP, and were placed on steroids for COVID/post-COVID symptoms and an antibiotic for concern of superimposed sinusitis. You clinically improved and your headache had improved at time of discharge. You have been prescribed a course of steroids, dexamethasone. Please take dexamethasone 6 mg by mouth daily for 8 more days. You have been prescribed an antibiotic, doxycycline for possible superimposed sinusitis. Please take doxycycline 100 mg twice daily for 3 more days to complete a course of treatment. Doxycycline can be rough on the stomach, please drink a full glass of water when you take this pill. Doxycycline will also make your skin very sensitive to a type of sunburn called photodermatitis, please avoid prolonged direct contact in the sun/exposure that might cause normal sunburn as this can be very severe while taking this antibiotic. Follow-up is being scheduled with your primary care provider Dr. Herr. You should be seen within 1 to 2 weeks. If you develop any new or worsening symptoms including fever, chills, sweats, chest pain, chest pressure, difficulty breathing, uncontrolled nausea/vomiting, rash, wheezing, passing out or nearly passing out, bleeding, black/bloody bowel movements, or other new or concerning symptoms please call your primary care physician, or call 911 for re-evaluation in the emergency department if you are very concerned. Pending Studies at Discharge: No Stand-Alone Forms: My [facility] [employer], Work/School Release, Smoking Cessation Medications and DC Order Prescriptions: New aspirin 81 mg Tablet,Delayed Release (Dr/Ec) 81 mg PO DAILY Qty: 30 RF: 0 doxycycline hyclate 100 mg capsule 100 mg PO BID 3 Days Qty: 6 RF: 0 dexamethasone 6 mg tablet 6 mg PO DAILY Qty: 8 RF: 0 Continued Eliquis 5 mg tablet 5 mg PO BID Qty: 180 RF: 3 multivitamin [Daily Multi-Vitamin] tablet 1 tab PO QAM RF: 0 diltiazem HCl 300 mg capsule,extended release 24 hr 300 mg PO DAILY@1600 RF: 0 duloxetine 60 mg capsule,delayed release(DR/EC) 60 mg PO DAILY RF: 0 losartan-hydrochlorothiazide 100-12.5 mg tablet 1 tab PO QAM RF: 0 acetaminophen [Tylenol Arthritis] 650 mg Tablet Extended Release 650 mg PO Q12H PRN (Reason: Pain) RF: 0 Discharge Orders: Discharge Order (Routine); Ordered 03/05/22 Ordered By: Dean Hidalgo Admission Data Admit Date/Time: 03/04/22 16:33 Attending Provider: Dean Hidalgo Admit Provider: Dean Hidalgo Primary Care Provider: Walter Herr Other Providers: Dean Hidalgo Coding Level of Care Code D/C DAY MANAGEMENT >30 MINS Diagnoses COVID-19 U07.1 Hypotension I95.9 Carotid stenosis I65.29 Atrial fibrillation I48.91 Atrial fibrillation type: unspecified Benign essential hypertension I10 Right lumbar radiculopathy M54.16 Hydrocephalus G91.9
== END 2022-03-05 12:27 | disposition home or self-care (01) ==
LOC: ED 07:03 → 2W 07:03

== ENCOUNTER 2022-04-19 05:56 | Inpatient (IN) ==
--- NOTE | 2022-04-08 10:39 | PAT Medication Instructions ---
Medication Instructions Date of Service April 08, 2022 Home Medications Medication Instructions Recorded apixaban 5 mg tablet (Eliquis) 5 mg PO BID atrial fib #180 tabs 11/26/21 diltiazem HCl 300 mg capsule,24 300 mg PO DAILY #90 caps 04/07/22 hr,extended release multivitamin (Daily Multi-Vitamin) 1 tab PO QAM apixaban 5 mg tablet (Eliquis) 5 mg PO BID atrial fib acetaminophen 650 mg tablet,extended release 650 mg PO Q12H PRN Pain duloxetine 60 mg capsule,delayed release 60 mg PO QAM losartan 100 mg-hydrochlorothiazide 12.5 mg tablet 0.5 tab PO QAM aspirin 81 mg tablet,delayed release 81 mg PO QAM diltiazem HCl 300 mg capsule,24 hr,extended release 300 mg PO DAILY Continue as directed diltiazem HCl 300 mg capsule,24 hr,extended release 300 mg PO DAILY ASK your prescriber and surgeon apixaban 5 mg tablet (Eliquis) 5 mg PO BID atrial fib aspirin 81 mg tablet,delayed release 81 mg PO QAM DO NOT take the morning of surgery multivitamin (Daily Multi-Vitamin) 1 tab PO QAM losartan 100 mg-hydrochlorothiazide 12.5 mg tablet 0.5 tab PO QAM Take morning of surgery With a small sip of water, OTHERWISE NOTHING TO EAT OR DRINK AFTER MIDNIGHT: acetaminophen 650 mg tablet,extended release 650 mg PO Q12H PRN Pain (if needed) duloxetine 60 mg capsule,delayed release 60 mg PO QAM Take evening before surgery acetaminophen 650 mg tablet,extended release 650 mg PO Q12H PRN Pain (if needed) Other Notes If you have any questions please call us at [phone] or [phone] or [phone] or [phone]
--- NOTE | 2022-04-15 14:36 | Anesthesiology Consultation ---
Date of Service April 15, 2022 Assessment & Plan (1) Encounter for pre-operative examination: - COVID screening: Per assessment on 04/15: No known COVID-19 positive contacts or current COVID-19 related symptoms. Travel screen negative. Patient vaccinated. Patient was Covid positive 03/02/22 ([facility]; [facility]). [facility] hospitalization 03/02-03/05/22. Symptoms at time: severe headache, loss of taste > "Brain fog" described at PCP office 03/16/22, suspect "long haul" symptoms. Patient had preop COVID testing done 04/15 ([facility] PAT)- result was negative. - S/P Laparoscopic incisional hernia repair (11/20/17): Grade 2 view, MAC#3, ETT 7.5 at [facility]. No issues noted per post-op anesthesia progress note. - Hydrocephalus: Chronic. Per brain MRI 03/02/22, "Moderate dilatation of the lateral and third ventricles suggestive of hydrocephalus. However, this is unchanged since prior MRI March 09, 2020 and therefore the clinical significance of this finding is uncertain." Last neurology office visit (05/04/20): "Moderate hydrocephalus - we reviewed images of brain MRI today. No clinical symptoms at this time, minimal memory impairment may be from other factors. Consider neur opsych testing if symptoms are progressive. 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 His personal copy of old films returned to him today.Currently on anticoagulation, atrial fibrillation and pulmonary embolus. His episode of dizziness in April was a single episode, nonspecific. ER evaluation remarkable possibly vertigo, atrial fibrillation or blood pressure related. It has not been recurrent, monitor for new or worsening symptoms. Follow-up as needed." - ASA/Eliquis instructions per surgeon/prescriber - Case/echo findings reviewed with Dr. Richards. He feels patient acceptable risk to proceed with given surgery as scheduled without further cardiac evaluation and/or testing from his perspective pending evaluation AM DOS. Chart Review Chart Review: Acceptable Risk for Surgery (pending evaluation AM DOS) and Patient seen in Pre Admission Testing Teaching & Discussion Pre-Anesthesia Teaching/Discussion Notes: Instructed NPO after midnight before s urgery,except medications with 15 cc of water. Medication instructions provided according to the PAT guidelines. History Surgery Operation Date: 04/19/22 07:30 Proposed Procedures p Left Carotid Endarterectomy - David Garvin MD Height/Weight Height: 5 ft 8 in Weight: 99.5 kg Allergies Allergy/AdvReac Type Severity Reaction Status Date / Time [id number] Reductase AdvReac Mild Joint aches Verified 04/19/22 06:22 Inhibitor [Cnekgjw-Qyj-Zje Reductase Inhibitor] ropinirole AdvReac Excessive Verified 04/19/22 06:22 sedation Medications Home Medications Medication Instructions Recorded Confirmed Last Taken multivitamin (Daily Multi-Vitamin 1 tab PO QAM 06/09/19 04/19/22 03/15/22 tablet) apixaban 5 mg tablet (Eliquis) 5 mg PO BID atrial fib #180 tabs 11/26/21 04/19/22 04/16/22 21:00 acetaminophen 650 mg 650 mg PO Q12H PRN Pain 03/02/22 04/19/22 04/12/22 tablet,extended release duloxetine 60 mg capsule,delayed 60 mg PO QAM 03/02/22 04/19/22 04/17/22 16:00 release losartan 100 0.5 tab PO QAM 03/02/22 04/19/22 04/16/22 09:00 mg-hydrochlorothiazide 12.5 mg tablet aspirin 81 mg tablet,delayed 81 mg PO QAM 04/07/22 04/19/22 04/16/22 21:00 release diltiazem HCl 300 mg capsule,24 300 mg PO DAILY #90 caps 04/07/22 04/19/22 04/16/22 09:00 hr,extended release Active Medications Generic Name Dose Route Start Last Admin Trade Name Freq PRN Reason Stop Dose Admin Lactated Ringer's 1,000 mls @ 80 mls/hr 04/19/22 06:00 04/19/22 06:54 Lr IV 05/19/22 05:59 80 mls/hr .[id number] ROLDAN Administration Past Medical History Medical History Benign essential hypertension BPH (benign prostatic hyperplasia) DVT (deep venous thrombosis) RLE (1+ year ago) History of COVID-19 Dx 03/02/22 ([facility] hospitalization 03/02-03/05/22) Symptoms at time: severe headache, loss of taste > "Brain fog" described at PCP office 03/16/22, suspect "long haul" symptoms Hx of carotid stenosis "Hemodynamically significant stenosis in the left internal carotid artery. Significant atherosclerotic disease without hemodynamically significant stenosis in the right." per 03/02/22 neck CTA Hydrocephalus Chronic. Per brain MRI 03/02/22, "Moderate dilatation of the lateral and third ventricles suggestive of hydrocephalus. However, this is unchanged since prio r MRI March 09, 2020 and therefore the clinical significance of this finding is uncertain." > F/U as needed for hx of moderate hydrocephalus per [facility] neurology 05/04/2020 Obesity Obstructive sleep apnea CPAP (compliant) PAF (paroxysmal atrial fibrillation) Monitored by PCP- on Eliquis/diltiazem/ASA Pulmonary embolism x2 (1+ year ago) Right lumbar radiculopathy Exercise / Class Metabolic Activity II 4-5 Yardwork/Stairs/Walk up hill (one FS (no CP, no SOB)) Past Family History Family History Mother Breast cancer Hypertension Father COPD (chronic obstructive pulmonary disease) Grandmother (Maternal) Cancer Grandfather Stroke Denies family history of Rheumatoid arthritis Sudden SIDS (sudden infant syndrome) Ovarian cancer Prostate cancer Diabetes Deep vein thrombosis Osteoporosis Coronary heart disease Dyslipidemia Cerebral aneurysm Alzheimer disease Bipolar disorder Clotting disorder Crohn's disease Dementia Depression Heart disease Kidney disease Myocardial infarction Osteoarthritis Schizophrenia Congenital kidney disease Gestational diabetes Lung cancer Colorectal cancer Pulmonary embolism Lung disease Ulcerative colitis Colonic polyp Asthma Cystic kidney disease Past Surgical History Surgical History History of cholecystectomy History of esophagogastroduodenoscopy (EGD) History of incisional hernia repair Laparoscopic incisional hernia repair (11/20/17): Grade 2 view, MAC#3, ETT 7.5 at [facility]. No issues noted per post-op anesthesia progress note. Hx of colonoscopy Hx of sinus surgery + deviated septum repair ([place]) Past Anesthesia History No Hx of Anesthesia Complications and No Family Hx of Anesthesia Complications History of PONV No Hx of PONV and No Hx of Motion Sickness Social History Smoking Status: Never smoker Do You Dip or Chew Tobacco: No Hx Alcohol Use: Yes ("very minimal") Alcohol type: beer alcohol intake frequency: holidays/special occasions only Hx Substance Use: No substance use type: does not use Review of Systems Patient denies chest pain, shortness of breath, dyspnea on exertion, fever, chills, cough, wheezing, palpitations. Physical Exam Vital Signs Last Vital Signs Temp 36.7 C 04/19/22 06:26 Pulse 102 H 04/19/22 06:26 Resp 20 04/19/22 06:26 BP 128/88 04/19/22 06:26 Pulse Ox 99 04/19/22 06:26 O2 Del Method 04/19/22 06:26 VITALS BP 121/78 P 93 TEMP 98.5 SP02 98%RA RESP 16 PHYSICAL Full cervical extension range of motion. Full TMJ range of motion. TMD 3 finger breaths Mallampati Score 3 Dentition: missing molars Lungs: clear throughout to auscultation Cardiac: regular rate, irregular rhythm, no murmurs noted Spine: normal Carotid arteries: negative bruit Extremities: no edema Thick neck Lab Results Anesthesia Preop Results Results Anesthesia Widget: WBC 9.55 K/ul (4.8-10.8) 04/15/22 Hgb 15.2 g/dl (14.0-18.0) 04/15/22 Hct 44.7 % (40.1-51.0) 04/15/22 Plt 296 K/uL (130-400) 04/15/22 Na 137 mmol/L (136-145) 04/15/22 K 4.0 mmol/L (3.5-5.1) 04/15/22 Cl 103 mmol/L (98-107) 04/15/22 CO2 28 mmol/L (21-32) 04/15/22 BUN 18 mg/dl (6-23) 04/15/22 Creat 1.32 mg/dl (0.6-1.4) 04/15/22 Glucose Level 85 mg/dl (70-99(Fasting)) 04/15/22 PT 11.7 Seconds (9.0-12.0) 04/15/22 PTT 27.9 Seconds (21.0-31.0) 04/15/22 INR 1.1 (0.9-1.1) 04/15/22 Urine Color Yellow 03/02/22 Urine Appearance Clear (Clear) 03/02/22 Urine pH 6.0 (4.5-7.5) 03/02/22 Urine Specific [place] > 1.045 (1.000-1.030) H 03/02/22 Urine Protein Negative (Negative) 03/02/22 Urine Glucose (UA) Negative (Negative) 03/02/22 Urine Ketones Negative (Negative) 03/02/22 Urine Blood Negative (Negative) 03/02/22 Urine Nitrite Negative (Negative) 03/02/22 Urine Bilirubin Negative (Negative) 03/02/22 Urine Urobilinogen Negative (Negative) 03/02/22 Urine Leukocyte Esterase Negative (Negative) 03/02/22 SARS-CoV-2, RNA, NAAT NEGATIVE (NEGATIVE) 04/19/22 Blood Type O Positive 04/15/22 Antibody Screen NEGATIVE 04/15/22 Testing Electrocardiogram Date: 03/02/22 Atrial fibrillation at 71 bpm. Possible inferior infarct (cited on or before 01/18/2020 per engraver ornamental design review). Echocardiogram Date: 04/11/22 Atrial fibrillation with RVR. EF 50%. Akinesis of the basal inferior and basal infero septal bond. No LVH. Indeterminate LV diastolic function. Mild biatrial dilatation. Calcified tricuspid aortic valve without stenosis. Mild MR. PASP [address] Chest (03/03/22) Trace right pleural effusion. No airspace consolidation typical for pneumonia. Stable mediastinal, hilar and axillary adenopathy. Cardiomegaly. Cholecystectomy. Brain MRI (03/02/22) No acute intracranial findings. Moderate dilatation of the lateral and third ventricles suggestive of hydrocephalus. However, this is unchanged since prior MRI March 09, 2020 and therefore the clinical significance of this finding is uncertain. No change in appearance of the brain. Small air-fluid level within the left maxillary sinus. Moderate ethmoid sinus mucosal thickening. Neck CTA (03/02/22) Hemodynamically significant stenosis in the left internal carotid artery. There is hemodynamically significant stenosis in the left internal carotid artery with greater than 70% stenosis. The right internal carotid artery demonstrates less than 70% stenosis. Significant atherosclerotic disease without hemodynamically significant stenosis in the right. Findings can be further evaluated by carotid ultrasound. Assessment of stenosis of the internal carotid arteries is based on NASCET criteria. Head CTA (03/02/22) No acute intracranial hemorrhage or mass effect. No central vessel occlusion or intracranial aneurysm. Moderate dilatation of the lateral and third ventricles suggestive of hydrocephalus. However, this is unchanged since prior head CT of February 15, 2020 and MRI of March 09, 2020. Therefore, the clinical significance of this finding is uncertain.
[2022-04-19] MEDS ORDERED: LACTATED RINGER'S 1,000 ML IV SCH (06:00)
[2022-04-19] MEDS ORDERED: EPINEPHrine INJ 1 MG/ML AMP ONE (06:58)
[2022-04-19] MEDS ORDERED: GELATIN SPONGE SZ 100 ONE (06:58)
[2022-04-19] MEDS ORDERED: HEPARIN (PORCINE) 1000 UNIT/ML 10 ML (CATH LAB USE ONLY) ONE (06:58)
[2022-04-19] MEDS ORDERED: THROMBIN FOR SOLN 20000 UNIT KIT ONE (06:58)
[2022-04-19] MEDS ORDERED: LIDOCAINE 1% LOCAL 20 ML VIAL ONE (06:58)
[2022-04-19] MEDS ORDERED: ceFAZolin 330 MG/ML 1 GM VIAL ONE (06:58)
[2022-04-19] MEDS ORDERED: BUPIVACAINE 0.5 % 5 MG/1 ML MPF 30ML VIAL ONE (06:58)
[2022-04-19] MEDS ORDERED: ONDANSETRON INJ 2 MG/ML 2 ML VIAL IV PRN (07:06)
[2022-04-19] MEDS ORDERED: ATROPINE SULFATE 0.1 MG/ML 10ML SYR IV PRN (07:06)
[2022-04-19] MEDS ORDERED: LIDOCAINE 2% 2 ML VIAL/AMP(20MG/ML) INFIL ONE (07:06)
[2022-04-19] MEDS ORDERED: PROPOFOL IV EMULSION 10 MG/ML 20 ML VIAL IV ONE (07:06)
[2022-04-19] MEDS ORDERED: PROMETHAZINE HCL 6.25 MG in SODIUM CHLORIDE 0.9% 50 ML IV PRN (07:06)
[2022-04-19] MEDS ORDERED: LABETALOL HCL IV 5 MG/ML 20ML IV PRN (07:06)
[2022-04-19] MEDS ORDERED: ROCURONIUM BROMIDE 10 MG/ML 5 ML VIAL IV ONE (07:06)
[2022-04-19] MEDS ORDERED: fentaNYL citrate 100 MCG/2 ML VIAL IV PRN (07:06)
[2022-04-19] MEDS ORDERED: fentaNYL citrate 100 MCG/2 ML VIAL ONE ×2 (07:06→09:43)
--- NOTE | 2022-04-19 07:19 | History & Physical Report ---
Date of Service April 19, 2022 History of Present Illness Primary Care Provider: Walter Herr MD Chief Complaint rm#[id number] here for EVAL after hospitalization for COVID and was found to have ICA stenosis per CTA neck History of Present Illness I the pleasure of seeing Cleve today for evaluation of his carotid disease. As you know he is a 67-year-old gentleman who was admitted to [facility] for headache and was found to have a COVID. During his hospital stay he had a CT angiogram of his carotid arteries which showed a severe 80 to 85% narrowing of his left internal carotid artery. He was asymptomatic neurologically from this and is and remains asymptomatic. He denies any symptoms of claudication. He does have atrial fibrillation and takes Eliquis for it. He denies any chest pain or shortness of breath on exertion. Review of Systems 10 systems were reviewed. Positive findings included his irregular heartbeat cough wheezing shortness of breath. The rest of positive findings per the HPI. Physical Exam Vitals & Measurements HR: 85 (Monitored) BP: 126/76 SpO2: 98% Input and Output - Last 24 hours (Last 8 hours) No I/O Data Found: Physical exam showed a well-nourished well-developed male. He is in no apparent distress. His blood pressure is 126/76 on the right 116/80 on the left. Radials carotids and superficial temporal arteries are +2 bilaterally. There is a soft left carotid bruit. Heart had a regular rate and rhythm. Abdominal exam was benign I cannot appreciate a pulsatile mass. Femorals and pedal pulses are all +2 bilaterally with normal capillary refill. Neurologic Casey is intact to motor and sensory function. Assessment/Plan 1. Carotid stenosis, left At this point I recommended a left carotid endarterectomy. Patient understood the risks options and benefits and agreed. This procedure. We will obtain echo preoperatively for cardiac evaluation prior to surgery. Thank you very much for letting us participate in the care of this patient. Sincerely, Radha Garvin MD Ordered: Echo TransTHORacic TTE Complete Problem List/Past Medical History Ongoing Carotid stenosis, left Historical No qualifying data Medications Inpatient No active inpatient medications Home aspirin 81 mg oral delayed release tablet, 81 mg= 1 tab, PO, Daily DilTIAZem (Eqv-Tiazac) 300 mg/24 hours oral capsule, extended release DULoxetine 60 mg oral delayed release capsule, 60 mg= 1 cap, PO, Daily Eliquis 5 mg oral tablet, 5 mg= 1 tab, PO, bid hydroCHLOROthiazide-losartan 12.5 mg-100 mg oral tablet, 1 tab, PO, Daily Tylenol 8 HR Arthritis Pain 650 mg oral tablet, extended release, 1300 mg= 2 tab, PO, Daily, PRN Allergies NKA Social History Smoking Status Never smoked cigarettes Signature Line Electronic Signature on File David Garvin MD Author Signature Dt/Tm: 03/28/2022 03:49 PM Manager Gift Frederick Sinha [facility] [place] [address], [address] [place] [address] EJS Result Type: .Outpt Ltr Date of Service: March 28, 2022 15:49 EDT Authorization Status: Final Subject: Consult Note Author or Import Date: MD Garvin Eugene J on March 28, 2022 15:49 EDT Verified By: MD Garvin Eugene J on March 28, 2022 15:49 EDT Encounter info: [id number], [place] [id number], Clinic, 03/28/2022 - 03/28/2022 Allergies Allergy/AdvReac Type Severity Reaction Status Date / Time Phnzlby-BKE-ZfK Reductase AdvReac Mild Joint aches Verified 04/19/22 06:22 Inhibitor [Zlfnlvn-Wgw-Ugb Reductase Inhibitor] ropinirole AdvReac Excessive Verified 04/19/22 06:22 sedation Home Medications Medication Instructions Recorded Confirmed Type multivitamin (Daily Multi-Vitamin 1 tab PO QAM 06/09/19 04/19/22 History tablet) apixaban 5 mg tablet (Eliquis) 5 mg PO BID atrial fib #180 tabs 11/26/21 04/19/22 Rx acetaminophen 650 mg 650 mg PO Q12H PRN Pain 03/02/22 04/19/22 History tablet,extended release duloxetine 60 mg capsule,delayed 60 mg PO QAM 03/02/22 04/19/22 History release losartan 100 0.5 tab PO QAM 03/02/22 04/19/22 History mg-hydrochlorothiazide 12.5 mg tablet aspirin 81 mg tablet,delayed 81 mg PO QAM 04/07/22 04/19/22 History release diltiazem HCl 300 mg capsule,24 300 mg PO DAILY #90 caps 04/07/22 04/19/22 Rx hr,extended release Past Med/Surg History Medical History Benign essential hypertension BPH (benign prostatic hyperplasia) DVT (deep venous thrombosis) RLE (1+ year ago) History of COVID-19 Dx 03/02/22 ([facility] hospitalization 03/02-03/05/22) Symptoms at time: severe headache, loss of taste > "Brain fog" described at PCP office 03/16/22, suspect "long haul" symptoms Hx of carotid stenosis "Hemodynamically significant stenosis in the left internal carotid artery. Significant atherosclerotic disease without hemodynamically significant stenosis in the right." per 03/02/22 neck CTA Hydrocephalus Chronic. Per brain MRI 03/02/22, "Moderate dilatation of the lateral and third ventricles suggestive of hydrocephalus. However, this is unchanged since prior MRI March 09, 2020 and therefore the clinical significance of this finding is uncertain." > F/U as needed for hx of moderate hydrocephalus per [facility] neurology 05/04/2020 Obesity Obstructive sleep apnea CPAP (compliant) PAF (paroxysmal atrial fibrillation) Monitored by PCP- on Eliquis/diltiazem/ASA Pulmonary embolism x2 (1+ year ago) Right lumbar radiculopathy Surgical History History of cholecystectomy History of esophagogastroduodenoscopy (EGD) History of incisional hernia repair Laparoscopic incisional hernia repair (11/20/17): Grade 2 view, MAC#3, ETT 7.5 at [facility]. No issues noted per post-op anesthesia progress note. Hx of colonoscopy Hx of sinus surgery + deviated septum repair ([place]) Family History Mother Breast cancer Hypertension Father COPD (chronic obstructive pulmonary disease) Grandmother (Maternal) Cancer Grandfather Stroke Denies family history of Rheumatoid arthritis Sudden SIDS (sudden syndrome) Ovarian cancer Prostate cancer Diabetes Deep vein thrombosis Osteoporosis Coronary heart disease Dyslipidemia Cerebral aneurysm Alzheimer disease Bipolar disorder Clotting disorder Crohn's disease Dementia Depression Heart disease Kidney disease Myocardial infarction Osteoarthritis Schizophrenia Congenital kidney disease Gestational diabetes Lung cancer Colorectal cancer Pulmonary embolism Lung disease Ulcerative colitis Colonic polyp Asthma Cystic kidney disease Social History Smoking Status: Never smoker Second Hand Exposure: No; Do You Dip or Chew Tobacco: No; Tobacco Cessation Education Requested by Patient: No Hx Alcohol Use: Yes ("very minimal") Alcohol type: beer Hx Substance Use: No Preferred Language: Norwegian Communication Ability: Effective Visual Impairment: No Limitations Hearing Ability: Normal Consumer Recruiter Required: No Beliefs That Will Affect Care: None marital status: Single Current Living Situation: Alone current occupational status: employed current occupation: [employer] Other Information That Helps Us Care for You: No Feels Safe at Home: Yes Safety Concerns: Feels Safe At This Time Childhood Exposure to Second-Hand Smoke: Yes caffeine: Yes Dental Care, Regularly: Yes Physical Activity Frequency: Does not Exercise Seatbelt Use: sometimes Sunscreen Use: No Assistive Devices: CPAP and Glasses Results & Data ([facility]) Vital Signs (Past 12 Hours) Vital Signs Temp Pulse Resp BP Pulse Ox O2 Del Method 04/19/22 06:26 36.7 C 102 H 20 128/88 99 Room Air
[2022-04-19] MEDS: CEFAZOLIN 2,000 MG/15 ML SYR IV SCH ×2 (07:45→17:47)
[2022-04-19] MEDS ORDERED: ESMOLOL HCL INJ 10 MG/ML 10ML VIAL IV ONE (08:49)
[2022-04-19] MEDS ORDERED: ONDANSETRON INJ 2 MG/ML 2 ML VIAL ONE (08:49)
[2022-04-19] MEDS ORDERED: ePHEDrine sulfate 50 MG/ML SYR ONE (08:49)
[2022-04-19] MEDS ORDERED: DEXAMETHASONE SOD INJ 4 MG/ML VIAL ONE (08:49)
[2022-04-19] MEDS ORDERED: HEPARIN SOD (PORCINE) 1000 UNIT/ML ONE (08:49)
[2022-04-19] MEDS ORDERED: PHENYLEPHRINE HCL 10 MG/ML VIAL ONE (08:49)
[2022-04-19] MEDS ORDERED: NITROGLYCERIN 5 MG/ML 10 ML VIAL ONE (08:49)
[2022-04-19] MEDS ORDERED: SUGAMMADEX SODIUM 200 MG/2 ML VIAL IV ONE (09:32)
--- NOTE | 2022-04-19 09:56 | Operative Report ---
Post Operative Report Pre & Post Diagnosis Operation Date: 04/19/22 07:30 Pre-Op Diagnosis: Left Internal Carotid Artery Stenosis Post-Op Diagnosis: Left Internal Carotid Artery Stenosis I identified the patient and participated in the time-out.: Yes Procedure Operation Date: 04/19/22 07:30 Actual Procedures p Left Carotid Endarterectomy with bovine patch.(Left) - David Garvin MD Surgeon David Garvin MD Shift Manager Annamarie,PAC Estimated Blood Loss 80 Findings Consistent with Post-Op Diagnosis Specimens carotid plaque Anesthesia Type General Complications none Disposition Accompanied Patient To Recovery: No Disposition: Recovery Room Indications Patient with severe stenosis of the left internal carotid artery. Endarterectomy was recommended. I have discussed the risks options and benefits of the procedure with the patient. The patient understands the risks options and benefits and agrees to the procedure. Description of Procedure The patient was taken to the operating room and placed in supine position. After general anesthesia was accomplished the left side of the neck was prepped and draped in a sterile manner. The patient was identified and a timeout performed. A longitudinal neck incision was then made coursing along the medial border of the sternocleidomastoid muscle. The incision was taken down through the platysmal layer. The facial vein was identified, ligated, and divided. The common carotid artery was then seen. It was dissected free down to the omohyoid muscle. The dissection was carried upward until the external carotid artery and superior thyroid artery was seen. The superior thyroid artery was slung with a 2-0 silk suture. The external carotid was slung with a red rubber vessel loop. Next the dissection was carried up along the internal carotid artery. This was carried upward to beyond the area of narrowing. The hypoglossal nerve was seen and preserved. The patient was heparinized. After adequate heparinization was accomplished, the internal, external, and common carotid arteries were clamped. A longitudinal arteriotomy was started on the common carotid artery and extended upward along the internal carotid artery to a point beyond the area of narrowing. There was calcified plaque of the internal carotid artery origin causing approximately 90%+ narrowing with ulceration extending up into the internal carotid artery.. A Sundtr shunt was then placed in the internal, followed by the common carotid artery and held in place with Osman clamps. There was good back bleeding seen from the internal carotid artery. The endarterectomy was then started in the appropriate plane on the common carotid artery. This was carried upward and the external carotid was everted and endarterectomized. The endarterectomy was then carried up along the internal carotid artery till a nice feathering breakoff point was accomplished beyond the end of the plaque. The endarterectomy was then carried down further on the common carotid artery. At end of the arteriotomy, the plaque was then transected. Under loop magnification, all loose debris and flaps werer removed. There is no distal flap seen at the end of the endarterectomy site but we did use tacking sutures at this end to avoid a flap. The arteriotomy then closed using a bovine patch using 6-0 prolene suture. This was done in the usual vascular fashion. Prior to completing the closure, the Sundt shunt was removed and the internal and common carotid arteries were reclamped. Backbleeding and forward bleeding was allowed to occur. The flow surface was irrigated with heparinized saline. The final few sutures were then placed and securely tied. Clamps were then removed off the external and common carotid arteries. The clamp was then removed the internal carotid artery. Good distal flow was seen. Adequate hemostasis was seen of the patch. The wound was inspected and adequate hemostasis was obtained. The wound was irrigated with antibiotic solution. It was then closed with a running 3-0 Vicryl suture for the platysmal layer and a 4-0 subcuticular Vicryl suture for the skin edges. Dermabond was used for palma ssing. The patient left the operation room in satisfactory condition and tolerated the procedure well. All needle and sponge counts were correct at the end of the procedure. Francine Scanlon Pac assisted due to lack of resident availability and was necessary for prepping, draping, retraction, wound closure defects, subQ and skin closure and was necessary for the case. I attest to the content of the Intraoperative Record and any orders documented therein. Any exceptions are noted below.
[2022-04-19] MEDS ORDERED: ACETAMINOPHEN 325 MG TAB PO STA (11:50)
[2022-04-19] MEDS ORDERED: MoRPHine SULFATE 4 MG/ML 1 ML CARP\\VIAL IV PRN (11:58)
--- NOTE | 2022-04-19 12:15 | Anesthesiology Progress Note ---
Date of Service April 19, 2022 Anesthesia Post Procedure Vital Signs Vital Signs: Temp Pulse Pulse Resp BP BP BP 04/19/22 12:00 101 H 12 121/85 120/70 04/19/22 11:45 99 H 12 117/88 117/67 04/19/22 11:30 95 H 20 102/72 108/63 04/19/22 11:15 108 H 19 109/71 120/72 04/19/22 10:56 107 H 18 123/80 124/73 04/19/22 10:45 102 H 17 122/89 110/83 04/19/22 10:35 106 H 12 147/92 H 151/83 H 04/19/22 10:25 105 H 24 141/93 H 158/87 H 04/19/22 11:05 36.5 C 109 H 22 106/85 111/72 04/19/22 10:19 36.0 C L 109 H 16 134/93 04/19/22 06:26 36.7 C 102 H 20 114/73 128/88 Pulse Ox O2 Del Method O2 Flow Rate 04/19/22 12:00 96 Room Air 04/19/22 11:45 94 Room Air 04/19/22 11:30 97 Room Air 04/19/22 11:15 97 Room Air 04/19/22 10:56 99 Oxymask 2 04/19/22 10:45 99 Oxymask 2 04/19/22 10:35 100 Oxymask 2 04/19/22 10:25 100 Oxymask 6 04/19/22 11:05 99 Room Air 04/19/22 10:19 97 Oxymask 6 04/19/22 06:26 99 Room Air Pain Intensity Head: Pain Intensity: 6 Transfer of Care Handoff Completed per policy Notes Mental Status: alert / awake / arousable Patient Amnestic to Procedure: Yes Nausea / Vomiting: adequately controlled Pain: adequately controlled Airway Patency, RR, SpO2: stable & adequate BP & HR: stable & adequate Hydration State: stable & adequate Anesthetic Complications: no major complications apparent
[2022-04-19] MEDS ORDERED: ACETAMINOPHEN 325 MG TAB PO PRN (12:24)
[2022-04-19] MEDS: LACTATED RINGER'S 1,000 ML IV SCH ×2 (13:10→21:03)
--- NOTE | 2022-04-19 14:25 | Critical Care Consultation ---
Date of Consultation April 19, 2022 Assessment & Plan (1) Status post carotid endarterectomy: (2) Headache: (3) Hydrocephalus: (4) Obstructive sleep apnea: (5) Benign essential hypertension: (6) BPH (benign prostatic hyperplasia): Plan Reason Critically Ill: Cleve is a 67 year old male admitted to the ICU for monitoring post op from L carotid endarterectomy w/ bovine patch. Neuro CAM ICU: Negative Headache: -Improved w/ Tylenol, no neuro focal deficits. Tylenol 650mg q12h PRN for pain. Hx of Hydrocephalus: -MRI from 02/2022 w/o change from MRI 02/2020. Stable. Cardiac S/P L Carotid Endarterectomy: -Monitor for acute neurovascular changes. Management per vascular surgical team. Hypertension: -Continue home losartan/HCTZ qAM. Keep BP w/in range per vascular team. A. Fib: -Telemetry exhibiting atrial fibrillation w/o RVR, rate in 70's-80's. Continue home Diltiazem daily, Eliquis per primary vascular team. Respiratory Sleep Apnea: -Patient with CPAP usage at night, no oxygen requirement usually. Wean off O2 as needed, CPAP for sleep. GI Heart healthy diet, advance as tolerated. Renal/Electrolytes Creatinine 1.0-1.3 baseline, patient at baseline. Electrolytes within normal limits. Strict I&O's. Endo No history of diabetes or thyroid disease. Heme CBC within normal limits. AM CBC. Hx of PE: -On Eliquis 5mg BID, ASA 81mg at home. Continue per primary vascular team. ID No concern for infectious source at this time. Patient post-covid and sinusitis treatment from 03/02. Lines/IV Access Peripheral IVs. DVT Prophylaxis SCDs, Eliquis restart per vascular surgery team. Dispo: ICU. Supervising Physician Co-Signing Physician Notes Patient seen and examined. EMR reviewed. Discussed with family practice resident and agree with assessment plan as noted. Patient is status post carotid endarterectomy. Blood pressure is adequate. He has no neurological deficits. We will follow-up on his laboratory studies. Additional orders per vascular surgery. History of Present Illness Reason for Consultation: Post op monitoring Requesting Physician: Dr. Garvin Attending Physician: David Garvin MD History of Present Illness Cleve is a 67 year old male w/ PmHx of PE & A. fib in 2020 on Eliquis, hypertension, lumbar back pain, recent admission for moderate COVID-19 infection coming in today for L carotid endarterectomy w/ bovine patch by Dr. Garvin. Patient came in to the ED 03/02 for headache ongoing for 14 days, runny nose and dry cough. At that time he was found to have COVID-19 as well as a sinusitis, given dexamethasone and doxycycline w/ improvement in symptoms. He was also found to have a L carotid artery stenosis >70%, R carotid artery stenosis <70%, not requiring emergent surgical intervention. He was also found to have some mild dilation of lateral and third ventricles which was unchanged from an MRI in 2020. He followed up with Dr. Garvin outpatient and was scheduled for L carotid endarterectomy for today. Patient denies any symptoms prior to surgical intervention such as visual distortion or changes, focal weakness. He states post surgery he feels fine other than the headache he's been experiencing since prior to the surgery. The headache was originally center and across his forehead but with Tylenol has calmed down to just above the left eye. He was able to eat some broth and drink some water without issue. He denies any visual changes, nausea, shortness of breath, chest pain. Allergies Allergy/AdvReac Type Severity Reaction Status Date / Time Pezxylt-TGU-DhC Reductase AdvReac Mild Joint aches Verified 04/19/22 06:22 Inhibitor [Xzppysl-Vjz-Tcb Reductase Inhibitor] ropinirole AdvReac Excessive Verified 04/19/22 06:22 sedation Home Medications Medication Instructions Recorded Confirmed Type multivitamin (Daily Multi-Vitamin 1 tab PO QAM 06/09/19 04/19/22 History tablet) apixaban 5 mg tablet (Eliquis) 5 mg PO BID atrial fib #180 tabs 11/26/21 04/19/22 Rx acetaminophen 650 mg 650 mg PO Q12H PRN Pain 03/02/22 04/19/22 History tablet,extended release duloxetine 60 mg capsule,delayed 60 mg PO QAM 03/02/22 04/19/22 History release losartan 100 0.5 tab PO QAM 03/02/22 04/19/22 History mg-hydrochlorothiazide 12.5 mg tablet aspirin 81 mg tablet,delayed 81 mg PO QAM 04/07/22 04/19/22 History release diltiazem HCl 300 mg capsule,24 300 mg PO DAILY #90 caps 04/07/22 04/19/22 Rx hr,extended release Patient History Medical History Benign essential hypertension BPH (benign prostatic hyperplasia) DVT (deep venous thrombosis) RLE (1+ year ago) History of COVID-19 Dx 03/02/22 ([facility] hospitalization 03/02-03/05/22) Symptoms at time: severe headache, loss of taste > "Brain fog" described at PCP office 03/16/22, suspect "long haul" symptoms Hx of carotid stenosis "Hemodynamically significant stenosis in the left internal carotid artery. Significant atherosclerotic disease without hemodynamically significant stenosis in the right." per 03/02/22 neck CTA Hydrocephalus Chronic. Per brain MRI 03/02/22, "Moderate dilatation of the lateral and third ventricles suggestive of hydrocephalus. However, this is unchanged since prior MRI March 09, 2020 and therefore the clinical significance of this finding is uncertain." > F/U as needed for hx of moderate hydrocephalus per [facility] neurology 05/04/2020 Obesity Obstructive sleep apnea CPAP (compliant) PAF (paroxysmal atrial fibrillation) Monitored by PCP- on Eliquis/diltiazem/ASA Pulmonary embolism x2 (1+ year ago) Right lumbar radiculopathy Surgical History History of cholecystectomy History of esophagogastroduodenoscopy (EGD) History of incisional hernia repair Laparoscopic incisional hernia repair (11/20/17): Grade 2 view, MAC#3, ETT 7.5 at [facility]. No issues noted per post-op anesthesia progress note. Hx of colonoscopy Hx of sinus surgery + deviated septum repair ([place]) Family History Mother Breast cancer Hypertension Father COPD (chronic obstructive pulmonary disease) Grandmother (Maternal) Cancer Grandfather Stroke Denies family history of Rheumatoid arthritis Sudden SIDS (sudden syndrome) Ovarian cancer Prostate cancer Diabetes Deep vein thrombosis Osteoporosis Coronary heart disease Dyslipidemia Cerebral aneurysm Alzheimer disease Bipolar disorder Clotting disorder Crohn's disease Dementia Depression Heart disease Kidney disease Myocardial infarction Osteoarthritis Schizophrenia Congenital kidney disease Gestational diabetes Lung cancer Colorectal cancer Pulmonary embolism Lung disease Ulcerative colitis Colonic polyp Asthma Cystic kidney disease Social History Smoking Status: Never smoker Second Hand Exposure: No; Do You Dip or Chew Tobacco: No; Tobacco Cessation Education Requested by Patient: No Hx Alcohol Use: Yes ("very minimal") Alcohol type: beer Hx Substance Use: No Preferred Language: Italian Communication Ability: Effective Visual Impairment: No Limitations Hearing Ability: Normal Broom Worker Required: No Beliefs That Will Affect Care: None marital status: Single Current Living Situation: Alone current occupational status: employed current occupation: [employer] Other Information That Helps Us Care for You: No Feels Safe at Home: Yes Safety Concerns: Feels Safe At This Time Childhood Exposure to Second-Hand Smoke: Yes caffeine: Yes Dental Care, Regularly: Yes Physical Activity Frequency: Does not Exercise Seatbelt Use: sometimes Sunscreen Use: No Assistive Devices: CPAP and Glasses Review of Systems Constitutional: as per Subjective / HPI Physical Exam Constitutional: WD/WN, vitals as above Eyes: PERRL, conjunctivae normal, anicteric sclerae Respiratory: normal respiratory effort, lungs clear to auscultation Cardiovascular: Rate/Rhythm: regular rate and + irregularly irregular Heart Sounds: normal S1 and normal S2 No murmurs. Gastrointestinal (Abdomen): normal bowel sounds, soft, nontender, no hepatosplenomegaly Musculoskeletal: no cyanosis or clubbing, extremities motor strength 5/5 Skin: Incision at the left anterolateral neck Psychiatric: A+Ox3, euthymic affect Results & Data Results & Data ([facility]) Vital Signs (Past 12 Hours) Vital Signs Temp Pulse Pulse Resp BP BP BP 04/19/22 13:00 83 14 128/83 110/68 04/19/22 12:45 109 H 18 111/75 102/59 L 04/19/22 12:30 94 H 20 128/64 119/68 04/19/22 12:15 86 21 116/85 120/69 04/19/22 12:00 101 H 12 121/85 120/70 04/19/22 11:45 99 H 12 117/88 117/67 04/19/22 11:30 95 H 20 102/72 108/63 04/19/22 11:15 108 H 19 109/71 120/72 04/19/22 10:56 107 H 18 123/80 124/73 04/19/22 10:45 102 H 17 122/89 110/83 04/19/22 10:35 106 H 12 147/92 H 151/83 H 04/19/22 10:25 105 H 24 141/93 H 158/87 H 04/19/22 11:05 36.5 C 109 H 22 106/85 111/72 04/19/22 10:19 36.0 C L 109 H 16 134/93 04/19/22 06:26 36.7 C 102 H 20 114/73 128/88 Pulse Ox O2 Del Method O2 Flow Rate 04/19/22 13:00 100 Nasal Cannula 2 04/19/22 12:45 100 Nasal Cannula 2 04/19/22 12:30 99 Nasal Cannula 2 04/19/22 12:15 99 Nasal Cannula 2 04/19/22 12:00 96 Room Air 04/19/22 11:45 94 Room Air 04/19/22 11:30 97 Room Air 04/19/22 11:15 97 Room Air 04/19/22 10:56 99 Oxymask 2 04/19/22 10:45 99 Oxymask 2 04/19/22 10:35 100 Oxymask 2 04/19/22 10:25 100 Oxymask 6 04/19/22 11:05 99 Room Air 04/19/22 10:19 97 Oxymask 6 04/19/22 06:26 99 Room Air Resident Activity Tracking Resident Involvement: Resident Care Provided Care Provided: Adult Hospital Medicine (1) BPH (benign prostatic hyperplasia) Lower urinary tract symptom presence: symptoms absent Qualified Code(s): N4 0.0 - Benign prostatic hyperplasia without lower urinary tract symptoms (2) Headache Headache chronicity pattern: acute headache Headache type: unspecified Intractability: not intractable Qualified Code(s): R51.9 - Headache, unspecified
--- NOTE | 2022-04-19 15:54 | Billing Data ---
Date of Service April 19, 2022 Coding Level of Care Code 69623 Initial Inpt Care Lvl 2
[2022-04-19] MEDS: ceFAZolin 2000MG 2,000 MG/15 ML SYR IV SCH (18:13)
[2022-04-19] MEDS: oxyCODONE/ACETAMINOPHEN 5mg/325mg TAB PO PRN ×2 (21:02→22:37)
[2022-04-20] MEDS: ceFAZolin 2000MG 2,000 MG/15 ML SYR IV SCH (00:32)
[2022-04-20 05:49] LABS: Basophils # (auto) 0.03 K/uL (0-0.2); Basophils % (auto) 0.2 %; Eosinophils # (auto) 0.01 K/uL (0-0.50); Eosinophils % (auto) 0.1 %; Hematocrit (blood only) 35.5 % (40.1-51.0); Hemoglobin 12.1 g/dl (14.0-18.0); Immature Granulocytes # (auto) 0.08 K/uL (0.00-0.02); Immature Granulocytes % (auto) 0.5 %; Lymphocytes # (auto) 1.11 K/uL (1.2-3.4); Lymphocytes % (auto) 6.9 %; Mean Corpuscular Hemoglobin 31.5 pg (25.0-34.0); Mean Corpuscular Hgb Conc 34.1 g/dL (32.0-36.0); Mean Corpuscular Volume 92.4 fL (80.0-100.0); Mean Platelet Volume 10.4 fL (9.4-12.4); Monocytes # (auto) 1.16 K/uL (0.24-0.82); Monocytes % (auto) 7.2 %; Neutrophils # (auto) 13.81 K/uL (1.4-6.5); Neutrophils % (auto) 85.1 %; Platelet Count 220 K/uL (130-400); RDW Coefficient of Variation 13.2 % (11.5-14.5); RDW Standard Deviation 44.6 fL (36.4-46.3); Red Blood Count 3.84 M/uL (4.63-6.08)
[2022-04-20 06:13] LABS: Calcium 9.3 mg/dl (8.5-10.1); Est GFR (Non-African American) 66.4 ml/min; Magnesium 1.8 mg/dl (1.7-2.4); Phosphorus 3.3 mg/dl (2.5-4.9); Potassium 4.4 mmol/L (3.5-5.1)
[2022-04-20] MEDS: LACTATED RINGER'S 1,000 ML IV SCH ×2 (07:24→12:27)
--- NOTE | 2022-04-20 07:43 | Critical Care Progress Note ---
Date of Service April 20, 2022 Assessment & Plan (1) Status post carotid endarterectomy: (2) Hypercholesterolemia: (3) Headache: (4) Obstructive sleep apnea: (5) Hypertension: Plan Impression: 67-year-old male status post carotid endarterectomy. He has chronic A. fib and sleep disordered breathing. He is better this morning. His headache is improved. Recommendations: 1. Status post carotid endarterectomy. Patient is doing well currently. No neurological symptoms. Long-term management per vascular surgery. 2. Hypertension: Continue antihypertensives. Blood pressures at goal. 3. Atrial fibrillation with rapid ventricular response. The patient is due for his oral medications this morning. He is asymptomatic. His anticoagulation has been resumed. 3. Sleep disordered breathing: Continue nightly CPAP. 4. Leukocytosis: Suspect reactive. No indication for infection. Continue to monitor clinically. 5. Anemia: Postoperative. No evidence of ongoing blood loss. Continue to trend. No indication for transfusion. 6. Ultimate disposition per vascular surgery. Critical care services will sign off at this point time. Feel free to contact us if we can be of additional assistance. Admission and Anticipated Discharge Date Admission Date: April 19, 2022 Subjective Patient seen and examined. EMR reviewed. Discussed with critical care nurse at bedside. Overnight the patient's headache is improved. He is in A. fib with RVR this morning. The A. fib is chronic. He is due for his medications. Patient reports no pain at his neck. No neurological findings. He denies chest pain or shortness of breath Review of Systems Review of Systems: All systems reviewed & are unremarkable except as noted in Subjective Physical Exam Constitutional: WD/WN, vitals as above Neck: trachea midline, no thyromegaly Respiratory: normal respiratory effort, lungs clear to auscultation Cardiovascular: RRR, no murmur, no edema Gastrointestinal (Abdomen): normal bowel sounds, soft, nontender, no hepatosplenomegaly Musculoskeletal: Extremities: extremities normal to inspection Skin: no rashes, warm and dry Neurologic: Nonfocal exam Lymphatic: no cervical lymphadenopathy Results & Data Results & Data ([facility]) Vital Signs (Past 12 Hours) Vital Signs Temp Pulse Resp BP Pulse Ox O2 Del Method 04/20/22 06:02 114 H 21 97 04/20/22 06:02 105/77 04/20/22 06:00 113 H 19 97 04/20/22 05:30 36.5 C 103 H 19 04/20/22 05:00 105/67 04/20/22 04:30 96 H 23 97 04/20/22 04:00 101 H 22 04/20/22 03:50 106 H 22 95 04/20/22 03:40 107 H 22 95 04/20/22 03:30 117 H 24 95 04/20/22 03:00 105/77 04/20/22 02:50 105 H 23 94 04/20/22 02:01 116/71 04/20/22 02:01 116 H 23 98 04/20/22 00:20 100 H 23 117/77 95 04/20/22 00:02 99 H 16 98 04/20/22 00:00 110 H 14 04/19/22 23:00 110 H 23 97 04/19/22 23:00 105/73 04/19/22 23:37 107 H 04/19/22 22:01 124/75 04/19/22 22:01 102 H 24 99 04/19/22 22:00 114 H 24 04/19/22 21:00 108 H 24 99 04/19/22 21:00 123/81 04/19/22 20:01 104 H 22 100 Room Air 04/19/22 20:01 135/91 04/19/22 20:00 36.5 C 103 H 25 H 100 Critical Care Results & Data Vital Signs (Past 12 Hours) Vital Signs Temp Pulse Resp BP Pulse Ox O2 Del Method 04/20/22 06:02 114 H 21 97 04/20/22 06:02 105/77 04/20/22 06:00 113 H 19 97 04/20/22 05:30 36.5 C 103 H 19 04/20/22 05:00 105/67 04/20/22 04:30 96 H 23 97 04/20/22 04:00 101 H 22 04/20/22 03:50 106 H 22 95 04/20/22 03:40 107 H 22 95 04/20/22 03:30 117 H 24 95 04/20/22 03:00 105/77 04/20/22 02:50 105 H 23 94 04/20/22 02:01 116/71 04/20/22 02:01 116 H 23 98 04/20/22 00:20 100 H 23 117/77 95 04/20/22 00:02 99 H 16 98 04/20/22 00:00 110 H 14 04/19/22 23:00 110 H 23 97 04/19/22 23:00 105/73 04/19/22 23:37 107 H 04/19/22 22:01 124/75 04/19/22 22:01 102 H 24 99 04/19/22 22:00 114 H 24 04/19/22 21:00 108 H 24 99 04/19/22 21:00 123/81 04/19/22 20:01 104 H 22 100 Room Air 04/19/22 20:01 135/91 04/19/22 20:00 36.5 C 103 H 25 H 100 Lab & Micro Results (Past 24 Hours) RBC 3.84 M/uL (4.63-6.08) L 04/20/22 WBC 16.20 K/ul (4.8-10.8) H 04/20/22 Hgb 12.1 g/dl (14.0-18.0) L 04/20/22 Hct 35.5 % (40.1-51.0) L 04/20/22 MCV 92.4 fL (80.0-100.0) 04/20/22 MCH 31.5 pg (25.0-34.0) 04/20/22 MCHC 34.1 g/dL (32.0-36.0) 04/20/22 RDW Standard Deviation 44.6 fL (36.4-46.3) 04/20/22 RDW Coefficient of Variation 13.2 % (11.5-14.5) 04/20/22 Plt Count 220 K/uL (130-400) 04/20/22 MPV 10.4 fL (9.4-12.4) 04/20/22 Neutrophils (%) (Auto) 85.1 % 04/20/22 Lymphocytes (%) (Auto) 6.9 % 04/20/22 Monocytes # (Auto) 1.16 K/uL (0.24-0.82) H 04/20/22 Eosinophils # (Auto) 0.01 K/uL (0-0.50) 04/20/22 Immature Granulocyte % (Auto) 0.5 % 04/20/22 Neutrophils # (Auto) 13.81 K/uL (1.4-6.5) H 04/20/22 Lymphocytes # (Auto) 1.11 K/uL (1.2-3.4) L 04/20/22 Monocytes # (Auto) 1.16 K/uL (0.24-0.82) H 04/20/22 Eosinophils # (Auto) 0.01 K/uL (0-0.50) 04/20/22 Basophils # (Auto) 0.03 K/uL (0-0.2) 04/20/22 Immature Granulocyte # (Auto) 0.08 K/uL (0.00-0.02) H 04/20 Na 136 mmol/L (136-145) 04/20/22 K 4.4 mmol/L (3.5-5.1) 04/20/22 Cl 105 mmol/L (98-107) 04/20/22 CO2 25 mmol/L (21-32) 04/20/22 Anion Gap 6 (3-11) 04/20/22 BUN 23 mg/dl (6-23) 04/20/22 Creatinine 1.15 mg/dl (0.6-1.4) 04/20/22 Estimated GFR ( Amer) 77.0 ml/min 04/20/22 Estimated GFR (Non-Af Amer) 66.4 ml/min 04/20/22 BUN/Creatinine Ratio 20.0 (10-20) 04/20/22 Glu 123 mg/dl (70-99(Fasting)) H 04/20/22 Ca 9.3 mg/dl (8.5-10.1) 04/20/22 Phosphorus Level 3.3 mg/dl (2.5-4.9) 04/20/22 Mg 1.8 mg/dl (1.7-2.4) 04/20/22 05:23 Calcium Level 9.3 mg/dl (8.5-10.1) 04/20/22 05:23 I & O Totals 24 Hours 04/19/22 04/20/22 04/21/22 06:59 06:59 06:59 Intake Total 2935.417 / 2935.417 1000 / 1000 Output Total 880 / 880 Balance 2055.417 / 2055.417 1000 / 1000 Cumulative 03/29/22 12:33 thru 04/20/22 07:24 Intake Total 3935.417 Output Total 880 Balance 3055.417 RT Ventilator Mngmt (Last Documented) Ventilator Ordered Settings Respiratory Rate 21 04/20/22 06:02 Ventilator - PT Measurements Respiratory Rate 21 Coding Level of Care Code 03369 Subseq Hosp Care Lvl 2 Diagnoses Status post carotid endarterectomy Z98.890 Hypercholesterolemia E78.00 Headache R51.9 Headache chronicity pattern: acute headache Headache type: unspecified Intractability: not intractable Obstructive sleep apnea G47.33 Hypertension I10 (1) Headache Headache chronicity pattern: acute headache Headache type: unspecified Intr actability: not intractable Qualified Code(s): R51.9 - Headache, unspecified
[2022-04-20] MEDS ORDERED: LOSARTAN/HCTZ 50/12.5MG TAB PO SCH (09:00)
[2022-04-20] MEDS ORDERED: DULoxetine HCL 60 MG CAP PO SCH (09:00)
[2022-04-20] MEDS ORDERED: dilTIAZem HCL 300 MG CAPCR PO SCH (09:00)
[2022-04-20] MEDS ORDERED: LOSARTAN POTASSIUM 50 MG TAB PO SCH (09:00)
[2022-04-20] MEDS ORDERED: APIXABAN 5 MG TABLET PO SCH (09:00)
[2022-04-20] MEDS ORDERED: MULTIVITAMIN TAB PO SCH (09:00)
[2022-04-20] MEDS ORDERED: ASPIRIN 81 MG ECTAB PO SCH (09:00)
--- NOTE | 2022-04-20 12:45 | Surgery Progress Note ---
Date of Service April 20, 2022 Assessment & Plan (1) Status post carotid endarterectomy: Plan: Patient doing well post op day #1 of carotid endarterectomy. D/C home today. Admission and Anticipated Discharge Date Admission Date: April 19, 2022 Subjective Patient without complaint. No swallowing problems. No focal deficits. No speech problems. Physical Exam Constitutional: WD/WN, vitals as above Neck: trachea midline Respiratory: normal respiratory effort; no respiratory distress Cardiovascular: Rate/Rhythm: + irregularly irregular Musculoskeletal: no cyanosis or clubbing, extremities motor strength 5/5 Neurologic: CN's II-XI intact bilaterally and moves all extremities Psychiatric: A+Ox3, euthymic affect Results & Data ([facility]) Vital Signs (Past 12 Hours) Vital Signs Temp Pulse Resp BP Pulse Ox 04/20/22 12:00 96 H 19 98 04/20/22 11:00 96 H 19 98 04/20/22 10:00 96 H 19 97 04/20/22 10:00 121/66 04/20/22 09:00 108 H 27 H 97 04/20/22 08:01 112 H 24 98 04/20/22 08:01 119/76 04/20/22 08:00 116 H 19 95 04/20/22 07:37 127 H 25 H 99 04/20/22 07:37 142/106 H 04/20/22 07:00 115 H 23 96 04/20/22 07:00 128/91 04/20/22 07:48 36.6 C 04/20/22 06:02 114 H 21 97 04/20/22 06:02 105/77 04/20/22 06:00 113 H 19 97 04/20/22 05:30 36.5 C 103 H 19 04/20/22 05:00 105/67 04/20/22 04:30 96 H 23 97 04/20/22 04:00 101 H 22 04/20/22 03:50 106 H 22 95 04/20/22 03:40 107 H 22 95 04/20/22 03:30 117 H 24 95 04/20/22 03:00 105/77 04/20/22 02:50 105 H 23 94 04/20/22 02:01 116/71 04/20/22 02:01 116 H 23 98
--- NOTE | 2022-04-20 12:49 | Discharge Summary ---
Date of Service April 20, 2022 Admission HPI Per Admitting Provider Chief Complaint rm#[id number] here for EVAL after hospitalization for COVID and was found to have ICA stenosis per CTA neck History of Present Illness I the pleasure of seeing Cleve today for evaluation of his carotid disease. As you know he is a 67-year-old gentleman who was admitted to [facility] for headache and was found to have a COVID. During his hospital stay he had a CT angiogram of his carotid arteries which showed a severe 80 to 85% narrowing of his left internal carotid artery. He was asymptomatic neurologically from this and is and remains asymptomatic. He denies any symptoms of claudication. He does have atrial fibrillation and takes Eliquis for it. He denies any chest pain or shortness of breath on exertion. Review of Systems 10 systems were reviewed. Positive findings included his irregular heartbeat cough wheezing shortness of breath. The rest of positive findings per the HPI. Physical Exam Vitals & Measurements HR: 85 (Monitored) BP: 126/76 SpO2: 98% Input and Output - Last 24 hours (Last 8 hours) No I/O Data Found: Physical exam showed a well-nourished well-developed male. He is in no apparent distress. His blood pressure is 126/76 on the right 116/80 on the left. Radials carotids and superficial temporal arteries are +2 bilaterally. There is a soft left carotid bruit. Heart had a regular rate and rhythm. Abdominal exam was benign I cannot appreciate a pulsatile mass. Femorals and pedal pulses are all +2 bilaterally with normal capillary refill. Neurologic Casey is intact to motor and sensory function. Assessment/Plan 1. Carotid stenosis, left At this point I recommended a left carotid endarterectomy. Patient understood the risks options and benefits and agreed. This procedure. We will obtain echo preoperatively for cardiac evaluation prior to surgery. Thank you very much for letting us participate in the care of this patient. Sincerely, Radha Garvin MD Ordered: Echo TransTHORacic TTE Complete Problem List/Past Medical History Ongoing Carotid stenosis, left Historical No qualifying data Medications Inpatient No active inpatient medications Home aspirin 81 mg oral delayed release tablet, 81 mg= 1 tab, PO, Daily DilTIAZem (Eqv-Tiazac) 300 mg/24 hours oral capsule, extended release DULoxetine 60 mg oral delayed release capsule, 60 mg= 1 cap, PO, Daily Eliquis 5 mg oral tablet, 5 mg= 1 tab, PO, bid hydroCHLOROthiazide-losartan 12.5 mg-100 mg oral tablet, 1 tab, PO, Daily Tylenol 8 HR Arthritis Pain 650 mg oral tablet, extended release, 1300 mg= 2 tab, PO, Daily, PRN Allergies NKA Social History Smoking Status Never smoked cigarettes Signature Line Electronic Signature on File David Garvin MD Author Signature Dt/Tm: 03/28/2022 03:49 PM 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 He is in no apparent distress. His blood pressure is 126/76 on the right 116/80 on the left. Radials carotids and superficial temporal arteries are +2 bilaterally. There is a soft left carotid bruit. Heart had a regular rate and rhythm. Abdominal exam was benign I cannot appreciate a pulsatile mass. Femorals and pedal pulses are all +2 bilaterally with normal capillary refill. Neurologic Casey is intact to motor and sensory function. Principal Diagnosis Left internal carotid artery stenosis, left carotid endarterctomy Discharge Exam Constitutional WD/WN, vitals as above Neck trachea midline Respiratory normal respiratory effort; no respiratory distress Cardiovascular Rate/Rhythm: + irregularly irregular Musculoskeletal no cyanosis or clubbing, extremities motor strength 5/5 Neurologic CN's II-XI intact bilaterally and moves all extremities Psychiatric A+Ox3, euthymic affect Discharge Data Allergies Allergy/AdvReac Type Severity Reaction Status Date / Time Umbmfxt-FBX-NfB Reductase AdvReac Mild Joint aches Verified 04/19/22 06:22 Inhibitor [Vlahiup-Itu-Rez Reductase Inhibitor] ropinirole AdvReac Excessive Verified 04/19/22 06:22 sedation Consultations 04/19/22 11:58 Consult Life Science Technical Officer Routine Procedures Performed Operation Date: 04/19/22 07:30 Actual Procedures p Left Carotid Endarterectomy with bovine patch.(Left) - David Garvin MD Hospital Course (1) Status post carotid endarterectomy: Patient doing well post op day #1 of carotid endarterectomy. D/C home today. Total Time Total Time Spent Total Time Spent (In Minutes): 0 Discharge Plan Discharge Items Patient Disposition: Home - Self-Care Reason For Visit: Left Internal Carotid Artery Stenosis Discharge Diagnosis: Left internal carotid artery stenosis, left carotid endarterectomy Activity: Per Instructions section Non-emergency contact: Surgeon Call non-emergency contact if: your temperature is above 101.5, your wound has increased redness, your wound has increased drainage and your wound pain has increased Follow-up/Referrals: Walter Herr MD [Primary Care Provider] - Diet: Heart Healthy Addtl Attending Provider Instructions: SPECIAL CARE INSTRUCTIONS: Medications: * Continue to take Aspirin as directed. Incision Care: * You may shower, but do not rub incision. You may let the warm soapy water run over it. Be sure to dry the incision well after bathing. * Do not shave directly over the incision until it is healed. * DO NOT IMMERSE THE INCISION IN A TUB/POOL/etc. UNTIL HEALED. Restrictions: * Do not drive for at least one week or if you are still taking any narcotic pain medication. * Do not lift anything heavier than a gallon of milk for one week after going home. Possible Complications: * Numbness - It is normal to have some numbness around the incision. Numbness can extend beyond the incision to areas of the neck, ear and face. The numbness is due to bruising of nerves during the surgery and will gradually improve over a period of months. * Hoarseness/Difficulty Speaking and Swallowing - The bruising of nerves in the neck can also cause a hoarse voice, difficulty speaking or swallowing. This may improve over time, HOWEVER, if it continues for more than a few days please contact our office ([phone]). * Excessive Swelling - There will be some swelling immediately after surgery which usually resolves within one week. If you notice that the swelling is getting worse, notify your surgeon ([phone]). * Drainage/Bleeding - If there is any drainage or bleeding, it should be a very small amount (less than a teaspoon per day). If you have excessive bleeding or drainage from the incision, call your surgeon ([phone]) right away. ACTIVATION OF EMERGENCY MEDICAL SYSTEM: Call 911, immediately, if you experience any of the following: Warning Signs and Symptoms of Stroke: * Sudden numbness or weakness of the face, arm or leg, especially on one side of the body * Sudden confusion, trouble speaking or understanding * Sudden trouble seeing in one or both eyes * Sudden trouble walking, dizziness, loss of balance or coordination * Sudden severe headache with no cause Do not delay calling 911 if you experience any warning signs or symptoms of a stroke. Delay in seeking medical attention may affect what treatments can be given to you. Risk Factors for Stroke: You can reduce your chances of stroke by working with your medical provider to adopt a healthy lifestyle. Some specific ways to lower your chance of stroke are: * If you are a smoker, now is the time to stop smoking cigarettes * If you are diabetic, improve the control of your blood sugars * Avoid excessive amounts of alcohol * Control high blood pressure * Lose weight if you are overweight * Be sure to lead an active lifestyle * Eat a healthy diet low in salt, cholesterol and fat You should know about other risk factors for stroke that you are unable to control. These include: * Age 55 years or older * Male gender * Certain racial groups: , or / * Family History of Stroke, Mini stroke or Heart Attack * Sickle Cell Disease You will be receiving a call from the Vascular Surgery Nurse after you are discharged. FOLLOW UP VISIT: It is important for you to keep your follow up appointments with your medical provider. Keep any scheduled doctor appointments. Call [phone] to schedule a follow up appointment if one not already scheduled. Stand-Alone Forms: My [employer], Smoking Cessation Medications and DC Order Prescriptions: New tramadol 50 mg tablet 50 mg PO Q8H PRN (Reason: pain) Qty: 10 0RF Continued Eliquis 5 mg tablet 5 mg PO BID Qty: 180 3RF diltiazem HCl 300 mg capsule,extended release 24 hr 300 mg PO DAILY Qty: 90 0RF Rx Instructions: @1600. multivitamin [Daily Multi-Vitamin] tablet 1 tab PO QAM duloxetine 60 mg capsule,delayed release(DR/EC) 60 mg PO QAM losartan-hydrochlorothiazide 100-12.5 mg tablet 0.5 tab PO QAM acetaminophen 650 mg Tablet Extended Release 650 mg PO Q12H PRN (Reason: Pain) aspirin 81 mg tablet,delayed release (DR/EC) 81 mg PO QAM Discharge Orders: Discharge Order (Routine); Ordered 04/20/22 Ordered By: David Garvin Admission Data Admit Date/Time: 04/19/22 07:20 Attending Provider: David Garvin Admit Provider: David Garvin Primary Care Provider: Walter Herr Other Providers: Brian Reynaga ; Davin Wright ; Estuardo Samayoa ; Jose Martin Alanis ; Alhaji Castro ; Devonte Hermosillo ; Luca Kenny ; [employer] [place] ; Telma Downs
== END 2022-04-20 14:40 | disposition home or self-care (01) | DRG 38 ==
LOC: ASU 05:56 → PACUINP 07:20 → 1E 13:09